=== PATIENT | female | born 1960 | race African-American/Black ===

== ENCOUNTER 2016-11-19 10:55 | Emergency (ER) | payer OTHER ==
[~2016-11-19] VITALS: Ht 167.6 cm; Wt 74.8 kg
[~2016-11-19 10:55] MED LIST: BACL10TA PO; CARB200T4 PO; EZET10TA3 PO; FENT1PAT15 TD; FERR-26 PO; HYDR-971 PO; HYDR12.58 PO; LIDO700A4 TP; OMEP20TA PO; POTA10TA5 PO; SENN1TAB9 PO; SIMV10TA3 PO
--- NOTE | 2016-11-19 11:59 | PHYS DOC ---
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 Patient is nonverbal due to CVA. She communicates by nodding her head and saying "yes" and "no." Communication is slightly difficult but manageable. She denies any chest pain or shortness of breath. Review of Systems Review of Systems Constitutional: Denies fever or chills [] Eyes: Denies change in visual acuity, redness, or eye pain [] HENT: Denies nasal congestion or sore throat [] Respiratory: Denies cough or shortness of breath [] Cardiovascular: See history of present illness GI: Midepigastric abdominal pain : Denies dysuria or hematuria [] Musculoskeletal: Denies back pain or joint pain [] Integument: Denies rash or skin lesions [] Neurologic: Denies headache, focal weakness or sensory changes [] Endocrine: Denies polyuria or polydipsia [] Current Medications Current Medications Current Medications Medications (Trade) Dose Ordered Sig/Becky Start Time Stop Time Status Last Admin Dose Admin Famotidine 20 mg 20 mg 1X ONCE 11/19/16 12:00 11/19/16 12:01 DC 11/19/16 13:40 20 MG Sodium Chloride (Iv Sodium Chloride 0.9% 1000ml Bag) 1,000 ml @ 1,000 mls/hr 1X ONCE 11/19/16 12:00 11/19/16 12:59 DC 11/19/16 13:39 1,000 MLS/HR Allergies Allergies Allergies Coded Allergies Type Severity Reaction Last Updated Verified No Known Drug Allergies 10/08/14 No Physical Exam Physical Exam Constitutional: Well developed, well nourished, no acute distress, non-toxic appearance. [] HENT: Normocephalic, atraumatic, bilateral external ears normal, oropharynx moist, no oral exudates, nose normal. [] Eyes: PERRLA, EOMI, conjunctiva normal, no discharge. [] Neck: Normal range of motion, no tenderness, supple, no stridor. [] Cardiovascular:Heart rate regular rhythm, no murmur [] Lungs & Thorax: Bilateral breath sounds clear to auscultation [] Abdomen: Flat abdomen. Bowel sounds normal, soft, no tenderness, no masses, no pulsatile masses. [] Skin: Warm, dry, no erythema, no rash. [] Back: No tenderness, no CVA tenderness. [] Extremities: No tenderness, no cyanosis, no clubbing, ROM intact, no edema. [] Neurologic: Alert and oriented X 3, normal motor function, normal sensory function, no focal deficits noted. [] Psychologic: Affect normal, judgement normal, mood normal. [] Current Patient Data Vital Signs Vital Signs Date Time Temp Pulse Resp B/P Pulse Ox O2 Delivery O2 Flow Rate FiO2 11/19/16 11:17 97.5 85 16 138/92 97 Room Air 97.5 Lab Values Laboratory Tests Test 11/19/16 11:10 11/19/16 12:50 Urine Collection Type Void Urine Color Yellow Urine Clarity Clear Urine pH 8.0 Urine Specific [place] 1.020 Urine Protein Negativemg/dL (NEG-TRACE) Urine Glucose (UA) Negativemg/dL (NEG) Urine Ketones (Stick) Negativemg/dL (NEG) Urine Blood Negative (NEG) Urine Nitrite Negative (NEG) Urine Bilirubin Negative (NEG) Urine Urobilinogen Dipstick 1.0mg/dL (0.2 mg/dL) Urine Leukocyte Esterase Negative (NEG) Urine RBC 0/HPF (0-2) Urine WBC 0/HPF (0-4) Urine Squamous Epithelial Cells Few/LPF Urine Bacteria 0/HPF (0-FEW) White Blood Count 2.6x10^3/uL (4.0-11.0) L Red Blood Count 4.41x10^6/uL (3.50-5.40) Hemoglobin 13.0g/dL (12.0-15.5) Hematocrit 40.7% (36.0-47.0) Mean Corpuscular Volume 92fL (79-100) Mean Corpuscular Hemoglobin 30pg (25-35) Mean Corpuscular Hemoglobin Concent 32g/dL (31-37) Red Cell Distribution Width 13.3% (11.5-14.5) Platelet Count 130x10^3/uL (140-400) L Neutrophils (%) (Auto) 57% (31-73) Lymphocytes (%) (Auto) 31% (24-48) Monocytes (%) (Auto) 10% (0-9) H Eosinophils (%) (Auto) 2% (0-3) Basophils (%) (Auto) 1% (0-3) Neutrophils # (Auto) 1.5x10^3uL (1.8-7.7) L Lymphocytes # (Auto) 0.8x10^3/uL (1.0-4.8) L Monocytes # (Auto) 0.3x10^3/uL (0.0-1.1) Eosinophils # (Auto) 0.1x10^3/uL (0.0-0.7) Basophils # (Auto) 0.0x10^3/uL (0.0-0.2) Sodium Level 142mmol/L (136-145) Potassium Level 3.5mmol/L (3.5-5.1) Chloride Level 103mmol/L (98-107) Carbon Dioxide Level 31mmol/L (21-32) Anion Gap 8 (6-14) Blood Urea Nitrogen 22mg/dL (7-20) H Creatinine 0.7mg/dL (0.6-1.0) Estimated GFR (Cockcroft-Gault) 104.4 BUN/Creatinine Ratio 31 (6-20) H Glucose Level 83mg/dL (70-99) Calcium Level 9.8mg/dL (8.5-10.1) Total Bilirubin 0.3mg/dL (0.2-1.0) Aspartate Amino Transferase (AST) 25U/L (15-37) Alanine Aminotransferase (ALT) 24U/L (14-59) Alkaline Phosphatase 99U/L (46-116) Total Protein 7.8g/dL (6.4-8.2) Albumin 3.6g/dL (3.4-5.0) Albumin/Globulin Ratio 0.9 (1.0-1.7) L Lipase 139U/L (73-393) Laboratory Tests 11/19/16 12:50 Laboratory Tests 11/19/16 12:50 EKG EKG [] Radiology/Procedures Radiology/Procedures [] Course & Med Decision Making Course & Med Decision Making Pertinent Labs and Imaging studies reviewed. (See chart for details) Patient is in the ED with midepigastric abdominal pain for unknown period of time. Patient has CVA and not able to communicate verbally. Communication is done mostly by her nodding her head or shaking it or saying yes or no EKG interpreted by Dr. Meyers sinus rate them heart rate 59 interval 70 no STEMI. Patient's labs are negative for any acute findings. Ultrasound is negative for acute findings.Symptoms consistent with GERD. Patient was discharged with omeprazole. Follow-up with her own PCP in 7 days. Dragon Disclaimer Dragon Disclaimer This electronic medical record was generated, in whole or in part, using a voice recognition dictation system. Departure Departure Impression: Primary Impression: Epigastric abdominal pain Disposition: 01 HOME, SELF-CARE Condition: STABLE Referrals: Marquita AGUILERA MD (PCP) follow up with your doctor next week Patient Instructions: Gastroesophageal Reflux Disease, Adult Additional Instructions: Your symptoms are suspicious for acid reflex. Take the prescribed medicines as ordered. Follow-up with your doctor in the next 7 days. Come back to the ED if symptoms worsen. Your ultrasound of the abdomen was negative for any acute findings but was noted for a cyst in one of the kidneys. Follow-up with your doctor for this. Scripts Omeprazole 20 Mg Tablet.dr1 Tab PO DAILY #20 TAB Ref 1 Prov:MARCK MA APRN 11/19/16 MARCK MA APRN Nov 19, 2016 11:59
[2016-11-19] MEDS ORDERED: FAMOTIDINE 20 MG/2 ML VIAL IVP ONE (12:00)
[2016-11-19] MEDS ORDERED: IV NORMAL SALINE 1000ML BAG 1,000 ML IV ONE (12:00)
[2016-11-19 12:32] LABS: BILIRUBIN,URINE NEGATIVE (NEG); GLUCOSE,URINE NEGATIVE (NEG); NITRITE,URINE NEGATIVE (NEG); PROTEIN,URINE NEGATIVE (NEG-TRACE)
[2016-11-19 12:33] LABS: BACTERIA,URINE 0 /HPF (0-FEW); RBC,URINE 0 /HPF (0-2); SQUAMOUS EPITHELIAL CELL,UR FEW /LPF; WBC,URINE 0 /HPF (0-4)
[2016-11-19 13:24] LABS: BASO % 1 % (0-3); EOS % 2 % (0-3); HEMATOCRIT 40.7 % (36.0-47.0); LYMPH # 0.8 x10^3/uL (1.0-4.8); LYMPH % 31 % (24-48); MEAN CORPUSCULAR HEMOGLOBIN 30 pg (25-35); MEAN CORPUSCULAR HGB CONC 32 g/dL (31-37); MEAN CORPUSCULAR VOLUME 92 fL (79-100); MONO % 10 % (0-9); NEUT % 57 % (31-73); PLATELET COUNT 130 x10^3/uL (140-400); RED BLOOD COUNT 4.41 x10^6/uL (3.50-5.40); RED CELL DISTRIBUTION WIDTH 13.3 % (11.5-14.5); WHITE BLOOD COUNT 2.6 x10^3/uL (4.0-11.0)
--- NOTE | 2016-11-19 13:24 | RAD ---
Examination: Ultrasound abdomen complete History: History of epigastric pain Comparison: 11/09/2005 Findings: Examination is limited due to bowel gas. No evidence of gallstones identified. The pancreas, aorta, IVC, spleen are poorly visualized due to bowel gas. The left kidney could not be identified due to bowel gas. The echogenicity the liver grossly appears unremarkable. The right kidney measures 9.5 x 4 0.4 to 4.3 cm. There is a 8 mm cystic structure identified in the right kidney probably cyst. Impression: 1. No obvious evidence of gallstones 2. Examination limited due to bowel gas. 2. Subcentimeter cystic structure identified in the right kidney probably a cyst.
[2016-11-19 13:28] LABS: CALCIUM 9.8 mg/dL (8.5-10.1); CREATININE 0.7 mg/dL (0.6-1.0); GFR 104.4; POTASSIUM 3.5 mmol/L (3.5-5.1)
[2016-11-19 13:34] LABS: ALBUMIN 3.6 g/dL (3.4-5.0); ALBUMIN/GLOBULIN RATIO 0.9 (1.0-1.7); TOTAL BILIRUBIN 0.3 mg/dL (0.2-1.0); TOTAL PROTEIN 7.8 g/dL (6.4-8.2)
[2016-11-19] MEDS ORDERED: OMEP20TA PO (14:23)
[2016-11-19 15:06] VITALS: BP 143/86
--- NOTE | 2016-11-19 15:10 | EKG ---
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
== END 2016-11-19 15:52 | disposition home or self-care (01) ==
LOC: ER 10:55
DX: R10.13 Epigastric pain (principal); K21.9 Gastro-esophageal reflux disease without esophagitis; G81.91 Hemiplegia, unspecified affecting right dominant side; Z86.73 Personal history of transient ischemic attack (TIA), and cerebral infarction without residual deficits
CPT/HCPCS: 36415; 76700; 80053; 81001; 83690; 85027; 93005; 96361; 96374; 99285; J7030; S0028

== ENCOUNTER 2017-04-19 22:25 | Emergency (ER) | payer OTHER ==
[~2017-04-19] VITALS: Ht 162.6 cm; Wt 74.8 kg
[~2017-04-19 22:25] MED LIST changes: +EZET10TA18 PO; -EZET10TA3 PO; -OMEP20TA PO; +OMEP20TA8 PO
[2017-04-19] MEDS ORDERED: OMEP20TA8 PO (22:53)
[2017-04-19 23:18] LABS: BILIRUBIN,URINE NEGATIVE (NEG); GLUCOSE,URINE NEGATIVE (NEG); NITRITE,URINE NEGATIVE (NEG); PROTEIN,URINE NEGATIVE (NEG-TRACE); UROBILINOGEN,URINE 0.2 mg/dL (0.2 mg/dL)
--- NOTE | 2017-04-19 23:23 | RAD ---
CT Abdomen and Pelvis without contrast History: Left upper quadrant pain today Technique: Noncontrast CT imaging was performed of the abdomen and pelvis. Multiplanar images are reviewed. Exposure: One or more of the following individualized dose reduction techniques were utilized for this examination: 1. Automated exposure control 2. Adjustment of the mA and/or kV according to patient size 3. Use of iterative reconstruction technique. Comparison: August 09, 2016 Findings: There is motion degradation.Accurate evaluation of abdominal visceral organs is limited without intravenous contrast, also limited evaluation due to motion. There is no new obvious abnormality of the spleen, liver, or pancreas. Gallbladder is present without obvious intraluminal abnormality by CT. There is no adrenal nodularity. No urolithiasis or hydronephrosis is identified. No significantly enlarged nodes are identified. Accurate evaluation of bowel is limited without oral contrast. There is variable fairly prominent retained stool in the colon. Appendix cannot be clearly identified if still present. There is artifact in the pelvis created by right hip arthroplasty. There is no significant free air, free fluid, or small bowel dilatation. There is mild reverse S-shaped curvature of the thoracolumbar spine. Impression: 1. There is variable prominent retained stool in the colon. Electronically signed by: Alex Alejandra MD (04/19/2017 11:19 PM) [facility]
[2017-04-19 23:31] LABS: BACTERIA,URINE MOD /HPF (0-FEW); RBC,URINE OCC /HPF (0-2); SQUAMOUS EPITHELIAL CELL,UR MOD /LPF; WBC,URINE >40 /HPF (0-4)
[2017-04-19 23:42] LABS: BASO % 1 % (0-3); EOS % 2 % (0-3); HEMATOCRIT 38.3 % (36.0-47.0); LYMPH # 1.2 x10^3/uL (1.0-4.8); LYMPH % 42 % (24-48); MEAN CORPUSCULAR HEMOGLOBIN 29 pg (25-35); MEAN CORPUSCULAR HGB CONC 34 g/dL (31-37); MEAN CORPUSCULAR VOLUME 86 fL (79-100); MONO % 11 % (0-9); NEUT % 45 % (31-73); PLATELET COUNT 138 x10^3/uL (140-400); RED BLOOD COUNT 4.44 x10^6/uL (3.50-5.40); RED CELL DISTRIBUTION WIDTH 14.2 % (11.5-14.5); WHITE BLOOD COUNT 2.8 x10^3/uL (4.0-11.0)
[2017-04-19 23:48] LABS: CALCIUM 8.8 mg/dL (8.5-10.1); CREATININE 0.9 mg/dL (0.6-1.0); GFR 77.8; POTASSIUM 3.4 mmol/L (3.5-5.1)
[2017-04-19 23:54] LABS: ALBUMIN 3.3 g/dL (3.4-5.0); ALBUMIN/GLOBULIN RATIO 0.8 (1.0-1.7); TOTAL BILIRUBIN 0.1 mg/dL (0.2-1.0); TOTAL PROTEIN 7.4 g/dL (6.4-8.2)
[2017-04-20] MEDS ORDERED: SULF1TAB24 PO (00:37)
--- NOTE | 2017-04-20 00:37 | PHYS DOC ---
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 It is mild nonradiating and without alleviating or exacerbating factors. She denies any vomiting blood in stool or diarrhea. Review of systems is negative for shortness of breath chest pain fevers chills. All other review of systems is negative unless otherwise noted in history of present illness. ED course: 57-year-old female with a history of CVA with residual deficits presenting to the emergency department today with left upper quadrant abdominal pain. Vital signs showed mild chronic hypertension. Otherwise unremarkable. Abdominal exam:Soft nontender abdomen without rebound tenderness or guarding present. Negative McBurneys point. Negative Pulido sign. No ecchymosis present. Otherwise the remainder the examination shows previous left-sided neurologic deficits. Blood work obtained. CT abdomen obtained. Patient has mild leukopenia. Urinalysis showed possible infection. Culture sent and antibiotics ordered. Chemistry panel otherwise unremarkable. The abdomen pelvis CT shows no acute pathology. The patient was then discharged home in stable condition to follow up with their primary care physician over the next 2-3 days. They were to return if their symptoms worsened or if they were concerned for any reason. [id number] discharge instructions and return precautions were given. Patient' s questions were answered to their satisfaction. Patient is comfortable plan. Review of Systems Review of Systems SEE ABOVE. Allergies Allergies Allergies Coded Allergies Type Severity Reaction Last Updated Verified No Known Drug Allergies 10/08/14 No Physical Exam Physical Exam SEE ABOVE Constitutional: Well developed, well nourished, no acute distress, non-toxic appearance. [] HENT: Normocephalic, atraumatic, bilateral external ears normal, oropharynx moist, no oral exudates, nose normal. [] Eyes: PERRLA, EOMI, conjunctiva normal, no discharge. [] Neck: Normal range of motion, no tenderness, supple, no stridor. [] Cardiovascular:Heart rate regular rhythm, no murmur [] Lungs & Thorax: Bilateral breath sounds clear to auscultation [] Abdomen: Soft nontender abdomen without rebound tenderness or guarding present. Negative McBurneys point. Negative Pulido sign. No ecchymosis present. Skin: Warm, dry, no erythema, no rash. [] Back: No tenderness, no CVA tenderness. [] Extremities: No tenderness, no cyanosis, no clubbing, ROM intact, no edema. [] Neurologic: Alert and oriented . pt has chronic right-sided upper and left lower extremity deficits without any acute changes or new deficits. She has chronic aphasia without acute changes. Psychologic: Affect normal, judgement normal, mood normal. [] Current Patient Data Vital Signs Vital Signs Date Time Temp Pulse Resp B/P (MAP) Pulse Ox O2 Delivery O2 Flow Rate FiO2 04/19/17 22:25 97.7 65 20 150/75 (100) 100 Room Air 97.7 Lab Values Laboratory Tests Test 04/19/17 22:55 04/19/17 23:30 Urine Collection Type U cath Urine Color Yellow Urine Clarity Clear Urine pH 6.0 Urine Specific [place] 1.015 Urine Protein Negative mg/dL (NEG-TRACE) Urine Glucose (UA) Negative mg/dL (NEG) Urine Ketones (Stick) Negative mg/dL (NEG) Urine Blood Negative (NEG) Urine Nitrite Negative (NEG) Urine Bilirubin Negative (NEG) Urine Urobilinogen Dipstick 0.2 mg/dL (0.2 mg/dL) Urine Leukocyte Esterase Moderate (NEG) Urine RBC Occ /HPF (0-2) Urine WBC >40 /HPF (0-4) Urine Squamous Epithelial Cells Mod /LPF Urine Bacteria Mod /HPF (0-FEW) White Blood Count 2.8 x10^3/uL (4.0-11.0) L Red Blood Count 4.44 x10^6/uL (3.50-5.40) Hemoglobin 13.0 g/dL (12.0-15.5) Hematocrit 38.3 % (36.0-47.0) Mean Corpuscular Volume 86 fL (79-100) Mean Corpuscular Hemoglobin 29 pg (25-35) Mean Corpuscular Hemoglobin Concent 34 g/dL (31-37) Red Cell Distribution Width 14.2 % (11.5-14.5) Platelet Count 138 x10^3/uL (140-400) L Neutrophils (%) (Auto) 45 % (31-73) Lymphocytes (%) (Auto) 42 % (24-48) Monocytes (%) (Auto) 11 % (0-9) H Eosinophils (%) (Auto) 2 % (0-3) Basophils (%) (Auto) 1 % (0-3) Neutrophils # (Auto) 1.3 x10^3uL (1.8-7.7) L Lymphocytes # (Auto) 1.2 x10^3/uL (1.0-4.8) Monocytes # (Auto) 0.3 x10^3/uL (0.0-1.1) Eosinophils # (Auto) 0.0 x10^3/uL (0.0-0.7) Basophils # (Auto) 0.0 x10^3/uL (0.0-0.2) Sodium Level 145 mmol/L (136-145) Potassium Level 3.4 mmol/L (3.5-5.1) L Chloride Level 105 mmol/L (98-107) Carbon Dioxide Level 33 mmol/L (21-32) H Anion Gap 7 (6-14) Blood Urea Nitrogen 21 mg/dL (7-20) H Creatinine 0.9 mg/dL (0.6-1.0) Estimated GFR (Cockcroft-Gault) 77.8 BUN/Creatinine Ratio 23 (6-20) H Glucose Level 96 mg/dL (70-99) Calcium Level 8.8 mg/dL (8.5-10.1) Total Bilirubin 0.1 mg/dL (0.2-1.0) L Aspartate Amino Transferase (AST) 20 U/L (15-37) Alanine Aminotransferase (ALT) 24 U/L (14-59) Alkaline Phosphatase 116 U/L (46-116) Troponin I Quantitative < 0.017 ng/mL (0.000-0.055) Total Protein 7.4 g/dL (6.4-8.2) Albumin 3.3 g/dL (3.4-5.0) L Albumin/Globulin Ratio 0.8 (1.0-1.7) L Lipase 178 U/L (73-393) Laboratory Tests 04/19/17 23:30 Laboratory Tests 04/19/17 23:30 EKG EKG [] Radiology/Procedures Radiology/Procedures [] Course & Med Decision Making Course & Med Decision Making Pertinent Labs and Imaging studies reviewed. (See chart for details) [] Dragon Disclaimer Dragon Disclaimer This electronic medical record was generated, in whole or in part, using a voice recognition dictation system. Departure Departure Impression: Primary Impression: Epigastric abdominal pain Additional Impression: UTI (urinary tract infection) Disposition: HOME, SELF-CARE Condition: STABLE Referrals: Marquita AGUILERA MD (PCP) Patient Instructions: Abdominal Pain (Nonspecific), Urinary Tract Infection Additional Instructions: Thank you for allowing us to participate in your care today. Followup with your primary care physician in 3 days if your symptoms do not improve. Call your Primary Doctor tomorrow and inform them of your visit today. If you do not have a primary care provider you can ask for a list of our primary care providers. Return to the emergency department you have any new or concerning findings. This should be evaluated by the primary care physician and any necessary consulting services for continued management within a few days after discharge. Return to emergency room if you have any new or concerning symptoms including but not limited to fever, chills, nausea, vomiting, intractable pain, any new rashes, chest pain, shortness of air, uncontrolled bleeding, difficulty breathing, and/or vision loss. Scripts Sulfamethoxazole/Trimethoprim (BACTRIM DS TABLET) 1 Each Tablet 1 TAB PO BID, #14 TAB Prov: RICHARD SON MD 04/20/17 Problem Qualifiers RICHARD SON MD Apr 20, 2017 00:37
[2017-04-20 01:10] VITALS: BP 150/78
== END 2017-04-20 01:15 | disposition home or self-care (01) ==
LOC: ER 22:25
DX: N39.0 Urinary tract infection, site not specified (principal); R10.13 Epigastric pain; I10 Essential (primary) hypertension; K21.9 Gastro-esophageal reflux disease without esophagitis; Z86.73 Personal history of transient ischemic attack (TIA), and cerebral infarction without residual deficits
CPT/HCPCS: 36415; 74176; 80053; 81001; 83690; 84484; 85025; 99285-25

== ENCOUNTER 2017-10-02 08:30 | Emergency (ER) | payer OTHER | END 2017-10-02 10:38 | disposition home or self-care (01) | LOC: ER 10:38 | DX: J06.9 Acute upper respiratory infection, unspecified (principal); K21.9 Gastro-esophageal reflux disease without esophagitis | CPT/HCPCS: 71046; 99284 ==

== ENCOUNTER 2018-09-10 15:23 | Emergency (ER) | payer OTHER ==
[~2018-09-10] VITALS: Ht 162.6 cm; Wt 64.4 kg
[~2018-09-10 15:23] MED LIST changes: +BACL20TA PO; +BENZ100C PO; -FERR-26 PO; +FERR325T14 PO; +HYDR-2765 PO; +HYDR-3164 PO; -HYDR-971 PO; +LEVO250T25 PO; +LOSA-73 PO; +NAPR-683 PO; +OMEP20CA9 PO; +POLY17PO28 PO; +POTA10TA12 PO; -POTA10TA5 PO; +PROAIR RESPICL90 MCG IH; +SULF1TAB24 PO
[2018-09-10] MEDS ORDERED: CYCLOBENZAPRINE 10 MG TABLET. PO ONE (15:45)
[2018-09-10] MEDS ORDERED: HYDROcodone/APAP 5/325MG 1 TAB TABLET PO ONE (15:45)
--- NOTE | 2018-09-10 15:46 | PHYS DOC ---
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 Patient denies any known injury. She states she is usually ambulatory with a walker and has not fallen recently. Denies any chest pain, shortness of breath. Denies any recent hospitalizations. Denies any personal history of DVTs. She is not sure which blood thinners she is on. I highly suspect Plavix and or aspirin. Review of Systems Review of Systems Constitutional: Denies fever or chills [] Eyes: Denies change in visual acuity, redness, or eye pain [] HENT: Denies nasal congestion or sore throat [] Respiratory: Denies cough or shortness of breath [] Cardiovascular: No additional information not addressed in HPI [] GI: Denies abdominal pain, nausea, vomiting, bloody stools or diarrhea [] : Denies dysuria or hematuria [] Musculoskeletal: Reports right ventral thigh pain. Denies back pain or joint pain [] Integument: Denies rash or skin lesions [] Neurologic: Denies headache, focal weakness or sensory changes [] All other systems were reviewed and found to be within normal limits, except as documented in this note. Current Medications Current Medications Current Medications Medications (Trade) Dose Ordered Sig/Becky Start Time Stop Time Status Last Admin Dose Admin Acetaminophen/ Hydrocodone Bitart (Lortab 5/325) 1 tab 1X ONCE 09/10/18 15:45 09/10/18 15:46 DC 09/10/18 16:40 1 TAB Cyclobenzaprine HCl (Flexeril) 10 mg 1X ONCE 09/10/18 15:45 09/10/18 15:46 DC 09/10/18 16:40 10 MG Potassium Chloride (Klor-Con) 40 meq 1X ONCE 09/10/18 17:15 09/10/18 17:16 DC 09/10/18 17:48 40 MEQ Allergies Allergies Allergies Coded Allergies Type Severity Reaction Last Updated Verified ceftriaxone Allergy Intermediate SWELLING,HIVES 10/16/17 Yes Physical Exam Physical Exam Constitutional: Well developed, well nourished, no acute distress, non-toxic appearance. [] HENT: Normocephalic, atraumatic, bilateral external ears normal, oropharynx moist, no oral exudates, nose normal. [] Eyes: PERRLA, EOMI, conjunctiva normal, no discharge. [] Neck: Normal range of motion, no tenderness, supple, no stridor. [] Cardiovascular:Heart rate regular rhythm, no murmur [] Lungs & Thorax: Bilateral breath sounds clear to auscultation [] Abdomen: Bowel sounds normal, soft, no tenderness, no masses, no pulsatile masses. [] Skin: Warm, dry, no erythema, no rash. [] Back: No tenderness, no CVA tenderness. [] Extremities: Patient's right side appears deformed from a previous stroke. Right upper extremity is contracted, right hand is in a splint. Right lower extremity is in the leg brace. Tenderness on palpation on patient's right mid femur. Limited range of motion to the right lower extremity mostly due to pain and deformity from the previous CVA. Negative Homans sign to the right lower extremity. +2 right pedal pulse. Cap refill less than 2 seconds the right lower extremity. Neurologic:Patient is aphasic. Alert and oriented X 3, normal motor function, normal sensory function, no focal deficits noted. Cranial nerves II through XII intact Psychologic: Affect normal, judgement normal, mood normal. [] Current Patient Data Vital Signs Vital Signs Date Time Temp Pulse Resp B/P (MAP) Pulse Ox O2 Delivery O2 Flow Rate FiO2 09/10/18 17:30 50 18 164/74 (104) 98 Room Air 09/10/18 15:23 98.1 98.1 Lab Values Laboratory Tests Test 09/10/18 16:40 09/10/18 17:02 White Blood Count 3.1 x10^3/uL (4.0-11.0) L Red Blood Count 4.84 x10^6/uL (3.50-5.40) Hemoglobin 14.6 g/dL (12.0-15.5) Hematocrit 43.3 % (36.0-47.0) Mean Corpuscular Volume 90 fL (79-100) Mean Corpuscular Hemoglobin 30 pg (25-35) Mean Corpuscular Hemoglobin Concent 34 g/dL (31-37) Red Cell Distribution Width 13.5 % (11.5-14.5) Platelet Count 162 x10^3/uL (140-400) Neutrophils (%) (Auto) 59 % (31-73) Lymphocytes (%) (Auto) 33 % (24-48) Monocytes (%) (Auto) 6 % (0-9) Eosinophils (%) (Auto) 1 % (0-3) Basophils (%) (Auto) 1 % (0-3) Neutrophils # (Auto) 1.8 x10^3uL (1.8-7.7) Lymphocytes # (Auto) 1.0 x10^3/uL (1.0-4.8) Monocytes # (Auto) 0.2 x10^3/uL (0.0-1.1) Eosinophils # (Auto) 0.0 x10^3/uL (0.0-0.7) Basophils # (Auto) 0.0 x10^3/uL (0.0-0.2) Prothrombin Time 12.5 SEC (11.7-14.0) Prothrombin Time INR 1.0 (0.8-1.1) PTT 29 SEC (24-38) Sodium Level 141 mmol/L (136-145) Potassium Level 3.1 mmol/L (3.5-5.1) L Chloride Level 100 mmol/L (98-107) Carbon Dioxide Level 33 mmol/L (21-32) H Anion Gap 8 (6-14) Blood Urea Nitrogen 17 mg/dL (7-20) Creatinine 0.8 mg/dL (0.6-1.0) Estimated GFR (Cockcroft-Gault) 88.8 Glucose Level 86 mg/dL (70-99) Calcium Level 10.3 mg/dL (8.5-10.1) H Urine Collection Type Unknown Urine Color Yellow Urine Clarity Clear Urine pH 5.5 Urine Specific [place] 1.025 Urine Protein 30 mg/dL (NEG-TRACE) Urine Glucose (UA) Negative mg/dL (NEG) Urine Ketones (Stick) Negative mg/dL (NEG) Urine Blood Trace (NEG) Urine Nitrite Negative (NEG) Urine Bilirubin Negative (NEG) Urine Urobilinogen Dipstick 0.2 mg/dL (0.2 mg/dL) Urine Leukocyte Esterase Trace (NEG) Urine RBC Occ /HPF (0-2) Urine WBC Occ /HPF (0-4) Urine Squamous Epithelial Cells Few /LPF Urine Bacteria 0 /HPF (0-FEW) Urine Mucus Slight /LPF Laboratory Tests 09/10/18 16:40 Laboratory Tests 09/10/18 16:40 EKG EKG [] Radiology/Procedures Radiology/Procedures []PROCEDURE: VENOUS LOWER EXTREMITY RIGHT EXAM: Right lower extremity venous Doppler sonogram. HISTORY: Pain and swelling. TECHNIQUE: Garcia scale and color Doppler sonographic evaluation of the right lower extremity veins with spectral waveform analysis was performed. FINDINGS: The exam is limited due to patient paralysis and bandage material overlying the mid and distal right calf. The right posterior mid to distal right posterior tibial and peroneal veins and anterior tibial vein are not seen. There is normal color flow, normal compressibility and there are normal spectral waveforms in the remainder of the right lower extremity veins. IMPRESSION: No Doppler evidence of lower extremity deep venous thrombosis, with nonassessment of the majority of the calf veins due to patient immobility and bandage material. Electronically signed by: Mary Wisdom MD (09/10/2018 5:10 PM) [facility] DICTATED and SIGNED BY: MAYR WISDOM MD DATE: 09/10/18 1709 PROCEDURE: RIGHT FEMUR XRAY PELVIS, RIGHT FEMUR XRAY History: right hip pain. Comparison: There is a right hip replacement. There is severe thinning of the cortical bone just below the trochanters. This starts at the level of the lesser trochanter and extends distally about 5 cm. No evidence of an acute appearing macro fracture. No dislocation. Generalized bone demineralization. The left hip as seen on the AP pelvis image appears intact. There is extensive bowel gas and stool obscuring the pelvis above the hips and sacrum. IMPRESSION: 1. Cortical thinning of the subtrochanteric right femur of uncertain acuteness or chronicity, could be related to osteolysis or infection. There is very little visualized bone around the prosthesis stem about 5 cm below the trochanter. 2. No evidence of an acute fracture. Electronically signed by: Varghese Aguilera MD (09/10/2018 4:33 PM) [facility] DICTATED and SIGNED BY: VARGHESE AGUILERA MD DATE: 09/10/18 0984 Course & Med Decision Making Course & Med Decision Making Pertinent Labs and Imaging studies reviewed. (See chart for details) This is a 58-year-old female patient with history of CVA, right-sided paralysis , aphasic who presents today complaining of right femur pain that began 3 hours as needed. No known injury. CBC with a WBC of 3.1, this is around patient's baseline history of cancer. BMP with potassium of 3.1, patient was given oral potassium replacement. Venous Doppler was obtained of the right lower extremity, this is documented is a difficult exam because of patient's deformities. Doppler is negative for DVT though there were unable to scan the entire right lower extremity well. Right femur x-ray, right hip and pelvis x-rays interpreted by radiologist were negative for any acute fracture, noted for cortical thinning of the subtrochanteric right femur of uncertain acuteness or chronicity, could be related to osteolysis or infection. There is very little visualized bone around the prosthesis stem about 5 cm below the trochanter. Results discussed with Dr. Betts, we suspect patient has osteolysis rather than infection. She has no redness to the thigh/femur, no warmth and is currently afebrile. D/C with instructions to f/u with PCP and Ortho in the course of this week. Discharged with prescription for Voltaren cream. Staff Physician Addendum: I was working in the ER during the course of this patient's visit. I was available for consultation as needed, but I was not directly involved in the care of this patient. Dragon Disclaimer Dragon Disclaimer This electronic medical record was generated, in whole or in part, using a voice recognition dictation system. Departure Departure Impression: Primary Impression: Right thigh pain Additional Impression: Hypokalemia Disposition: HOME, SELF-CARE Condition: STABLE Referrals: Marquita AGUILERA MD (PCP) Follow-up next week MARLEY ONEIL II, MD Follow up with the orthopedic doctor in one week Patient Instructions: Hypokalemia-Brief, Musculoskeletal Pain Additional Instructions: You were evaluated in the emergency room for right thigh pain. We put you on medications, use them as prescribed. Increase your dietary potassium intake through foods like bananas. Follow-up with the orthopedic doctor and primary care doctor in the course of next week. Scripts Diclofenac Sodium (VOLTAREN) 100 Gm Gel..gram. 1 GM TP QID, #100 GM 2 Refills Prov: MARCK MA APRN 09/10/18 Problem Qualifiers MARCK MA APRN Sep 10, 2018 15:46 WILFRED RACHEL MD Sep 11, 2018 06:48
--- NOTE | 2018-09-10 16:37 | RAD ---
PELVIS, RIGHT FEMUR XRAY History: right hip pain. Comparison: There is a right hip replacement. There is severe thinning of the cortical bone just below the trochanters. This starts at the level of the lesser trochanter and extends distally about 5 cm. No evidence of an acute appearing macro fracture. No dislocation. Generalized bone demineralization. The left hip as seen on the AP pelvis image appears intact. There is extensive bowel gas and stool obscuring the pelvis above the hips and sacrum. IMPRESSION: 1. Cortical thinning of the subtrochanteric right femur of uncertain acuteness or chronicity, could be related to osteolysis or infection. There is very little visualized bone around the prosthesis stem about 5 cm below the trochanter. 2. No evidence of an acute fracture. Electronically signed by: Varghese Aguilera MD (09/10/2018 4:33 PM) [facility]
[2018-09-10 17:00] LABS: BASO % 1 % (0-3); CALCIUM 10.3 mg/dL (8.5-10.1); CREATININE 0.8 mg/dL (0.6-1.0); EOS % 1 % (0-3); GFR 88.8; HEMATOCRIT 43.3 % (36.0-47.0); HEMOGLOBIN 14.6 g/dL (12.0-15.5); LYMPH % 33 % (24-48); MEAN CORPUSCULAR HEMOGLOBIN 30 pg (25-35); MEAN CORPUSCULAR HGB CONC 34 g/dL (31-37); MEAN CORPUSCULAR VOLUME 90 fL (79-100); MONO # 0.2 x10^3/uL (0.0-1.1); MONO % 6 % (0-9); NEUT # 1.8 x10^3uL (1.8-7.7); NEUT % 59 % (31-73); PLATELET COUNT 162 x10^3/uL (140-400); POTASSIUM 3.1 mmol/L (3.5-5.1); RED BLOOD COUNT 4.84 x10^6/uL (3.50-5.40); RED CELL DISTRIBUTION WIDTH 13.5 % (11.5-14.5); WHITE BLOOD COUNT 3.1 x10^3/uL (4.0-11.0)
[2018-09-10 17:07] LABS: PROTHROMBIN TIME PATIENT 12.5 SEC (11.7-14.0)
--- NOTE | 2018-09-10 17:14 | RAD ---
EXAM: Right lower extremity venous Doppler sonogram. HISTORY: Pain and swelling. TECHNIQUE: Garcia scale and color Doppler sonographic evaluation of the right lower extremity veins with spectral waveform analysis was performed. FINDINGS: The exam is limited due to patient paralysis and bandage material overlying the mid and distal right calf. The right posterior mid to distal right posterior tibial and peroneal veins and anterior tibial vein are not seen. There is normal color flow, normal compressibility and there are normal spectral waveforms in the remainder of the right lower extremity veins. IMPRESSION: No Doppler evidence of lower extremity deep venous thrombosis, with nonassessment of the majority of the calf veins due to patient immobility and bandage material. Electronically signed by: Mary Hernandez MD (09/10/2018 5:10 PM) [id number]
[2018-09-10] MEDS ORDERED: POTASSIUM CHLORIDE 20 MEQ TABLET.ER. PO ONE (17:15)
[2018-09-10 17:16] LABS: BILIRUBIN,URINE NEGATIVE (NEG); CLARITY,URINE CLEAR; COLOR,URINE YELLOW; NITRITE,URINE NEGATIVE (NEG); PH,URINE 5.5; PROTEIN,URINE 30 mg/dL (NEG-TRACE); UROBILINOGEN,URINE 0.2 mg/dL (0.2 mg/dL)
[2018-09-10 17:24] LABS: BACTERIA,URINE 0 /HPF (0-FEW); RBC,URINE OCC /HPF (0-2); SQUAMOUS EPITHELIAL CELL,UR FEW /LPF; WBC,URINE OCC /HPF (0-4)
[2018-09-10 17:30] VITALS: BP 164/74
[2018-09-10] MEDS ORDERED: DICL100G18 TP (17:53)
== END 2018-09-10 20:10 | disposition home or self-care (01) ==
LOC: ER 15:23
DX: M79.651 Pain in right thigh (principal); E87.6 Hypokalemia; K21.9 Gastro-esophageal reflux disease without esophagitis; Z86.73 Personal history of transient ischemic attack (TIA), and cerebral infarction without residual deficits; Z88.8 Allergy status to other drugs, medicaments and biological substances
CPT/HCPCS: 36415; 72170; 73552; 80048; 81001; 85025; 85610; 85730; 87086; 93971; 99284

== ENCOUNTER 2018-12-05 09:56 | Emergency (ER) | payer OTHER ==
[~2018-12-05] VITALS: Ht 162.6 cm; Wt 64.4 kg
[~2018-12-05 09:56] MED LIST changes: +DICL100G18 TP; +OMEP20CA10 PO; -OMEP20CA9 PO; +SENN-162 PO; -SENN1TAB9 PO
[2018-12-05 10:58] LABS: BILIRUBIN,URINE NEGATIVE (NEG); CLARITY,URINE CLEAR; COLOR,URINE YELLOW; NITRITE,URINE NEGATIVE (NEG); PH,URINE 6.5; PROTEIN,URINE NEGATIVE (NEG-TRACE); UROBILINOGEN,URINE 0.2 mg/dL (0.2 mg/dL)
--- NOTE | 2018-12-05 11:05 | RAD ---
EXAM: CT HEAD WITHOUT IV CONTRAST CLINICAL HISTORY: PAIN, POOR HISTORIAN
PREVIOUS COMPARISON: None. TECHNIQUE: Routine CT of the head without contrast. Soft tissues and bone windows were reviewed. PQRS compliance statement - One or more of the following individualized dose reduction techniques were utilized for this study: 1. Automated exposure control 2. Adjustment of the mA and/or kV according to patient size 3. Use of iterative reconstruction technique FINDINGS: Changes of left frontoparietal-temporal infarct are again seen, grossly unchanged. Associated ex vacuo dilatation of the left lateral ventricle. Diffuse subcortical and periventricular regions of hypoattenuation, likely changes of chronic small vessel disease. Wedge-shaped right cerebellar infarct is also seen. No evidence for parenchymal hemorrhage. No definite mass or extra-axial fluid collection. There is no mass effect or shift of the intracranial structures. The ventricles and cerebral sulci are prominent for the patients stated age consistent with generalized cerebral volume loss. The cerebellum and brainstem are otherwise unremarkable. The calvarium demonstrates no evidence of fracture or focal lesion. There is normal aeration of the visualized paranasal sinuses and mastoid air cells. The visualized portions of the orbits are normal. IMPRESSION: No evidence for acute intracranial process. Old left MCA distribution infarct. Changes of chronic small vessel disease. EXAM: CT CERVICAL SPINE WITHOUT IV CONTRAST CLINICAL HISTORY: PAIN, POOR HISTORIAN
PREVIOUS COMPARISON: None available. TECHNIQUE: Helical CT of the cervical spine was performed. Axial, coronal and sagittal reformatted images were also performed. PQRS compliance statement - One or more of the following individualized dose reduction techniques were utilized for this study: 1. Automated exposure control 2. Adjustment of the mA and/or kV according to patient size 3. Use of iterative reconstruction technique FINDINGS: There is preservation of height of the vertebral bodies with normal bone density. There is normal alignment of the cervical spine. The height of the intervertebral discs is maintained. C2-C3: There is no evidence of disc herniation, spinal stenosis or foraminal compromise. C3-C4: There is no evidence of disc herniation, spinal stenosis or foraminal compromise. C4-C5: There is no evidence of disc herniation, spinal stenosis or foraminal compromise. C5-C6: There is no evidence of disc herniation, spinal stenosis or foraminal compromise. C6-C7: There is no evidence of disc herniation, spinal stenosis or foraminal compromise. C7-T1: There is no evidence of disc herniation, spinal stenosis or foraminal compromise. IMPRESSION: Normal CT scan of the cervical spine. Electronically signed by: Mikey Vallejo MD (12/05/2018 11:02 AM) [id number]
[2018-12-05 11:09] LABS: BACTERIA,URINE 0 /HPF (0-FEW); RBC,URINE 0 /HPF (0-2); WBC,URINE OCC /HPF (0-4)
--- NOTE | 2018-12-05 12:04 | RAD ---
EXAM: Right hip and pelvis, 3 views; right tibia and fibula, 2 views; right knee, 3 views. HISTORY: Fall. Pain. COMPARISON: None. FINDINGS: Pelvis and right hip: A frontal view of the pelvis and frontal and frog-leg views of the right hip are obtained. There is a right hip arthroplasty in expected position. There is a healed fracture deformity of the proximal femoral metaphysis. There is a small chronic nonunited or partially nonunited fracture fragment involving the lesser trochanter. Right knee and tibia and fibula: 3 views the right knee and 2 views right tibia and fibula are obtained. There is no acute fracture. There is suspected patella conner. No joint effusion is seen. There is no lytic or sclerotic osseous lesion. There is suspected bone demineralization. IMPRESSION: 1. Right hip arthroplasty in expected position. The femoral stem component traverses a healed proximal femoral fracture. 2. Suspected patella conner. Electronically signed by: Mary Hernandez MD (12/05/2018 12:01 PM) [facility]
[2018-12-05] MEDS ORDERED: POTA10TA12 PO (13:03)
--- NOTE | 2018-12-05 13:04 | PHYS DOC ---
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 Patient denies any loss of consciousness. Denies hitting her head on the ground though this part is hard to evaluate considering the speech impairment. Review of Systems Review of Systems Constitutional: Denies fever or chills [] Eyes: Denies change in visual acuity, redness, or eye pain [] HENT: Denies nasal congestion or sore throat [] Respiratory: Denies cough or shortness of breath [] Cardiovascular: No additional information not addressed in HPI [] GI: Denies abdominal pain, nausea, vomiting, bloody stools or diarrhea [] : Denies dysuria or hematuria [] Musculoskeletal: Reports right leg pain Integument: Denies rash or skin lesions [] Neurologic: Denies headache, focal weakness or sensory changes [] All other systems were reviewed and found to be within normal limits, except as documented in this note. Allergies Allergies Allergies Coded Allergies Type Severity Reaction Last Updated Verified ceftriaxone Allergy Intermediate SWELLING,HIVES 10/16/17 Yes Physical Exam Physical Exam Constitutional: Well developed, well nourished, no acute distress, non-toxic appearance. [] HENT: Normocephalic, atraumatic, bilateral external ears normal, oropharynx moist, no oral exudates, nose normal. [] Eyes: PERRLA, EOMI, conjunctiva normal, no discharge. [] Neck: Normal range of motion, no tenderness, supple, no stridor. [] Cardiovascular:Heart rate regular rhythm, no murmur [] Lungs & Thorax: Bilateral breath sounds clear to auscultation [] Abdomen: Bowel sounds normal, soft, no tenderness, no masses, no pulsatile masses. [] Skin: Warm, dry, no erythema, no rash. [] Back: No tenderness, no CVA tenderness. [] Extremities: Right upper extremity is contracted. Right lower extremity is internally rotated at the foot, all this from the previous CVA. Diffuse tenderness noted throughout the right lateral thigh. Range of motion intact considering previous CVA. +2 right pedal pulse. Neurologic: Alert and oriented X 3, normal motor function, normal sensory function, no focal deficits noted. [] Psychologic: Affect normal, judgement normal, mood normal. [] Current Patient Data Vital Signs Vital Signs Date Time Temp Pulse Resp B/P (MAP) Pulse Ox O2 Delivery O2 Flow Rate FiO2 12/05/18 10:10 98.1 52 16 138/66 (90) 100 Room Air 98.1 Lab Values Laboratory Tests Test 12/05/18 10:47 Urine Collection Type U cath Urine Color Yellow Urine Clarity Clear Urine pH 6.5 Urine Specific [place] 1.010 Urine Protein Negative mg/dL (NEG-TRACE) Urine Glucose (UA) Negative mg/dL (NEG) Urine Ketones (Stick) Negative mg/dL (NEG) Urine Blood Negative (NEG) Urine Nitrite Negative (NEG) Urine Bilirubin Negative (NEG) Urine Urobilinogen Dipstick 0.2 mg/dL (0.2 mg/dL) Urine Leukocyte Esterase Negative (NEG) Urine RBC 0 /HPF (0-2) Urine WBC Occ /HPF (0-4) Urine Bacteria 0 /HPF (0-FEW) EKG EKG [] Radiology/Procedures Radiology/Procedures [] Course & Med Decision Making Course & Med Decision Making Pertinent Labs and Imaging studies reviewed. (See chart for details) This is a 58-year-old female patient presenting to the ED today with right leg pain status post falling this morning. Patient has history of CVA, upper extremity is contracted, right lower extremity has chronic internal rotation. CT of the head and cervical spine are negative for any acute findings, x-rays of the right thigh including pelvis is negative, right knee x-rays, tib/fib x- rays are negative. Patient is in no distress. Urine analysis is negative. Will be discharged back home. Dragon Disclaimer Dragon Disclaimer This electronic medical record was generated, in whole or in part, using a voice recognition dictation system. Departure Departure Impression: Primary Impression: Fall Additional Impression: Contusion of hip, right Disposition: 01 HOME, SELF-CARE Condition: STABLE Referrals: Marquita AGUILERA MD (PCP) follow up in 1-2 weeks Patient Instructions: Contusion, Scmo-[id number], Fall Prevention and Home Safety Additional Instructions: You were evaluated after falling. Your Ct of the head and cervical spine are negative. Your xrays of the right hip, knee and leg are negative for any fractures. Please continue to follow up with your doctor. Scripts Potassium Chloride (POTASSIUM CHLORIDE) 10 Meq Tab.sr.24h 10 MEQ PO TID, #30 TAB.SR Prov: MARCK MA APRN 12/05/18 Problem Qualifiers Primary Impression: Fall Encounter type: initial encounter Qualified Codes: W19.XXXA - Unspecified fall, initial encounter Additional Impression: Contusion of hip, right Encounter type: initial encounter Qualified Codes: S70.01XA - Contusion of right hip, initial encounter MARCK MA APRN Dec 05, 2018 13:04
[2018-12-05 13:50] VITALS: BP 159/63
== END 2018-12-05 13:58 | disposition home or self-care (01) ==
LOC: ER 09:56
DX: S70.01XA Contusion of right hip, initial encounter (principal); R51 Headache; Z86.73 Personal history of transient ischemic attack (TIA), and cerebral infarction without residual deficits; K21.9 Gastro-esophageal reflux disease without esophagitis; Z88.1 Allergy status to other antibiotic agents; W18.39XA Other fall on same level, initial encounter; Y93.89 Activity, other specified; Y92.89 Other specified places as the place of occurrence of the external cause; Y99.8 Other external cause status
CPT/HCPCS: 70450; 72125; 73502; 73562; 73590; 81001; 99284

== ENCOUNTER 2019-01-22 09:51 | Emergency (ER) | payer OTHER ==
[~2019-01-22] VITALS: Ht 165.1 cm; Wt 64.4 kg
[2019-01-22] MEDS ORDERED: diazePAM 5 MG TABLET PO ONE (11:15)
[2019-01-22 11:44] LABS: BASO % 1 % (0-3); EOS % 2 % (0-3); HEMATOCRIT 41.9 % (36.0-47.0); HEMOGLOBIN 13.8 g/dL (12.0-15.5); LYMPH % 32 % (24-48); MEAN CORPUSCULAR HEMOGLOBIN 30 pg (25-35); MEAN CORPUSCULAR HGB CONC 33 g/dL (31-37); MEAN CORPUSCULAR VOLUME 92 fL (79-100); MONO # 0.2 x10^3/uL (0.0-1.1); MONO % 8 % (0-9); NEUT # 1.7 x10^3uL (1.8-7.7); NEUT % 58 % (31-73); PLATELET COUNT 195 x10^3/uL (140-400); RED BLOOD COUNT 4.56 x10^6/uL (3.50-5.40); RED CELL DISTRIBUTION WIDTH 14.4 % (11.5-14.5)
[2019-01-22 12:01] LABS: CALCIUM 10.6 mg/dL (8.5-10.1); CREATININE 0.8 mg/dL (0.6-1.0); GFR 88.8; POTASSIUM 3.5 mmol/L (3.5-5.1)
[2019-01-22 12:06] LABS: ALBUMIN 4.2 g/dL (3.4-5.0); ALBUMIN/GLOBULIN RATIO 0.9 (1.0-1.7); MAGNESIUM 2.1 mg/dL (1.8-2.4); TOTAL BILIRUBIN 0.2 mg/dL (0.2-1.0); TOTAL PROTEIN 9.1 g/dL (6.4-8.2)
[2019-01-22] MEDS ORDERED: DIAZ5TAB PO (12:16)
--- NOTE | 2019-01-22 12:16 | PHYS DOC ---
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 The patient has a history of stroke. She has spasticity to that leg. She also has aphasia and is a very poor historian. She is able to nod yes or no. (DIVYA ARANGO APRN) Review of Systems Review of Systems Constitutional: Denies fever or chills [] Respiratory: Denies cough or shortness of breath [] Cardiovascular: No additional information not addressed in HPI [] GI: Denies abdominal pain, nausea, vomiting, bloody stools or diarrhea [] : Denies dysuria or hematuria [] Musculoskeletal: See history of present illness Integument: Denies rash or skin lesions [] Neurologic: Denies headache, focal weakness or sensory changes [] Endocrine: Denies polyuria or polydipsia [] All other systems were reviewed and found to be within normal limits, except as documented in this note. (DIVYA ARANGO APRN) Current Medications Current Medications Current Medications Medications (Trade) Dose Ordered Sig/Becky Start Time Stop Time Status Last Admin Dose Admin Diazepam (Valium) 5 mg 1X ONCE 01/22/19 11:15 01/22/19 11:16 DC 01/22/19 11:25 5 MG (WILFRED RACHEL MD) Allergies Allergies Allergies Coded Allergies Type Severity Reaction Last Updated Verified ceftriaxone Allergy Intermediate SWELLING,HIVES 10/16/17 Yes (WILFRED RACHEL MD) Physical Exam Physical Exam Constitutional: Well developed, well nourished, no acute distress, non-toxic appearance. [] Cardiovascular:Heart rate regular rhythm, no murmur [] Lungs & Thorax: Bilateral breath sounds clear to auscultation [] Abdomen: Bowel sounds normal, soft, no tenderness, no masses, no pulsatile masses. [] Skin: Warm, dry, no erythema, no rash. [] Back: No tenderness, no CVA tenderness. [] Extremities: tenderness with spasticity to the right thigh and knee the right great toe is drawn up, no cyanosis, no clubbing, ROM decreased due to stroke, no edema. [] Neurologic: Alert and oriented X 3, normal motor function, normal sensory function, no focal deficits noted. [] Psychologic: Affect normal, judgement normal, mood normal. [] (DIVYA ARANGO APRN) Current Patient Data Vital Signs Vital Signs Date Time Temp Pulse Resp B/P (MAP) Pulse Ox O2 Delivery O2 Flow Rate FiO2 01/22/19 12:55 73 20 156/66 (96) 95 Room Air 01/22/19 10:25 97.3 97.3 (WILFRED RACHEL MD) Lab Values Laboratory Tests Test 01/22/19 11:35 White Blood Count 3.0 x10^3/uL (4.0-11.0) L Red Blood Count 4.56 x10^6/uL (3.50-5.40) Hemoglobin 13.8 g/dL (12.0-15.5) Hematocrit 41.9 % (36.0-47.0) Mean Corpuscular Volume 92 fL (79-100) Mean Corpuscular Hemoglobin 30 pg (25-35) Mean Corpuscular Hemoglobin Concent 33 g/dL (31-37) Red Cell Distribution Width 14.4 % (11.5-14.5) Platelet Count 195 x10^3/uL (140-400) Neutrophils (%) (Auto) 58 % (31-73) Lymphocytes (%) (Auto) 32 % (24-48) Monocytes (%) (Auto) 8 % (0-9) Eosinophils (%) (Auto) 2 % (0-3) Basophils (%) (Auto) 1 % (0-3) Neutrophils # (Auto) 1.7 x10^3uL (1.8-7.7) L Lymphocytes # (Auto) 1.0 x10^3/uL (1.0-4.8) Monocytes # (Auto) 0.2 x10^3/uL (0.0-1.1) Eosinophils # (Auto) 0.0 x10^3/uL (0.0-0.7) Basophils # (Auto) 0.0 x10^3/uL (0.0-0.2) Sodium Level 143 mmol/L (136-145) Potassium Level 3.5 mmol/L (3.5-5.1) Chloride Level 103 mmol/L (98-107) Carbon Dioxide Level 30 mmol/L (21-32) Anion Gap 10 (6-14) Blood Urea Nitrogen 23 mg/dL (7-20) H Creatinine 0.8 mg/dL (0.6-1.0) Estimated GFR (Cockcroft-Gault) 88.8 BUN/Creatinine Ratio 29 (6-20) H Glucose Level 83 mg/dL (70-99) Calcium Level 10.6 mg/dL (8.5-10.1) H Magnesium Level 2.1 mg/dL (1.8-2.4) Total Bilirubin 0.2 mg/dL (0.2-1.0) Aspartate Amino Transferase (AST) 28 U/L (15-37) Alanine Aminotransferase (ALT) 31 U/L (14-59) Alkaline Phosphatase 133 U/L (46-116) H Total Protein 9.1 g/dL (6.4-8.2) H Albumin 4.2 g/dL (3.4-5.0) Albumin/Globulin Ratio 0.9 (1.0-1.7) L Laboratory Tests 01/22/19 11:35 Laboratory Tests 01/22/19 11:35 (WILFRED RACHEL MD) EKG EKG [] (DIVYA ARANGO APRN) Radiology/Procedures Radiology/Procedures [] (DIVYA ARANGO APRN) Course & Med Decision Making Course & Med Decision Making Pertinent Labs and Imaging studies reviewed. (See chart for details) The patient was given Valium for her spasming. (DIVYA ARANGO APRN) Course & Med Decision Making Staff Physician Addendum: I was working in the ER during the course of this patient's visit. I was available for consultation as needed, but I was not directly involved in the care of this patient. (WILFRED RACHEL MD) Dragon Disclaimer Dragon Disclaimer This electronic medical record was generated, in whole or in part, using a voice recognition dictation system. (DIVYA ARANGO APRN) Departure Departure Impression: Primary Impression: Leg pain Additional Impression: Muscle spasm Disposition: HOME, SELF-CARE Condition: STABLE Referrals: Marquita AGUILERA MD (PCP) Patient Instructions: Musculoskeletal Pain, Spasticity Additional Instructions: Take the medication as directed to relieve the spasming of your muscles. Follow- up with your regular doctor for further treatment of this condition. Scripts Diazepam (VALIUM) 5 Mg Tablet 5 MG PO DAILY for muscle spasm, #5 TAB Prov: DIVYA ARANGO APRN 01/22/19 Problem Qualifiers DIVYA ARANGO APRN January 22, 2019 12:16 WILFRED RACHEL MD January 23, 2019 18:40
[2019-01-22 12:55] VITALS: BP 156/66
== END 2019-01-22 12:59 | disposition home or self-care (01) ==
LOC: ER 09:51
DX: M62.838 Other muscle spasm (principal); M79.604 Pain in right leg; K21.9 Gastro-esophageal reflux disease without esophagitis; Z86.73 Personal history of transient ischemic attack (TIA), and cerebral infarction without residual deficits; Z88.1 Allergy status to other antibiotic agents
CPT/HCPCS: 36415; 80053; 83735; 85025; 99284

== ENCOUNTER 2019-02-16 04:55 | Emergency (ER) | payer MEDICAID, OTHER ==
[~2019-02-16] VITALS: Ht 157.5 cm; Wt 64.4 kg
[~2019-02-16 04:55] MED LIST changes: +DIAZ5TAB PO
[2019-02-16] MEDS ORDERED: ORPH100T PO (05:01)
--- NOTE | 2019-02-16 05:01 | PHYS DOC ---
Past Medical History Past Medical History: Cancer, CVA, GERD, Seizure, Other Additional Past Medical Histor: CVA IN 2005 WITH RIGHT SIDE HEMIPARESIS AND MOSTLY NON-VERBAL Past Surgical History: Other Additional Past Surgical Histo: ABDOMINAL VERTICAL SURGICAL SCAR, rt masectomy Smoking: Quit Greater Than 1 Year Alcohol Use: None Drug Use: None Adult General Chief Complaint Chief Complaint: MUSCLE SPASM/CRAMP HPI HPI 58-year-old female presents via EMS with report of acute on chronic right upper thigh "muscle spasm ". Patient reports started today. Patient reports she has these often. Reports she will go to the emergency department if symptoms become "too bad ". Patient has prior history of CVA with right-sided deficit. Reports this is typically where her spasticity is noted. Reports she usually needs a muscle relaxer and then is discharged home. Denies known trauma. Denies fever or chills. Denies rash.. Review of Systems Review of Systems Constitutional: Denies fever or chills Eyes: Denies redness or eye pain HENT: Denies nasal congestion or sore throat Respiratory: Denies cough or shortness of breath Cardiovascular: Denies chest pain or palpitations GI: Denies abdominal pain, nausea, or vomiting : Denies dysuria or hematuria Musculoskeletal: Reports right thigh muscle spasms Integument: Denies rash or skin lesions Neurologic: Denies headache, focal weakness or sensory changes Complete systems were reviewed and found to be within normal limits, except as documented in this note. Current Medications Current Medications Current Medications Medications (Trade) Dose Ordered Sig/Becky Start Time Stop Time Status Last Admin Dose Admin Orphenadrine Citrate (Norflex) 60 mg 1X ONCE 02/16/19 05:15 02/16/19 05:19 DC 02/16/19 05:29 60 MG Allergies Allergies Allergies Coded Allergies Type Severity Reaction Last Updated Verified ceftriaxone Allergy Intermediate SWELLING,HIVES 10/16/17 Yes Physical Exam Physical Exam Constitutional: Well developed, well nourished, no acute distress, non-toxic appearance HENT: Normocephalic, atraumatic, oropharynx moist Eyes: PERRL, conjunctiva normal, no discharge Neck: Normal range of motion, no tenderness, supple Cardiovascular: Heart rate normal, regular rhythm Lungs & Thorax: Bilateral breath sounds clear to auscultation, no wheezing Abdomen: Soft, no tenderness Skin: Warm, dry, no erythema, no rash Extremities: Right upper extremity and lower extremity and fractures noted, some spasticity noted to right upper thigh, no deformity Neurologic: Alert and oriented at baseline, chronic right sided hemiplegia noted Psychologic: Affect normal, mood normal Current Patient Data Vital Signs Vital Signs Date Time Temp Pulse Resp B/P (MAP) Pulse Ox O2 Delivery O2 Flow Rate FiO2 02/16/19 05:05 50 141/68 (92) 99 Room Air 02/16/19 04:55 98.3 16 98.3 EKG EKG [] Radiology/Procedures Radiology/Procedures [] Course & Med Decision Making Course & Med Decision Making Patient presents with history of present illness consistent for acute on chronic muscle spasticity to right upper thigh. History of hemiplegia secondary to stroke. Denies known trauma. Reports this is very consistent with her prior episodes. Symptomatic treatment provided with IM Norflex. Patient stable for discharge with outpatient follow-up with PCP. Discussed findings and plan with patient, who acknowledges understanding and agreement. Dragon Disclaimer Dragon Disclaimer This electronic medical record was generated, in whole or in part, using a voice recognition dictation system. Departure Departure Impression: Primary Impression: Muscle spasm of right leg Disposition: HOME, SELF-CARE Condition: STABLE Referrals: Marquita AGUILERA MD (PCP) Patient Instructions: Spasticity Scripts Orphenadrine Citrate (ORPHENADRINE CITRATE) 100 Mg Tablet.er 100 MG PO BID PRN for MUSCLE SPASMS, #14 Prov: GLENN OAKLEY DO 02/16/19 GLENN OAKLEY DO Feb 16, 2019 05:01
[2019-02-16 05:05] VITALS: BP 141/68
[2019-02-16] MEDS ORDERED: ORPHENADRINE CITRATE 60 MG/2 ML VIAL. IM ONE (05:15)
== END 2019-02-16 05:58 | disposition home or self-care (01) ==
LOC: ER 04:55
DX: M62.838 Other muscle spasm (principal); K21.9 Gastro-esophageal reflux disease without esophagitis; Z86.73 Personal history of transient ischemic attack (TIA), and cerebral infarction without residual deficits; Z87.891 Personal history of nicotine dependence; Z88.1 Allergy status to other antibiotic agents
CPT/HCPCS: 96372; 99284; J2360

== ENCOUNTER 2019-04-02 12:31 | Emergency (ER) | payer MEDICAID ==
[~2019-04-02] VITALS: Ht 157.5 cm; Wt 54.4 kg
[~2019-04-02 12:31] MED LIST changes: +ORPH100T PO
[2019-04-02] MEDS ORDERED: diazePAM 5 MG TABLET PO ONE (13:00)
--- NOTE | 2019-04-02 13:26 | RAD ---
EXAM: Right knee, 3 views. HISTORY: Fall. Spasms. COMPARISON: 12/05/2018. FINDINGS: 3 views of the right knee are obtained. There is stable suspected patella conner. There is no fracture or dislocation. There is no joint effusion. IMPRESSION: 1. No acute osseous finding. 2. Stable suspected patella conner. Electronically signed by: Mary Hernandez MD (04/02/2019 1:23 PM) [facility]
--- NOTE | 2019-04-02 14:09 | PHYS DOC ---
Past Medical History Past Medical History: Cancer, CVA, GERD, Seizure, Other Additional Past Medical Histor: CVA IN 2005 WITH RIGHT SIDE HEMIPARESIS AND MOSTLY NON-VERBAL Past Surgical History: Other Additional Past Surgical Histo: ABDOMINAL VERTICAL SURGICAL SCAR, rt masectomy Alcohol Use: None Drug Use: None Adult General Chief Complaint Chief Complaint: LOWER EXT PAIN [facility] HPI Patient is a 59 year old female with a history of CVA, right-sided weakness and aphasia presents to the ED complaining of right knee pain. EMS reports the patient is at her baseline. Patient is able to communicate with yes or no answers. Patient reports that she is out of her Valium and is having spasms in her legs. States that she injured her right knee as well. Rates her pain as 4 out of 10. Patient has been seen here in the past for similar symptoms of muscle spasms. Denies dizziness, weakness, chest pain, shortness of breath, fever, h eadache, neck pain, chills or nausea/vomiting. Review of Systems Review of Systems Constitutional: Denies fever or chills [] Eyes: Denies change in visual acuity, redness, or eye pain [] HENT: Denies nasal congestion or sore throat [] Respiratory: Denies cough or shortness of breath [] Cardiovascular: No additional information not addressed in HPI [] GI: Denies abdominal pain, nausea, vomiting, bloody stools or diarrhea [] : Denies dysuria or hematuria [] Musculoskeletal: Complains of knee pain. Denies back pain. Integument: Denies rash or skin lesions [] Neurologic: Denies headache, focal weakness or sensory changes [] All other systems were reviewed and found to be within normal limits, except as documented in this note. Current Medications Current Medications Current Medications Medications (Trade) Dose Ordered Sig/Becky Start Time Stop Time Status Last Admin Dose Admin Diazepam (Valium) 5 mg 1X ONCE 04/02/19 13:00 04/02/19 13:01 DC 04/02/19 13:38 5 MG Allergies Allergies Allergies Coded Allergies Type Severity Reaction Last Updated Verified ceftriaxone Allergy Intermediate SWELLING,HIVES 10/16/17 Yes Physical Exam Physical Exam Constitutional: Well developed, well nourished, no acute distress, non-toxic appearance. [] HENT: Normocephalic, atraumatic Neck: Normal range of motion, no tenderness, supple, no stridor. [] Cardiovascular:Heart rate regular rhythm, no murmur [] Lungs & Thorax: Bilateral breath sounds clear to auscultation [] Abdomen: Bowel sounds normal, soft, no tenderness, no masses, no pulsatile masses. [] Skin: Warm, dry, no erythema, no rash. [] Back: No bony tenderness, full range of motion. NV intact. No overlying skin changes. no CVA tenderness. [] Extremities: Mild right medial knee tenderness. brace in placed to right arm and right lower leg. no cyanosis, no clubbing, ROM intact, no edema. [] Neurologic: Alert and oriented X 3, normal motor function, normal sensory fun ction (Patient is at baseline) [] Psychologic: Affect normal, judgement normal, mood normal. [] Current Patient Data Vital Signs Vital Signs Date Time Temp Pulse Resp B/P (MAP) Pulse Ox O2 Delivery O2 Flow Rate FiO2 04/02/19 12:31 98.2 65 16 156/70 (98) 95 Room Air 98.2 EKG EKG [] Radiology/Procedures Radiology/Procedures []PROCEDURE: KNEE RIGHT 3V EXAM: Right knee, 3 views. HISTORY: Fall. Spasms. COMPARISON: 12/05/2018. FINDINGS: 3 views of the right knee are obtained. There is stable suspected patella conner. There is no fracture or dislocation. There is no joint effusion. IMPRESSION: 1. No acute osseous finding. 2. Stable suspected patella conner. Course & Med Decision Making Course & Med Decision Making Pertinent Labs and Imaging studies reviewed. (See chart for details) Discussed imaging findings with patient. Patient at baseline. Patient well- appearing. Patients symptoms improved with valium given in the ED. We'll prescribe a short course of Valium outpatient until patient can get into see her PCP for a refill. Discussed the importance of follow-up and reasons to return to the ED. Patient understands and agrees with plan. Viancaon Disclaimer Dontae Disclaimer This electronic medical record was generated, in whole or in part, using a voice recognition dictation system. Departure Departure Impression: Primary Impression: Knee pain Additional Impression: Muscle spasm Disposition: 01 HOME, SELF-CARE Condition: IMPROVED Referrals: Marquita AGUILERA MD (PCP) MARLEY ONEIL II, MD Patient Instructions: Knee Pain, Muscle Cramps Scripts Diazepam (VALIUM) 5 Mg Tablet 5 MG PO BID, #12 TAB Prov: BERYL SANTIZO 04/02/19 Problem Qualifiers BERYL SANTIZO Apr 02, 2019 14:09
[2019-04-02] MEDS ORDERED: DIAZ5TAB PO (14:22)
[2019-04-02 15:00] VITALS: BP 132/78
--- NOTE | 2019-04-02 15:00 | NUR ---
Pt placed on bed kasper per pt request. Call light within reach.
== END 2019-04-02 15:05 | disposition home or self-care (01) ==
LOC: ER 12:31
DX: M25.561 Pain in right knee (principal); M62.838 Other muscle spasm; R47.01 Aphasia; K21.9 Gastro-esophageal reflux disease without esophagitis; Z86.73 Personal history of transient ischemic attack (TIA), and cerebral infarction without residual deficits; Z88.1 Allergy status to other antibiotic agents
CPT/HCPCS: 73562; 99284

== ENCOUNTER 2019-04-16 10:45 | Emergency (ER) | payer MEDICAID ==
[~2019-04-16] VITALS: Ht 165.1 cm; Wt 54.4 kg
--- NOTE | 2019-04-16 11:23 | PHYS DOC ---
Past Medical History Past Medical History: Cancer, CVA, GERD, Seizure, Other Additional Past Medical Histor: CVA IN 2005 WITH RIGHT SIDE HEMIPARESIS AND MOSTLY NON-VERBAL Past Surgical History: Other Additional Past Surgical Histo: ABDOMINAL VERTICAL SURGICAL SCAR, rt masectomy Alcohol Use: None Drug Use: Benzodiazepine Adult General Chief Complaint Chief Complaint: OTHER COMPLAINTS HPI HPI Patient is a 59-year-old female, who arrives in the emergency department via EMS. According to EMS, the patient has a history of a prior stroke, over 10 years ago, and right-sided hemiparesis. She lives with her son, who has reportedly been trying to get her into a intermediate for quite a while, but has been unable to do so, so EMS was called for a "wellness check", to have the p atient hospitalized to facilitate a more definitive care. The patient denies any complaints, but is unable to verbalize any meaningful history due to underlying aphasia. Review of Systems Review of Systems Unable to obtain, secondary to patient condition Current Medications Current Medications Current Medications Medications (Trade) Dose Ordered Sig/Becky Start Time Stop Time Status Last Admin Dose Admin Potassium Chloride (Klor-Con) 40 meq 1X ONCE 04/16/19 13:30 04/16/19 13:31 DC 04/16/19 13:20 40 MEQ Allergies Allergies Allergies Coded Allergies Type Severity Reaction Last Updated Verified ceftriaxone Allergy Intermediate SWELLING,HIVES 10/16/17 Yes Physical Exam Physical Exam PHYSICAL EXAM: CONSTITUTIONAL: Well developed, well nourished HEAD: normocephalic, atraumatic EENT: PERRL, EOMI. Conjunctivae normal color, sclerae non-icteric; moist mucous membranes. NECK: Supple, non-tender; no meningismus. LUNGS: Lungs CTA, breathing even and unlabored. Normal air movement. HEART: Regular rate and rhythm, no murmur CHEST: No deformity; non-tender ABDOMEN: The abdomen is soft, and non-tender, no masses or bruits. EXTREM: Normal ROM; no deformity, no calf tenderness. Normal pulses palpable in all extremities. There is no pedal edema. SKIN: There is a faint scattered rash on the right upper extremity, possibly related to insect bites, no other abnormality no other rash; no diaphoresis NEURO: Alert; the patient is aphasic, able to make some sounds and answer yes or no occasionally, but not reliably, there is a mild right-sided facial droop, with right-sided hemiparesis. BACK: No CVA TTP. Current Patient Data Vital Signs Vital Signs Date Time Temp Pulse Resp B/P (MAP) Pulse Ox O2 Delivery O2 Flow Rate FiO2 04/16/19 10:45 98.0 59 18 151/67 (95) 98 Room Air 98.0 Lab Values Laboratory Tests Test 04/16/19 12:05 04/16/19 12:16 White Blood Count 2.0 x10^3/uL (4.0-11.0) L Red Blood Count 4.63 x10^6/uL (3.50-5.40) Hemoglobin 14.1 g/dL (12.0-15.5) Hematocrit 41.7 % (36.0-47.0) Mean Corpuscular Volume 90 fL (79-100) Mean Corpuscular Hemoglobin 31 pg (25-35) Mean Corpuscular Hemoglobin Concent 34 g/dL (31-37) Red Cell Distribution Width 12.6 % (11.5-14.5) Platelet Count 160 x10^3/uL (140-400) Neutrophils (%) (Auto) 44 % (31-73) Lymphocytes (%) (Auto) 48 % (24-48) Monocytes (%) (Auto) 6 % (0-9) Eosinophils (%) (Auto) 1 % (0-3) Basophils (%) (Auto) 1 % (0-3) Neutrophils # (Auto) 0.9 x10^3/uL (1.8-7.7) L Lymphocytes # (Auto) 1.0 x10^3/uL (1.0-4.8) Monocytes # (Auto) 0.1 x10^3/uL (0.0-1.1) Eosinophils # (Auto) 0.0 x10^3/uL (0.0-0.7) Basophils # (Auto) 0.0 x10^3/uL (0.0-0.2) Segmented Neutrophils % 44 % (35-66) Lymphocytes % 46 % (24-48) Monocytes % 8 % (0-10) Eosinophils % 2 % (0-5) Platelet Estimate Adequate (ADEQUATE) Sodium Level 140 mmol/L (136-145) Potassium Level 2.8 mmol/L (3.5-5.1) *L Chloride Level 100 mmol/L (98-107) Carbon Dioxide Level 31 mmol/L (21-32) Anion Gap 9 (6-14) Blood Urea Nitrogen 16 mg/dL (7-20) Creatinine 0.7 mg/dL (0.6-1.0) Estimated GFR (Cockcroft-Gault) 103.3 BUN/Creatinine Ratio 23 (6-20) H Glucose Level 70 mg/dL (70-99) Calcium Level 9.9 mg/dL (8.5-10.1) Magnesium Level 1.8 mg/dL (1.8-2.4) Total Bilirubin 0.2 mg/dL (0.2-1.0) Aspartate Amino Transferase (AST) 24 U/L (15-37) Alanine Aminotransferase (ALT) 24 U/L (14-59) Alkaline Phosphatase 131 U/L (46-116) H Troponin I Quantitative < 0.017 ng/mL (0.000-0.055) Total Protein 8.4 g/dL (6.4-8.2) H Albumin 3.9 g/dL (3.4-5.0) Albumin/Globulin Ratio 0.9 (1.0-1.7) L Carbamazepine (Tegretol) Level 7.3 mcg/mL (4.0-12.0) Carbamazepine Last Dose Date 04/16/19 Carbamazepine Last Dose Time 1112 Urine Color Yellow Urine Clarity Clear Urine pH 7.0 Urine Specific [place] 1.010 Urine Protein Negative mg/dL (NEG-TRACE) Urine Glucose (UA) Negative mg/dL (NEG) Urine Ketones (Stick) Negative mg/dL (NEG) Urine Blood Negative (NEG) Urine Nitrite Negative (NEG) Urine Bilirubin Negative (NEG) Urine Urobilinogen Dipstick 0.2 mg/dL (0.2 mg/dL) Urine Leukocyte Esterase Negative (NEG) Urine RBC 0 /HPF (0-2) Urine WBC 0 /HPF (0-4) Urine Bacteria 0 /HPF (0-FEW) Laboratory Tests 04/16/19 12:05 Laboratory Tests 04/16/19 12:05 EKG EKG []Normal sinus rhythm a rate of 54 beats for minute, normal axis, normal intervals, nonspecific ST/T changes are present. Radiology/Procedures Radiology/Procedures [] Course & Med Decision Making Course & Med Decision Making Pertinent Labs and Imaging studies reviewed. (See chart for details) []1:50 PM: The patient's condition remains stable. The patient's son and caregiver was contacted by the patient's nurse, he states that the patient herself called 911, and apparently does this frequently. She seems to do this when she cannot get what she wants. The patient did not have any medical complaints or change in mental status according to her son, and he states that he is in fact able to care for home, and will be at home if she is brought back to her home via EMS. I have also contacted the patient's PCP to discuss the case with him as well. The patient's hypokalemia might be due to her HCTZ use and I will discuss this with her PCP as well. Dragon Disclaimer Dragon Disclaimer This electronic medical record was generated, in whole or in part, using a voice recognition dictation system. Departure Departure Impression: Primary Impression: Hypokalemia Additional Impression: Aphasia Disposition: 01 HOME, SELF-CARE Condition: STABLE Referrals: Marquita AGUILERA MD (PCP) Scripts Potassium Chloride (K-Tab ER) 20 Meq Tablet.er 20 MEQ PO DAILY for 14 Days, #14 TAB.SR Prov: KIRSTEN MCCLELLAN MD 04/16/19 Problem Qualifiers IKRSTEN MCCLELLAN MD Apr 16, 2019 11:23
[2019-04-16 12:16] LABS: BASO % 1 % (0-3); EOS % 1 % (0-3); HEMATOCRIT 41.7 % (36.0-47.0); HEMOGLOBIN 14.1 g/dL (12.0-15.5); LYMPH % 48 % (24-48); MEAN CORPUSCULAR HEMOGLOBIN 31 pg (25-35); MEAN CORPUSCULAR HGB CONC 34 g/dL (31-37); MEAN CORPUSCULAR VOLUME 90 fL (79-100); MONO # 0.1 x10^3/uL (0.0-1.1); MONO % 6 % (0-9); NEUT # 0.9 x10^3/uL (1.8-7.7); NEUT % 44 % (31-73); PLATELET COUNT 160 x10^3/uL (140-400); RED BLOOD COUNT 4.63 x10^6/uL (3.50-5.40); RED CELL DISTRIBUTION WIDTH 12.6 % (11.5-14.5)
[2019-04-16 12:29] LABS: BILIRUBIN,URINE NEGATIVE (NEG); CLARITY,URINE CLEAR; COLOR,URINE YELLOW; NITRITE,URINE NEGATIVE (NEG); PROTEIN,URINE NEGATIVE (NEG-TRACE); UROBILINOGEN,URINE 0.2 mg/dL (0.2 mg/dL)
[2019-04-16 12:31] LABS: CARBAM 7.3 mcg/mL (4.0-12.0)
[2019-04-16 12:32] LABS: ALBUMIN 3.9 g/dL (3.4-5.0); ALBUMIN/GLOBULIN RATIO 0.9 (1.0-1.7); CALCIUM 9.9 mg/dL (8.5-10.1); CREATININE 0.7 mg/dL (0.6-1.0); GFR 103.3; TOTAL BILIRUBIN 0.2 mg/dL (0.2-1.0); TOTAL PROTEIN 8.4 g/dL (6.4-8.2)
[2019-04-16 12:35] LABS: POTASSIUM 2.8 mmol/L (3.5-5.1)
[2019-04-16 12:41] LABS: BACTERIA,URINE 0 /HPF (0-FEW); RBC,URINE 0 /HPF (0-2); WBC,URINE 0 /HPF (0-4)
[2019-04-16 13:01] LABS: % EOS 2 % (0-5); % LYMPHS 46 % (24-48); % MONOS 8 % (0-10); % SEGS 44 % (35-66); PLT ESTIMATE ADEQUATE (ADEQUATE)
[2019-04-16] MEDS ORDERED: POTASSIUM CHLORIDE 20 MEQ TABLET.ER. PO ONE (13:30)
[2019-04-16] MEDS ORDERED: POTA20TA84 PO (13:51)
[2019-04-16 15:46] VITALS: BP 159/94
--- NOTE | 2019-04-16 15:53 | EKG ---
[facility] [address] [place] [address] Test Date: 2019-04-16 Test Time: 11:16:15 Pat Name: LEXII HAYDEN Department: Room: Gender: F Toys Inspector: : 1960 Requested By: KIRSTEN MCCLELLAN Order Number: [id number] Reading MD: Measurements Intervals [place] Rate: 54 P: 44 VT: 212 QRS: 25 QRSD: 76 T: 73 QT: 428 QTc: 412 Interpretive Statements SINUS RHYTHM LEFT ATRIAL ABNORMALITY ST & T ABNORMALITY, CONSIDER HIGH LATERAL ISCHEMIA OR LEFT VENTRICULAR STRAIN ABNORMAL ECG RI6.01 No previous ECG available for comparison
[2019-04-16] MEDS ORDERED: LIDOCAINE 1% Multi-Dose 20 ML VIAL. ONE (17:54)
== END 2019-04-16 14:35 | disposition home or self-care (01) ==
LOC: ER 10:45
DX: E87.6 Hypokalemia (principal); R47.01 Aphasia; K21.9 Gastro-esophageal reflux disease without esophagitis; Z86.73 Personal history of transient ischemic attack (TIA), and cerebral infarction without residual deficits; Z88.1 Allergy status to other antibiotic agents
CPT/HCPCS: 36415; 80053; 80156; 81001; 83735; 84484; 85007; 85025; 93005; 99285-25

== ENCOUNTER 2019-04-25 12:44 | Emergency (ER) | payer MEDICAID ==
[~2019-04-25] VITALS: Ht 167.6 cm; Wt 54.4 kg
[~2019-04-25 12:44] MED LIST changes: +POTA20TA84 PO
[2019-04-25 12:45] VITALS: BP 142/73
[2019-04-25] MEDS ORDERED: HYDR-3164 PO (13:47)
--- NOTE | 2019-04-25 13:47 | PHYS DOC ---
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 Patient answers yes or no to questions or points at things when asked. When asked what patient is here for she points to her left jaw. When I asked if she is having dental pain she states yes it opens her mouth and points to the lower left back tooth. Patient rates her pain a 10 out of 10. Patient states she has no pain medicine at home and has not taken anything. Review of Systems Review of Systems Constitutional: Denies fever or chills [] HENT: Denies nasal congestion or sore throat. Dental pain[] All other systems were reviewed and found to be within normal limits, except as documented in this note. Allergies Allergies Allergies Coded Allergies Type Severity Reaction Last Updated Verified ceftriaxone Allergy Intermediate SWELLING,HIVES 10/16/17 Yes Physical Exam Physical Exam Constitutional: Well developed, well nourished, no acute distress, non-toxic appearance. [] HENT: Normocephalic, atraumatic, bilateral external ears normal, oropharynx moist, no oral exudates, nose normal. Dental caries to almost every tooth in her mouth. ] Cardiovascular:Heart rate regular rhythm, no murmur [] Lungs & Thorax: Bilateral breath sounds clear to auscultation [] Abdomen: Bowel sounds normal, soft, no tenderness, no masses, no pulsatile masses. [] Skin: Warm, dry, no erythema, no rash. [] Neurologic: Alert and oriented X 3, normal motor function, normal sensory function, no focal deficits noted. [] Psychologic: Affect normal, judgement normal, mood normal. [] Current Patient Data Vital Signs Vital Signs Date Time Temp Pulse Resp B/P (MAP) Pulse Ox O2 Delivery O2 Flow Rate FiO2 04/25/19 12:45 98.2 65 16 142/73 (96) 100 Room Air 98.2 EKG EKG [] Radiology/Procedures Radiology/Procedures [] Course & Med Decision Making Course & Med Decision Making Patient is a 59 year old Female who presents with history of a stroke and has expressive exposure. Patient answers yes or no to questions or points at things when asked. When asked what patient is here for she points to her left jaw. When I asked if she is having dental pain she states yes it opens her mouth and points to the lower left back tooth. Patient rates her pain a 10 out of 10. Patient states she has no pain medicine at home and has not taken anything. Patient has many dental caries. The gum line is not red or swollen. There is no facial swelling. Patient does not have a fever. She states no to nausea, vomiting, chest pain, shortness of air, fevers, abdominal pain. PERRLA. Patient states no to having a dentist. Patient is ambulatory. She is given dental resources and pain medications. Dragon Disclaimer Dragon Disclaimer This electronic medical record was generated, in whole or in part, using a voice recognition dictation system. Departure Departure Impression: Primary Impression: Pain, dental Disposition: 01 HOME, SELF-CARE Condition: STABLE Referrals: Marquita AGUILERA MD (PCP) Patient Instructions: Dental Pain Additional Instructions: Follow-up with a dentist as soon as possible. Take medications as prescribed. Scripts Hydrocodone/Apap 5-325 (NORCO 5-325 TABLET) 1 Each Tablet 1 TAB PO PRN Q6HRS PRN for PAIN, #10 TAB 0 Refills Prov: MARLO HARDY APRN 04/25/19 MARLO HARDY APRN Apr 25, 2019 13:47
== END 2019-04-25 14:19 | disposition home or self-care (01) ==
LOC: ER 12:44
DX: K02.9 Dental caries, unspecified (principal); K21.9 Gastro-esophageal reflux disease without esophagitis; Z86.73 Personal history of transient ischemic attack (TIA), and cerebral infarction without residual deficits; Z88.1 Allergy status to other antibiotic agents
CPT/HCPCS: 99284

== ENCOUNTER 2019-06-21 10:59 | Emergency (ER) | payer MEDICAID ==
[~2019-06-21] VITALS: Ht 162.6 cm; Wt 54.4 kg
[~2019-06-21 10:59] MED LIST changes: -EZET10TA18 PO; +EZET10TA20 PO
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
[2019-06-21 14:05] VITALS: BP 141/71
== END 2019-06-21 14:34 | disposition home or self-care (01) ==
LOC: ER 10:59
DX: R47.01 Aphasia (principal); R53.1 Weakness; Z74.2 Need for assistance at home and no other household member able to render care; K21.9 Gastro-esophageal reflux disease without esophagitis; Z86.73 Personal history of transient ischemic attack (TIA), and cerebral infarction without residual deficits; Z88.1 Allergy status to other antibiotic agents
CPT/HCPCS: 99283

== ENCOUNTER 2019-07-25 14:02 | Emergency (ER) | payer MEDICAID ==
[~2019-07-25] VITALS: Ht 162.6 cm; Wt 54.4 kg
[~2019-07-25 14:02] MED LIST changes: +SIMV10TA15 PO; -SIMV10TA3 PO
[2019-07-25 14:09] VITALS: BP 142/68
--- NOTE | 2019-07-25 14:17 | PHYS DOC ---
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 It's unknown how long patient has had this pain but the son called EMS for patient reporting the pain has been days since this morning. Patient response to the question she fell down, denies hitting her head on the ground. Denies any neck pain or back pain. Review of Systems Review of Systems Constitutional: Denies fever or chills [] Eyes: Denies change in visual acuity, redness, or eye pain [] HENT: Denies nasal congestion or sore throat [] Respiratory: Denies cough or shortness of breath [] Cardiovascular: No additional information not addressed in HPI [] GI: Denies abdominal pain, nausea, vomiting, bloody stools or diarrhea [] : Denies dysuria or hematuria Musculoskeletal-reports right knee pain, right wrist pain, right elbow pain Integument: Denies rash or skin lesions [] Neurologic: Denies headache, focal weakness or sensory changes [] All other systems were reviewed and found to be within normal limits, except as documented in this note. Allergies Allergies Allergies Coded Allergies Type Severity Reaction Last Updated Verified ceftriaxone Allergy Intermediate SWELLING,HIVES 10/16/17 Yes Physical Exam Physical Exam Constitutional: Well developed, well nourished, no acute distress, non-toxic appearance. [] HENT: Normocephalic, atraumatic, bilateral external ears normal, oropharynx moist, no oral exudates, nose normal. [] Eyes: PERRLA, EOMI, conjunctiva normal, no discharge. [] Neck: Normal range of motion, no tenderness, supple, no stridor. [] Cardiovascular:Heart rate regular rhythm, no murmur [] Lungs & Thorax: Bilateral breath sounds clear to auscultation [] Abdomen: Bowel sounds normal, soft, no tenderness, no masses, no pulsatile masses. [] Skin: Warm, dry, no erythema, no rash. [] Back: No tenderness, no CVA tenderness. [] Extremities: Right upper extremity is contracted, patient is in a brace for RUE and RLE, no new obvious deformities noted. Range of motion is limited due to previous history of CVA and contractures. Neurologic: Alert and oriented X 2 exam hard due to aphasia, normal motor function, normal sensory function, no focal deficits noted. [] Psychologic: Affect normal, judgement normal, mood normal. [] Current Patient Data Vital Signs Vital Signs Date Time Temp Pulse Resp B/P (MAP) Pulse Ox O2 Delivery O2 Flow Rate FiO2 07/25/19 14:09 98.4 85 16 142/68 (92) 96 Room Air 98.4 EKG EKG [] Radiology/Procedures Radiology/Procedures []PROCEDURE: ELBOW RIGHT 3V EXAM: 1. ELBOW RIGHT 3V, 2. WRIST 2V RIGHT. HISTORY: Right elbow and wrist pain. Fall. COMPARISON: None. FINDINGS: There are projectional limitations at the elbow. Osteopenia is moderate to severe. No fractures are identified. There is no clear joint effusion. 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 There are rotational and positional limitations at the wrist. Osteopenia appears severe. No displaced fractures are identified. Alignment appears maintained. First carpometacarpal osteoarthritis appears moderate. IMPRESSION: 1. Projectional limitations. No displaced fracture. Electronically signed by: Eliazar Andrew MD (07/25/2019 2:48 PM) [facility] DICTATED and SIGNED BY: STEPHANY ANDREW MD DATE: 07/25/19 2427 PROCEDURE: KNEE RIGHT 3V EXAM: Right knee 3 views. HISTORY: Right knee pain. COMPARISON: 04/02/2019. FINDINGS: Osteopenia is moderate to severe. No fractures are identified. Joint spaces and alignment are maintained. There is no joint effusion. IMPRESSION: 1. Relatively severe osteopenia. No fracture or joint effusion. Electronically signed by: Eliazar Andrew MD (07/25/2019 2:47 PM) [facility] DICTATED and SIGNED BY: STEPHANY ANDREW MD DATE: 07/25/19 9728 PROCEDURE: WRIST 2V RIGHT EXAM: 1. ELBOW RIGHT 3V, 2. WRIST 2V RIGHT. HISTORY: Right elbow and wrist pain. Fall. COMPARISON: None. FINDINGS: There are projectional limitations at the elbow. Osteopenia is moderate to severe. No fractures are identified. There is no clear joint effusion. 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 There are rotational and positional limitations at the wrist. Osteopenia appears severe. No displaced fractures are identified. Alignment appears maintained. First carpometacarpal osteoarthritis appears moderate. IMPRESSION: 1. Projectional limitations. No displaced fracture. Electronically signed by: Eliazar Andrew MD (07/25/2019 2:48 PM) [facility] DICTATED and SIGNED BY: STEPHANY ANDREW MD DATE: 07/25/19 1448 Course & Med Decision Making Course & Med Decision Making Pertinent Labs and Imaging studies reviewed. (See chart for details) This is a 59-year-old female patient well known to this ED presenting today with right wrist pain, right elbow pain and right knee pain, symptoms began today. Patient believes she fell. No loss of consciousness. Denies hitting her head. Right wrist, right elbow, right knee x-rays interpreted by radiologist are negative. Patient was discharged to home. Follow-up with her own PCP. Dragon Disclaimer Dragon Disclaimer This electronic medical record was generated, in whole or in part, using a voice recognition dictation system. Departure Departure Impression: Primary Impression: Right knee pain Additional Impressions: Fall from standing Right elbow pain Right wrist pain Disposition: 01 HOME, SELF-CARE Condition: STABLE Referrals: Marquita AGUILERA MD (PCP) Follow-up next week Patient Instructions: Fall Prevention and Home Safety, Knee Pain, [id number], Wrist Pain, [id number] Additional Instructions: You were seen for right elbow pain, right wrist pain and right knee pain, your x-rays are negative for any acute findings. Follow-up with your doctor in 1-2. Weeks. Problem Qualifiers Primary Impression: Right knee pain Chronicity: acute Qualified Codes: M25.561 - Pain in right knee Additional Impressions: Fall from standing Encounter type: initial encounter Qualified Codes: W19.XXXA - Unspecified fall, initial encounter MARCK MA NOTEMAN Jul 25, 2019 14:17
--- NOTE | 2019-07-25 14:50 | RAD ---
EXAM: Right knee 3 views. HISTORY: Right knee pain. COMPARISON: 04/02/2019. FINDINGS: Osteopenia is moderate to severe. No fractures are identified. Joint spaces and alignment are maintained. There is no joint effusion. IMPRESSION: 1. Relatively severe osteopenia. No fracture or joint effusion. Electronically signed by: Eliazar Andrew MD (07/25/2019 2:47 PM) [facility]
--- NOTE | 2019-07-25 14:51 | RAD ---
EXAM: 1. ELBOW RIGHT 3V, 2. WRIST 2V RIGHT. HISTORY: Right elbow and wrist pain. Fall. COMPARISON: None. FINDINGS: There are projectional limitations at the elbow. Osteopenia is moderate to severe. No fractures are identified. There is no clear joint effusion. 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 There are rotational and positional limitations at the wrist. Osteopenia appears severe. No displaced fractures are identified. Alignment appears maintained. First carpometacarpal osteoarthritis appears moderate. IMPRESSION: 1. Projectional limitations. No displaced fracture. Electronically signed by: Eliazar Andrew MD (07/25/2019 2:48 PM) [facility]
== END 2019-07-25 15:21 | disposition home or self-care (01) ==
LOC: ER 14:02
DX: M25.521 Pain in right elbow (principal); M25.531 Pain in right wrist; M25.561 Pain in right knee; G89.11 Acute pain due to trauma; K21.9 Gastro-esophageal reflux disease without esophagitis; Z86.73 Personal history of transient ischemic attack (TIA), and cerebral infarction without residual deficits; Z88.1 Allergy status to other antibiotic agents; W18.39XA Other fall on same level, initial encounter; Y93.89 Activity, other specified; Y92.89 Other specified places as the place of occurrence of the external cause; Y99.8 Other external cause status
CPT/HCPCS: 73080; 73100; 73562; 99284

== ENCOUNTER 2019-12-27 13:11 | Emergency (ER) | payer MEDICAID ==
[~2019-12-27] VITALS: Ht 162.6 cm; Wt 60.0 kg
[~2019-12-27 13:11] MED LIST changes: -OMEP20CA10 PO; +OMEP20CA16 PO
--- NOTE | 2019-12-27 13:45 | EKG ---
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
--- NOTE | 2019-12-27 13:49 | RAD ---
Single AP view of the chest. Comparison: None. Indication: Rib pain Findings: Lungs appear hyperexpanded. The heart is enlarged but stable. There is no pneumothorax or effusion. No air space or interstitial disease. Impression: 1. No acute cardiopulmonary process. 2. No angulated or displaced rib fractures identified, however, there is high clinical suspicion recommend correlation with dedicated rib series. Electronically signed by: Benson Flannery MD (12/27/2019 1:47 PM) [id number]
--- NOTE | 2019-12-27 14:17 | PHYS DOC ---
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 Patient has a history of a stroke with being unable to speak and right-sided hemiparesis and right arm contracture. When patient asked if she has pain she s ays yes and points to her lower abdomen. She also points to her head. She denies chest pain, shortness of breath, vomiting, nausea, vision changes, dizzy. Son left the hospital and did not come back. Son states that the patient actually can ambulate pretty well and will leave the home. Patient is refusing an IV and to be straight cathed for urine. All patient can say to me is yes or no and point to things she is trying to tell me. She does follow my commands. Review of Systems: Review of Systems: GI: abdominal pain, denies nausea, vomiting, bloody stools or diarrhea. [] Neurologic: headache, denies focal weakness or sensory changes. [] Heart Score: Risk Factors: Risk Factors: DM, Current or recent (<one month) smoker, HTN, HLP, family history of CAD, obesity. Risk Scores: Score 0 - 3: 2.5% MACE over next 6 weeks - Discharge Home Score 4 - 6: 20.3% MACE over next 6 weeks - Admit for Clinical Observation Score 7 - 10: 72.7% MACE over next 6 weeks - Early Invasive Strategies Allergies: Allergies: Allergies Coded Allergies Type Severity Reaction Last Updated Verified ceftriaxone Allergy Intermediate SWELLING,HIVES 10/16/17 Yes Physical Exam: PE: Constitutional: Well developed, well nourished, no acute distress, non-toxic appearance. [] HENT: Normocephalic, atraumatic, bilateral external ears normal, oropharynx moist, no oral exudates, nose normal. [] Eyes: PERRLA, EOMI, conjunctiva normal, no discharge. [] Neck: Normal range of motion, no tenderness, supple, no stridor. [] Cardiovascular:Heart rate regular rhythm, no murmur [] Lungs & Thorax: Bilateral breath sounds clear to auscultation [] Abdomen: Bowel sounds normal, soft, Low mid tenderness, no masses, no pulsatile masses. [] Skin: Warm, dry, no erythema, no rash. [] Back: No tenderness, no CVA tenderness. [] Extremities: No tenderness, no cyanosis, no clubbing, ROM intact, no edema. [] Neurologic: Alert and oriented X 3, normal motor function, normal sensory fu nction, no focal deficits noted. [] Psychologic: Affect normal, judgement normal, mood normal. [] Current Patient Data: Vital Signs: Vital Signs Date Time Temp Pulse Resp B/P (MAP) Pulse Ox O2 Delivery O2 Flow Rate FiO2 12/27/19 13:25 98.6 67 16 154/60 (91) 100 Room Air 98.6 EKG: EK and read by Dr Puga. No STEMI and sinus Rhythm.[] Radiology/Procedures: Radiology/Procedures: [] Impression: [facility] [address] [place], [place] [id number] IMAGING REPORT Signed PATIENT: LEXII HAYDEN ACCOUNT: [id number] : 1960 LOCATION: ER AGE: 59 SEX: F EXAM STATUS: REG ER ORD. PHYSICIAN: MARLO HARDY APRN REASON: PAIN PROCEDURE: CT ABDOMEN PELVIS WO CONTRAST EXAM: CT Head without IV contrast INDICATION: Pain TECHNIQUE: Multi-detector row CT images were obtained of the head without the use of IV contrast. All CT scans performed at this facility utilize dose optimization techniques as appropriate to the exam, including the following: Automated exposure control and adjustment of the mA and/or KV according to patient size (this includes techniques or standardized protocols for targeted exams where dose is indication/reason for exam). COMPARISON: Noncontrast head CT 12/05/2018 FINDINGS: BRAIN PARENCHYMA: Superimposed on generalized parenchymal volume loss is encephalomalacia in the left frontotemporal region consistent with a chronic left MCA territory infarct. There is extensive white matter low density compatible with chronic ischemic microvascular change. No acute intracranial hemorrhage. No mass lesion or mass effect. VENTRICLES & EXTRA-AXIAL SPACES: Ventricles are enlarged in proportion to the degree of parenchymal volume loss present, including expected dilation of the left lateral ventricle. Basilar cisterns are patent. No pathologic extra-axial fluid collection or mass. ORBITS: Orbital contents are unremarkable. SINUSES: Visualized paranasal sinuses and mastoid air cells are clear. OSSEOUS & SOFT TISSUES: Calvarium and skull base are intact. IMPRESSION: No acute intracranial pathology. EXAM: CT Abdomen and Pelvis without IV contrast INDICATION: Pain TECHNIQUE: Multi-detector row CT images were acquired from the lung bases through the abdomen and pelvis without the use of IV contrast. Sagittal and coronal images were acquired from the transaxial data. All CT scans performed at this facility utilize dose optimization techniques as appropriate to the exam, including the following: Automated exposure control and adjustment of the mA and/or KV according to patient size (this includes techniques or standardized protocols for targeted exams where dose is indication/reason for exam). ORAL CONTRAST: None COMPARISON: None FINDINGS: The absence of IV contrast limits evaluation of soft tissue pathology. LOWER CHEST: Unremarkable LIVER: Unremarkable BILIARY SYSTEM: Gallbladder is unremarkable. Bile ducts are not dilated. PANCREAS: Unremarkable SPLEEN: Unremarkable ADRENALS: Unremarkable KIDNEYS & URETERS: Unremarkable BLADDER: Unremarkable REPRODUCTIVE ORGANS: Unremarkable GASTROINTESTINAL: No evidence of bowel obstruction, perforation or acute inflammation. There is formed stool visualized in the large bowel, compatible constipation in the appropriate clinical context. The appendix is not well seen but there are no findings suggesting acute appendicitis. MESENTERY/PERITONEUM/RETROPERITONEUM: Unremarkable VASCULAR: Unremarkable LYMPH NODES: No adenopathy OSSEOUS & SOFT TISSUES: There is some asymmetric atrophy of the right psoas muscle, noted in the setting of a right total hip arthroplasty. No acute or aggressive appearing osseous lesions. IMPRESSION: Stool-filled large bowel. Correlate for constipation. Otherwise no acute findings on noncontrast abdomen pelvis CT. Electronically signed by: Yari Stoddard MD (12/27/2019 2:47 PM) [id number] DICTATED and SIGNED BY: YARI STODDARD MD DATE: 12/27/19 1447 [facility] [address] [place] [address] IMAGING REPORT Signed PATIENT: LEXII HAYDEN ACCOUNT: [id number] : 1960 LOCATION: ER AGE: 59 SEX: F EXAM STATUS: REG ER ORD. PHYSICIAN: MARLO HARDY APRN REASON: rib pain PROCEDURE: PORTABLE CHEST 1V Single AP view of the chest. Comparison: None. Indication: Rib pain Findings: Lungs appear hyperexpanded. The heart is enlarged but stable. There is no pneumothorax or effusion. No air space or interstitial disease. Impression: 1. No acute cardiopulmonary process. 2. No angulated or displaced rib fractures identified, however, there is high clinical suspicion recommend correlation with dedicated rib series. Electronically signed by: Benson Flannery MD (12/27/2019 1:47 PM) [id number] DICTATED and SIGNED BY: BENSON FLANNERY MD DATE: 12/27/191346 Course & Med Decision Making: Course & Med Decision Making Pertinent Labs and Imaging studies reviewed. (See chart for details) Patient was poked many times with needles and nurse states that patient will pull away and nurse was almost stuck with a needle. Patient is now refusing IV and to be stuck again. When I asked the patient to please let us get an IV she shook her heaand stated d no and waved her hand at me and pointed to the door and acted as though she was trying to leave. Nurse states that she did get the blood needed. Patient refuses a urinary cath to get urine. Patient has a history of high cholesterol, stroke, hypertension, GERD, falls, hypokalemia, seizures, right mastectomy. No extremity swelling. Patient son states that she is acting normal for her and she is at normal baseline. Vital signs within normal limits. Abdomen is soft with patient states that when I push on her lower mid abdomen she stated yes to pain. Laboratory called and stated that the blood that the nurse was able to get from the patient is clotted off. Patient is refusing to have any blood drawn. Chest x-ray shows no acute findings. CT head shows no acute findings. CT abdomen and pelvis show constipation. Since patient is refusing laboratory and to give urine she is educated that we could be missing something and full work up can not be done and she states she still refuses any blood work or a urine specimen. [] Dragon Disclaimer: Dragon Disclaimer: This electronic medical record was generated, in whole or in part, using a voice recognition dictation system. Departure Departure Impression: Primary Impression: Constipation Qualified Codes: K59.00 - Constipation, unspecified Disposition: HOME, SELF-CARE Condition: STABLE Referrals: Marquita AGUILERA MD (PCP) Patient Instructions: Constipation, Adult Additional Instructions: Follow up with primary care provider. Drink plenty of fluids. Take medication as prescribed. Scripts Magnesium Citrate (MAGNESIUM CITRATE) 296 Ml Solution 296 ML PO ONCE, #296 ML Prov: MARLO HARDY APRN 12/27/19 MARLO HARDY APRN Dec 27, 2019 14:17
--- NOTE | 2019-12-27 14:49 | RAD ---
EXAM: CT Head without IV contrast INDICATION: Pain TECHNIQUE: Multi-detector row CT images were obtained of the head without the use of IV contrast. All CT scans performed at this facility utilize dose optimization techniques as appropriate to the exam, including the following: Automated exposure control and adjustment of the mA and/or KV according to patient size (this includes techniques or standardized protocols for targeted exams where dose is indication/reason for exam). COMPARISON: Noncontrast head CT 12/05/2018 FINDINGS: BRAIN PARENCHYMA: Superimposed on generalized parenchymal volume loss is encephalomalacia in the left frontotemporal region consistent with a chronic left MCA territory infarct. There is extensive white matter low density compatible with chronic ischemic microvascular change. No acute intracranial hemorrhage. No mass lesion or mass effect. VENTRICLES & EXTRA-AXIAL SPACES: Ventricles are enlarged in proportion to the degree of parenchymal volume loss present, including expected dilation of the left lateral ventricle. Basilar cisterns are patent. No pathologic extra-axial fluid collection or mass. ORBITS: Orbital contents are unremarkable. SINUSES: Visualized paranasal sinuses and mastoid air cells are clear. OSSEOUS & SOFT TISSUES: Calvarium and skull base are intact. IMPRESSION: No acute intracranial pathology. EXAM: CT Abdomen and Pelvis without IV contrast INDICATION: Pain TECHNIQUE: Multi-detector row CT images were acquired from the lung bases through the abdomen and pelvis without the use of IV contrast. Sagittal and coronal images were acquired from the transaxial data. All CT scans performed at this facility utilize dose optimization techniques as appropriate to the exam, including the following: Automated exposure control and adjustment of the mA and/or KV according to patient size (this includes techniques or standardized protocols for targeted exams where dose is indication/reason for exam). ORAL CONTRAST: None COMPARISON: None FINDINGS: The absence of IV contrast limits evaluation of soft tissue pathology. LOWER CHEST: Unremarkable LIVER: Unremarkable BILIARY SYSTEM: Gallbladder is unremarkable. Bile ducts are not dilated. PANCREAS: Unremarkable SPLEEN: Unremarkable ADRENALS: Unremarkable KIDNEYS & URETERS: Unremarkable BLADDER: Unremarkable REPRODUCTIVE ORGANS: Unremarkable GASTROINTESTINAL: No evidence of bowel obstruction, perforation or acute inflammation. There is formed stool visualized in the large bowel, compatible constipation in the appropriate clinical context. The appendix is not well seen but there are no findings suggesting acute appendicitis. MESENTERY/PERITONEUM/RETROPERITONEUM: Unremarkable VASCULAR: Unremarkable LYMPH NODES: No adenopathy OSSEOUS & SOFT TISSUES: There is some asymmetric atrophy of the right psoas muscle, noted in the setting of a right total hip arthroplasty. No acute or aggressive appearing osseous lesions. IMPRESSION: Stool-filled large bowel. Correlate for constipation. Otherwise no acute findings on noncontrast abdomen pelvis CT. Electronically signed by: Katalina Stoddard MD (12/27/2019 2:47 PM) [id number]
[2019-12-27] MEDS ORDERED: MAGN296S68 PO (15:15)
== END 2019-12-27 16:26 | disposition home or self-care (01) ==
LOC: ER 13:11
DX: K59.00 Constipation, unspecified (principal); R51 Headache; K21.9 Gastro-esophageal reflux disease without esophagitis; Z87.891 Personal history of nicotine dependence; Z86.73 Personal history of transient ischemic attack (TIA), and cerebral infarction without residual deficits
CPT/HCPCS: 36415; 70450; 71045; 74176; 93005; 99285-25

== ENCOUNTER 2020-01-10 09:41 | Emergency (ER) | payer MEDICAID ==
[~2020-01-10] VITALS: Ht 165.1 cm; Wt 59.0 kg
[~2020-01-10 09:41] MED LIST changes: -DICL100G18 TP; +DICL100G54 TP; +MAGN296S68 PO
[2020-01-10 11:09] LABS: BASO % 1 % (0-3); EOS # 0.1 x10^3/uL (0.0-0.7); EOS % 4 % (0-3); LYMPH # 0.9 x10^3/uL (1.0-4.8); LYMPH % 39 % (24-48); MEAN CORPUSCULAR HEMOGLOBIN 29 pg (25-35); MEAN CORPUSCULAR HGB CONC 32 g/dL (31-37); MEAN CORPUSCULAR VOLUME 90 fL (79-100); MONO # 0.2 x10^3/uL (0.0-1.1); MONO % 10 % (0-9); NEUT # 1.1 x10^3/uL (1.8-7.7); NEUT % 47 % (31-73); PLATELET COUNT 153 x10^3/uL (140-400); RED CELL DISTRIBUTION WIDTH 13.4 % (11.5-14.5); WHITE BLOOD COUNT 2.4 x10^3/uL (4.0-11.0)
--- NOTE | 2020-01-10 11:11 | RAD ---
EXAM: CHEST 1 VIEW History: Chest pain COMPARISON: 12/27/2019 TECHNIQUE: Single portable radiograph of the chest FINDINGS: The cardiac silhouette is unremarkable. The lungs are clear bilaterally. The costophrenic sulci are clear and well demarcated. IMPRESSION: No radiographic evidence of an acute cardiopulmonary process. Electronically signed by: Fidel Booth MD (01/10/2020 11:08 AM) [id number]
--- NOTE | 2020-01-10 11:11 | RAD ---
PROCEDURE: FOOT RIGHT 3V STUDY DATE: 01/10/2020 CLINICAL INDICATION / HISTORY: Pain. TECHNIQUE: AP, lateral and oblique views of the right foot. COMPARISON: None FINDINGS: No fracture or dislocation is identified. The bone density is diffusely demineralized.. The joint space widths are maintained, and there are no erosions to suggest an inflammatory arthropathy. There is diffuse soft tissue swelling in the dorsum of the forefoot extending about the ankle.. IMPRESSION: Osteopenia and edema in the soft tissues of the right foot. No acute osseous abnormality noted. Electronically signed by: Katalina Stoddard MD (01/10/2020 11:09 AM) [id number]
--- NOTE | 2020-01-10 11:19 | EKG ---
[facility] [address] [place] [address] Test Date: 2020-01-10 Test Time: 09:52:18 Pat Name: LEXII HAYDEN Department: Room: Gender: F [employer]: : 1960 Requested By: BRETT WILKERSON Order Number: [id number] Reading MD: Carlito Bello MD Measurements Intervals [place] Rate: 66 P: 133 WV: 200 QRS: 54 QRSD: 74 T: 3 QT: 372 QTc: 392 Interpretive Statements SR NON-SPECIFIC ST/T CHANGES Electronically Signed On 01-10-2020 12:08:39 CDT by Carlito Bello MD
[2020-01-10 11:20] LABS: CALCIUM 9.7 mg/dL (8.5-10.1); CREATININE 0.8 mg/dL (0.6-1.0); GFR 88.5; POTASSIUM 4.2 mmol/L (3.5-5.1)
[2020-01-10 11:25] LABS: ALBUMIN 3.7 g/dL (3.4-5.0); ALBUMIN/GLOBULIN RATIO 0.9 (1.0-1.7); TOTAL BILIRUBIN 0.1 mg/dL (0.2-1.0); TOTAL PROTEIN 7.8 g/dL (6.4-8.2)
--- NOTE | 2020-01-10 12:48 | PHYS DOC ---
Past Medical History Past Medical History: Cancer, CVA, GERD, Seizure, Other Additional Past Medical Histor: CVA IN 2004 WITH RIGHT SIDE HEMIPARESIS AND MOSTLY NON-VERBAL Past Surgical History: Other Additional Past Surgical Histo: ABDOMINAL VERTICAL SURGICAL SCAR, rt masectomy Smoking Status: Never Smoker Alcohol Use: None Drug Use: None, Benzodiazepine Adult General Chief Complaint Chief Complaint: COUGH HPI HPI Patient is a 59 year old -Stateless female well-known to this facility with history of CVA in 2004 with residual right-sided leisa-weakness and expressive aphasia who presents with chronic right foot/leg swelling and reported chest pain prior to ED arrival. History is obtained from the patient's son who called. No reported fever cough, sore throat, chills, nausea vomiting or sweats. Vital signs are stable. History is limited due to patient's speech deficits. [] Review of Systems Review of Systems ROS as per HPI. Limited due to speech impairment. Allergies Allergies Allergies Coded Allergies Type Severity Reaction Last Updated Verified ceftriaxone Allergy Intermediate SWELLING,HIVES 10/16/17 Yes Physical Exam Physical Exam Constitutional: Well developed, well nourished, no acute distress. [] HENT: Normocephalic, atraumatic, bilateral external ears normal, oropharynx moist, nose normal. [] Eyes: PERRLA, EOMI, conjunctiva normal. [] Neck: Normal range of motion, no tenderness. [] Cardiovascular:Heart rate regular rhythm, no murmur. [] Lungs & Thorax: Bilateral breath sounds clear. [] Abdomen: Bowel sounds normal, soft, no tenderness. [] Skin: Warm, dry, no rash. [] Back: No tenderness. [] Extremities: Right lower extremity, no deformity, erythema, bruising. Right foot/leg swelling. [] Neurologic: Alert, garbled speech, R upper and lower extremity weakness. [] Current Patient Data Vital Signs Vital Signs Date Time Temp Pulse Resp B/P (MAP) Pulse Ox O2 Delivery O2 Flow Rate FiO2 01/10/20 14:00 78 19 129/52 (77) 97 Room Air 01/10/20 09:41 97.7 97.7 Lab Values Laboratory Tests Test 01/10/20 10:50 01/10/20 12:15 White Blood Count 2.4 x10^3/uL (4.0-11.0) L Red Blood Count 4.10 x10^6/uL (3.50-5.40) Hemoglobin 12.0 g/dL (12.0-15.5) Hematocrit 37.0 % (36.0-47.0) Mean Corpuscular Volume 90 fL (79-100) Mean Corpuscular Hemoglobin 29 pg (25-35) Mean Corpuscular Hemoglobin Concent 32 g/dL (31-37) Red Cell Distribution Width 13.4 % (11.5-14.5) Platelet Count 153 x10^3/uL (140-400) Neutrophils (%) (Auto) 47 % (31-73) Lymphocytes (%) (Auto) 39 % (24-48) Monocytes (%) (Auto) 10 % (0-9) H Eosinophils (%) (Auto) 4 % (0-3) H Basophils (%) (Auto) 1 % (0-3) Neutrophils # (Auto) 1.1 x10^3/uL (1.8-7.7) L Lymphocytes # (Auto) 0.9 x10^3/uL (1.0-4.8) L Monocytes # (Auto) 0.2 x10^3/uL (0.0-1.1) Eosinophils # (Auto) 0.1 x10^3/uL (0.0-0.7) Basophils # (Auto) 0.0 x10^3/uL (0.0-0.2) D-Dimer (Dolores) 0.45 ug/mlFEU (0.00-0.50) Sodium Level 138 mmol/L (136-145) Potassium Level 4.2 mmol/L (3.5-5.1) Chloride Level 101 mmol/L (98-107) Carbon Dioxide Level 26 mmol/L (21-32) Anion Gap 11 (6-14) Blood Urea Nitrogen 36 mg/dL (7-20) H Creatinine 0.8 mg/dL (0.6-1.0) Estimated GFR (Cockcroft-Gault) 88.5 BUN/Creatinine Ratio 45 (6-20) H Glucose Level 80 mg/dL (70-99) Calcium Level 9.7 mg/dL (8.5-10.1) Total Bilirubin 0.1 mg/dL (0.2-1.0) L Aspartate Amino Transferase (AST) 28 U/L (15-37) Alanine Aminotransferase (ALT) 33 U/L (14-59) Alkaline Phosphatase 110 U/L (46-116) Troponin I Quantitative < 0.017 ng/mL (0.000-0.055) < 0.017 ng/mL (0.000-0.055) Total Protein 7.8 g/dL (6.4-8.2) Albumin 3.7 g/dL (3.4-5.0) Albumin/Globulin Ratio 0.9 (1.0-1.7) L Lipase 190 U/L (73-393) Laboratory Tests 01/10/20 10:50 Laboratory Tests 01/10/20 10:50 EKG EKG [EKG: Reviewed] Interpretation Time: Chest x-ray: Reviewed Radiology/Procedures Radiology/Procedures [XR R foot: CXR: ] Course & Med Decision Making Course & Med Decision Making Pertinent Labs and Imaging studies reviewed. (See chart for details) [Patient without acute findings on exam. Suspect patient's pain is longstanding. Recommend PCP follow-up for further management.] Dragon Disclaimer Dragon Disclaimer This electronic medical record was generated, in whole or in part, using a voice recognition dictation system. Departure Departure Impression: Primary Impression: Right leg swelling Additional Impression: Chest pain Disposition: 01 HOME, SELF-CARE Condition: STABLE Patient Instructions: Chest Pain (Nonspecific)-Brief, Leg Cramps Additional Instructions: Please continue current home therapy and increase fluid intake. Take Tylenol as needed for pain and follow up with your PCP for further managment. Problem Qualifiers BRETT WILKERSON DO January 10, 2020 12:48
[2020-01-10 14:00] VITALS: BP 129/52
== END 2020-01-10 15:03 | disposition home or self-care (01) ==
LOC: ER 09:41
DX: R22.41 Localized swelling, mass and lump, right lower limb (principal); R07.89 Other chest pain; K21.9 Gastro-esophageal reflux disease without esophagitis; Z86.73 Personal history of transient ischemic attack (TIA), and cerebral infarction without residual deficits; Z88.1 Allergy status to other antibiotic agents
CPT/HCPCS: 36415; 71045; 73630; 80053; 83690; 84484; 85025; 85379; 93005; 99285-25

== ENCOUNTER 2020-03-11 15:17 | Emergency (ER) | payer MEDICAID ==
[~2020-03-11] VITALS: Ht 152.4 cm; Wt 67.0 kg
--- NOTE | 2020-03-11 15:38 | PHYS DOC ---
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 She is mostly nonverbal but able to communicate by saying yes or no, she states no pain. She is unsure how long it has been swollen. Patient lives with her son, states able to ambulate through her home as usual. She denies any chest pain or shortness of air. Reports no recent travel, prolonged immobilization or surgical procedures. Reports no history of PEs or DVTs. Review of Systems: Review of Systems: Constitutional: Denies fever or chills. [] Eyes: Denies change in visual acuity. [] HENT: Denies nasal congestion or sore throat. [] Respiratory: Denies cough or shortness of breath. [] Cardiovascular: Denies chest pain, . [] GI: Denies abdominal pain, nausea, vomiting, bloody stools or diarrhea. [] : Denies dysuria. [] Musculoskeletal: Denies back pain or joint pain, reports right lower leg swelling. [] Integument: Denies rash. [] Neurologic: Denies headache, focal weakness or sensory changes. [] Endocrine: Denies polyuria or polydipsia. [] Lymphatic: Denies swollen glands. [] Psychiatric: Denies depression or anxiety. [] Heart Score: Risk Factors: Risk Factors: DM, Current or recent (<one month) smoker, HTN, HLP, family history of CAD, obesity. Risk Scores: Score 0 - 3: 2.5% MACE over next 6 weeks - Discharge Home Score 4 - 6: 20.3% MACE over next 6 weeks - Admit for Clinical Observation Score 7 - 10: 72.7% MACE over next 6 weeks - Early Invasive Strategies Allergies: Allergies: Allergies Coded Allergies Type Severity Reaction Last Updated Verified ceftriaxone Allergy Intermediate SWELLING,HIVES 10/16/17 Yes Physical Exam: PE: Constitutional: Well developed, well nourished, no acute distress, non-toxic appearance. [] HENT: Normocephalic, atraumatic, bilateral external ears normal, oropharynx moist, no oral exudates, nose normal. [] Eyes: PERRLA, EOMI, conjunctiva normal, no discharge. [] Cardiovascular:Heart rate regular rhythm, no murmur [] Lungs & Thorax: Bilateral breath sounds clear to auscultation [] Skin: Warm, dry, no erythema, no rash. [] Back: No tenderness, no CVA tenderness. [] Extremities: Right calf edematous with anterior erythema, no tenderness to palpation, right > left. [] Neurologic: Alert, communicates by saying yes and no, normal state of communication per records [] Current Patient Data: Labs: Laboratory Tests Test 03/11/20 15:57 White Blood Count 3.0 x10^3/uL Red Blood Count 3.72 x10^6/uL Hemoglobin 11.2 g/dL Hematocrit 33.9 % Mean Corpuscular Volume 91 fL Mean Corpuscular Hemoglobin 30 pg Mean Corpuscular Hemoglobin Concent 33 g/dL Red Cell Distribution Width 13.9 % Platelet Count 172 x10^3/uL Neutrophils (%) (Auto) 62 % Lymphocytes (%) (Auto) 29 % Monocytes (%) (Auto) 7 % Eosinophils (%) (Auto) 2 % Basophils (%) (Auto) 1 % Neutrophils # (Auto) 1.9 x10^3/uL Lymphocytes # (Auto) 0.9 x10^3/uL Monocytes # (Auto) 0.2 x10^3/uL Eosinophils # (Auto) 0.1 x10^3/uL Basophils # (Auto) 0.0 x10^3/uL Sodium Level 144 mmol/L Potassium Level 3.5 mmol/L Chloride Level 107 mmol/L Carbon Dioxide Level 28 mmol/L Anion Gap 9 Blood Urea Nitrogen 43 mg/dL Creatinine 1.1 mg/dL Estimated GFR (Cockcroft-Gault) 61.1 BUN/Creatinine Ratio 39 Glucose Level 101 mg/dL Calcium Level 9.1 mg/dL Total Bilirubin 0.2 mg/dL Aspartate Amino Transf (AST/SGOT) 25 U/L Alanine Aminotransferase (ALT/SGPT) 25 U/L Alkaline Phosphatase 113 U/L Total Protein 8.1 g/dL Albumin 3.5 g/dL Albumin/Globulin Ratio 0.8 Vital Signs: Vital Signs Date Time Temp Pulse Resp B/P (MAP) Pulse Ox O2 Delivery O2 Flow Rate FiO2 03/11/20 15:19 98.1 65 20 134/60 (84) 100 Room Air 98.1 EKG: EKG: [] Radiology/Procedures: Radiology/Procedures: [] Impression: ROCEDURE: VENOUS LOWER EXTREMITY RIGHT Right lower extremity venous doppler ultrasound History: Right leg swelling Comparison: None Findings: Multiple grayscale, color, and duplex spectral analysis sonographic images were acquired of the right lower extremity veins to evaluate for the presence of DVT. There is normal phasicity. Normal compression, color-flow, and augmentation is demonstrated from the right common femoral to the popliteal veins. There is normal color flow of the proximal greater saphenous and profunda femoris veins. There is normal color flow of segments of the calf veins. Impression: 1. There is no evidence of deep venous thrombosis from the right common femoral to the popliteal veins. Electronically signed by: Alex Alejandra MD (03/11/2020 4:21 PM) [facility] Course & Med Decision Making: Course & Med Decision Making Pertinent Labs and Imaging studies reviewed. (See chart for details) [Labs within normal limits, DVT study negative to the right lower extremity, patient is started on antibiotics for possible cellulitis to the right lower extremity, she was offered admission but declines, shakes her head yes that she wants to go home and shakes her head no that she does not want to remain in the hospital to be admitted. Recommend close follow-up with primary care doctor within the next 24 to 48 hours. Return to emergency room for new or worsening symptoms. Vital signs are stable, she is afebrile, nontoxic in appearance. Dragon Disclaimer: Dragon Disclaimer: This electronic medical record was generated, in whole or in part, using a voice recognition dictation system. Departure Departure Impression: Primary Impression: Right leg swelling Additional Impression: Cellulitis Disposition: 01 HOME, SELF-CARE Condition: STABLE Referrals: Marquita AGUILERA MD (PCP) Patient Instructions: Cellulitis, [id number] Scripts Doxycycline Hyclate (DOXYCYCLINE HYCLATE) 100 Mg Capsule 1 CAP PO BID, #20 CAP Prov: TRESA LUGO TELEGRAPHIC TYPEWRITER INSTALLER 03/11/20 Justicifation of Admission Dx: Justifications for Admission: Justification of Admission Dx: Comment: (pt declined admission) Cellulitis: Cellulitis TRESA LUGO TELEGRAPHIC TYPEWRITER INSTALLER Mar 11, 2020 15:38
[2020-03-11 16:11] LABS: BASO % 1 % (0-3); EOS # 0.1 x10^3/uL (0.0-0.7); EOS % 2 % (0-3); HEMATOCRIT 33.9 % (36.0-47.0); HEMOGLOBIN 11.2 g/dL (12.0-15.5); LYMPH # 0.9 x10^3/uL (1.0-4.8); LYMPH % 29 % (24-48); MEAN CORPUSCULAR HEMOGLOBIN 30 pg (25-35); MEAN CORPUSCULAR HGB CONC 33 g/dL (31-37); MEAN CORPUSCULAR VOLUME 91 fL (79-100); MONO # 0.2 x10^3/uL (0.0-1.1); MONO % 7 % (0-9); NEUT # 1.9 x10^3/uL (1.8-7.7); NEUT % 62 % (31-73); PLATELET COUNT 172 x10^3/uL (140-400); RED BLOOD COUNT 3.72 x10^6/uL (3.50-5.40); RED CELL DISTRIBUTION WIDTH 13.9 % (11.5-14.5)
[2020-03-11 16:13] LABS: CALCIUM 9.1 mg/dL (8.5-10.1); CREATININE 1.1 mg/dL (0.6-1.0); GFR 61.1; POTASSIUM 3.5 mmol/L (3.5-5.1)
[2020-03-11 16:19] LABS: ALBUMIN 3.5 g/dL (3.4-5.0); ALBUMIN/GLOBULIN RATIO 0.8 (1.0-1.7); TOTAL BILIRUBIN 0.2 mg/dL (0.2-1.0); TOTAL PROTEIN 8.1 g/dL (6.4-8.2)
--- NOTE | 2020-03-11 16:24 | RAD ---
Right lower extremity venous doppler ultrasound History: Right leg swelling Comparison: None Findings: Multiple grayscale, color, and duplex spectral analysis sonographic images were acquired of the right lower extremity veins to evaluate for the presence of DVT. There is normal phasicity. Normal compression, color-flow, and augmentation is demonstrated from the right common femoral to the popliteal veins. There is normal color flow of the proximal greater saphenous and profunda femoris veins. There is normal color flow of segments of the calf veins. Impression: 1. There is no evidence of deep venous thrombosis from the right common femoral to the popliteal veins. Electronically signed by: Alex Alejandra MD (03/11/2020 4:21 PM) [facility]
[2020-03-11 17:18] VITALS: BP 133/95
[2020-03-11] MEDS ORDERED: DOXY100C2 PO (17:24)
[2020-03-11] MEDS ORDERED: DOXYCYCLINE HYCLATE 100 MG TABLET PO ONE (17:30)
== END 2020-03-11 18:45 | disposition home or self-care (01) ==
LOC: ER 15:17
DX: L03.115 Cellulitis of right lower limb (principal); R60.0 Localized edema; L53.9 Erythematous condition, unspecified; K21.9 Gastro-esophageal reflux disease without esophagitis; Z85.9 Personal history of malignant neoplasm, unspecified; Z86.73 Personal history of transient ischemic attack (TIA), and cerebral infarction without residual deficits; Z98.890 Other specified postprocedural states; Z90.89 Acquired absence of other organs; Z88.8 Allergy status to other drugs, medicaments and biological substances
CPT/HCPCS: 36415; 80053; 83880; 85025; 93971; 99284

== ENCOUNTER 2020-05-11 16:52 | Inpatient (IN) | payer MEDICAID ==
[~2020-05-11] VITALS: Ht 167.6 cm; Wt 67.9 kg
[~2020-05-11 16:52] MED LIST changes: +DOXY100C2 PO
[2020-05-11] MEDS ORDERED: MORPHINE SULFATE 2 MG/ML VIAL. IV/SQ PRN (17:30)
[2020-05-11] MEDS ORDERED: NITROGLYCERIN SUBLINGUAL 0.4 MG BOTTLE OF 25. SL PRN ×2 (17:30→21:00)
[2020-05-11 17:36] LABS: BASO % 1 % (0-3); EOS # 0.1 x10^3/uL (0.0-0.7); EOS % 2 % (0-3); HEMATOCRIT 38.5 % (36.0-47.0); HEMOGLOBIN 12.6 g/dL (12.0-15.5); LYMPH # 0.7 x10^3/uL (1.0-4.8); LYMPH % 20 % (24-48); MEAN CORPUSCULAR HEMOGLOBIN 30 pg (25-35); MEAN CORPUSCULAR HGB CONC 33 g/dL (31-37); MEAN CORPUSCULAR VOLUME 91 fL (79-100); MONO # 0.2 x10^3/uL (0.0-1.1); MONO % 6 % (0-9); NEUT # 2.6 x10^3/uL (1.8-7.7); NEUT % 72 % (31-73); PLATELET COUNT 177 x10^3/uL (140-400); RED BLOOD COUNT 4.23 x10^6/uL (3.50-5.40); RED CELL DISTRIBUTION WIDTH 13.6 % (11.5-14.5); WHITE BLOOD COUNT 3.6 x10^3/uL (4.0-11.0)
[2020-05-11 17:43] LABS: PROTHROMBIN TIME PATIENT 12.3 SEC (11.7-14.0)
[2020-05-11 17:50] LABS: CALCIUM 9.5 mg/dL (8.5-10.1); GFR 68.2; POTASSIUM 3.4 mmol/L (3.5-5.1)
--- NOTE | 2020-05-11 17:52 | RAD ---
PORTABLE CHEST 1V 05/11/2020 5:24 PM INDICATION: Chest pain COMPARISON: 01/10/2020 TECHNIQUE: Portable frontal view of the chest is provided. FINDINGS: The cardiomediastinal silhouette is within normal limits. Nodular opacity identified in the right upper lobe in the right suprahilar space. There are no significant pleural effusions. There is no pulmonary vascular congestion. No pneumothorax. No suspicious osseous abnormality. IMPRESSION: Nodular opacity in the right upper lobe suprahilar space may represent pulmonary infiltrate, although neoplastic process may have similar appearance. Further characterization with CT chest is recommended. Electronically signed by: Areli Dobbins MD (05/11/2020 5:50 PM) [facility]
[2020-05-11 17:56] LABS: ALBUMIN 3.6 g/dL (3.4-5.0); ALBUMIN/GLOBULIN RATIO 0.7 (1.0-1.7); MAGNESIUM 2.1 mg/dL (1.8-2.4); TOTAL BILIRUBIN 0.2 mg/dL (0.2-1.0); TOTAL PROTEIN 8.8 g/dL (6.4-8.2)
[2020-05-11] MEDS ORDERED: ASPIRIN 325 MG TABLET PO ONE (18:00)
--- NOTE | 2020-05-11 19:51 | RAD ---
CT of the chest without contrast: Clinical History: Reason: chest pain / Spl. Instructions: / History: . Axial helical images of the chest were obtained without contrast. FINDINGS: There is patchy linear opacity in the right upper lobe anteriorly. There are groundglass opacities in the lower lungs. The ascending aorta is borderline enlarged measuring 3.6 cm in diameter. There are T2 and T4 vertebral body compression fractures with impaction of the endplates and loss of stature mild T2 and moderate at C4. There is no mediastinal or hilar lymphadenopathy. Impression: 1. Right upper lobe infiltrate could be discoid atelectasis or scar. 2. Groundglass opacities are nonspecific and likely discoid atelectasis. 3. T2 and T4 vertebral body compression fractures presumably old. End impression PQRS Compliance Statement: One or more of the following individualized dose reduction techniques were utilized for this examination: 1. Automated exposure control 2. Adjustment of the mA and/or kV according to patient size 3. Use of iterative reconstruction technique Electronically signed by: Danny Morales III, MD (05/11/2020 7:48 PM) [facility]
--- NOTE | 2020-05-11 20:51 | PHYS DOC ---
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 Patient is not verbal, only points to the chest when asked if she has pain. Exam difficult. Review of Systems: Review of Systems: Constitutional: Unable to assess due to aphasia Eyes: Unable to assess due to aphasia HENT: Unable to assess due to aphasia Respiratory: Unable to assess due to aphasia Cardiovascular: Points at the chest when asked if she has pain GI: Unable to assess due to aphasia : Unable to assess due to aphasia Musculoskeletal: Unable to assess due to aphasia Integument: Unable to assess due to aphasia Neurologic: Unable to assess due to aphasia Heart Score: Risk Factors: Risk Factors: DM, Current or recent (<one month) smoker, HTN, HLP, family history of CAD, obesity. Risk Scores: Score 0 - 3: 2.5% MACE over next 6 weeks - Discharge Home Score 4 - 6: 20.3% MACE over next 6 weeks - Admit for Clinical Observation Score 7 - 10: 72.7% MACE over next 6 weeks - Early Invasive Strategies Current Medications: Current Medications Medications (Trade) Dose Ordered Sig/[facility] Start Time Stop Time Status Last Admin Dose Admin Aspirin (Yoni Aspirin) 325 mg 1X ONCE 05/11/20 18:00 05/11/20 18:01 DC 05/11/20 18:42 325 MG Morphine Sulfate (Morphine Sulfate) 2 mg PRN Q15MIN PRN 05/11/20 17:30 05/12/20 17:29 05/11/20 18:43 2 MG Nitroglycerin (Nitrostat) 0.4 mg PRN Q5MIN PRN 05/11/20 17:30 05/12/20 17:29 Allergies: Allergies: Allergies Coded Allergies Type Severity Reaction Last Updated Verified ceftriaxone Allergy Intermediate SWELLING,HIVES 10/16/17 Yes Physical Exam: PE: Constitutional: Well developed, well nourished, no acute distress, non-toxic a ppearance. [] HENT: Normocephalic, atraumatic, bilateral external ears normal, oropharynx moist, no oral exudates, nose normal. [] Eyes: PERRLA, EOMI, conjunctiva normal, no discharge. [] Neck: Normal range of motion, no tenderness, supple, no stridor. [] Cardiovascular:Heart rate regular rhythm, no murmur [] Lungs & Thorax: Bilateral breath sounds clear to auscultation [] Abdomen: Bowel sounds normal, soft, no tenderness, no masses, no pulsatile masses. [] Skin: Warm, dry, no erythema, no rash. [] Back: No tenderness, no CVA tenderness. [] Extremities: Contracted right upper extremity. Bilateral lower extremities deformed consistent with CVA, no tenderness, no cyanosis, no clubbing, ROM intact, no edema. [] Neurologic: Alert and oriented X 1, normal motor function, normal sensory function, no focal deficits noted. [] Psychologic: Affect normal, judgement normal, mood normal. [] Current Patient Data: Labs: Laboratory Tests Test 05/11/20 17:10 White Blood Count 3.6 x10^3/uL (4.0-11.0) L Red Blood Count 4.23 x10^6/uL (3.50-5.40) Hemoglobin 12.6 g/dL (12.0-15.5) Hematocrit 38.5 % (36.0-47.0) Mean Corpuscular Volume 91 fL (79-100) Mean Corpuscular Hemoglobin 30 pg (25-35) Mean Corpuscular Hemoglobin Concent 33 g/dL (31-37) Red Cell Distribution Width 13.6 % (11.5-14.5) Platelet Count 177 x10^3/uL (140-400) Neutrophils (%) (Auto) 72 % (31-73) Lymphocytes (%) (Auto) 20 % (24-48) L Monocytes (%) (Auto) 6 % (0-9) Eosinophils (%) (Auto) 2 % (0-3) Basophils (%) (Auto) 1 % (0-3) Neutrophils # (Auto) 2.6 x10^3/uL (1.8-7.7) Lymphocytes # (Auto) 0.7 x10^3/uL (1.0-4.8) L Monocytes # (Auto) 0.2 x10^3/uL (0.0-1.1) Eosinophils # (Auto) 0.1 x10^3/uL (0.0-0.7) Basophils # (Auto) 0.0 x10^3/uL (0.0-0.2) Prothrombin Time 12.3 SEC (11.7-14.0) Prothrombin Time INR 1.0 (0.8-1.1) Sodium Level 141 mmol/L (136-145) Potassium Level 3.4 mmol/L (3.5-5.1) L Chloride Level 105 mmol/L (98-107) Carbon Dioxide Level 26 mmol/L (21-32) Anion Gap 10 (6-14) Blood Urea Nitrogen 30 mg/dL (7-20) H Creatinine 1.0 mg/dL (0.6-1.0) Estimated GFR (Cockcroft-Gault) 68.2 BUN/Creatinine Ratio 30 (6-20) H Glucose Level 129 mg/dL (70-99) H Calcium Level 9.5 mg/dL (8.5-10.1) Magnesium Level 2.1 mg/dL (1.8-2.4) Total Bilirubin 0.2 mg/dL (0.2-1.0) Aspartate Amino Transferase (AST) 32 U/L (15-37) Alanine Aminotransferase (ALT) 38 U/L (14-59) Alkaline Phosphatase 134 U/L (46-116) H Troponin I Quantitative < 0.017 ng/mL (0.000-0.055) ZQ-Wdy-M-Type Natriuretic Peptide 37 pg/mL (0-124) Total Protein 8.8 g/dL (6.4-8.2) H Albumin 3.6 g/dL (3.4-5.0) Albumin/Globulin Ratio 0.7 (1.0-1.7) L Thyroid Stimulating Hormone (TSH) 1.188 uIU/mL (0.358-3.74) Laboratory Tests 05/11/20 17:10 Laboratory Tests 05/11/20 17:10 Vital Signs: Vital Signs Date Time Temp Pulse Resp B/P (MAP) Pulse Ox O2 Delivery O2 Flow Rate FiO2 05/11/20 18:43 18 98 Room Air 05/11/20 17:00 98.1 86 117/76 (90 98.1 EKG: EK Interpreted by Dr. Oliva sinus rhythm heart rate 85 no STEMI [] Radiology/Procedures: Radiology/Procedures: []PROCEDURE: PORTABLE CHEST 1V PORTABLE CHEST 1V 05/11/2020 5:24 PM INDICATION: Chest pain COMPARISON: 01/10/2020 TECHNIQUE: Portable frontal view of the chest is provided. FINDINGS: The cardiomediastinal silhouette is within normal limits. Nodular opacity identified in the right upper lobe in the right suprahilar space. There are no significant pleural effusions. There is no pulmonary vascular congestion. No pneumothorax. No suspicious osseous abnormality. IMPRESSION: Nodular opacity in the right upper lobe suprahilar space may represent pulmonary infiltrate, although neoplastic process may have similar appearance. Further characterization with CT chest is recommended. Electronically signed by: Hodan Richter MD (05/11/2020 5:50 PM) [facility] DICTATED and SIGNED BY: HODAN RICHTER MD DATE: 05/11/201749 PROCEDURE: CT CHEST WO CONTRAST CT of the chest without contrast: Clinical History: Reason: chest pain / Spl. Instructions: / History: . Axial helical images of the chest were obtained without contrast. FINDINGS: There is patchy linear opacity in the right upper lobe anteriorly. There are groundglass opacities in the lower lungs. The ascending aorta is borderline enlarged measuring 3.6 cm in diameter. There are T2 and T4 vertebral body compression fractures with impaction of the endplates and loss of stature mild T2 and moderate at C4. There is no mediastinal or hilar lymphadenopathy. Impression: 1. Right upper lobe infiltrate could be discoid atelectasis or scar. 2. Groundglass opacities are nonspecific and likely discoid atelectasis. 3. T2 and T4 vertebral body compression fractures presumably old. End impression PQRS Compliance Statement: One or more of the following individualized dose reduction techniques were utilized for this examination: 1. Automated exposure control 2. Adjustment of the mA and/or kV according to patient size 3. Use of iterative reconstruction technique Electronically signed by: Federico Brock III, MD (05/11/2020 7:48 PM) [facility] DICTATED and SIGNED BY: FEDERICO BROCK III, MD DATE: 09/06/20 1948 Course & Med Decision Making: Course & Med Decision Making Pertinent Labs and Imaging studies reviewed. (See chart for details) This is a 60-year-old female patient with history of CVA and expressive aphasia presenting to the ED pointing to her chest as her source of pain. EKG is negative, troponin is normal, CBC with a WBC of 3.6 which is around her baseline. CMP with no acute findings. CT of the chest was noted for right upper lobe infiltrate could be discoid atelectasis or scar. Groundglass opacities are nonspecific and likely discoid atelectasis. T2 and T4 vertebral body compression fractures presumably old. COVID19 swab was obtained. Patient was started on Zithromax, Solu-Medrol and Levaquin Family called the ED and spoke to the nurse, the stated this patient keeps eloping from the house. They state they are constantly chasing after patient. This patient will benefit from placement. office services clerk consult placed. Dontae Disclaimer: Dontae Disclaimer: This electronic medical record was generated, in whole or in part, using a voice recognition dictation system. Departure Departure Impression: Primary Impression: Chest pain Qualified Codes: R07.9 - Chest pain, unspecified Additional Impression: Person under investigation for COVID-19 Disposition: ADMITTED INPATIENT Condition: STABLE Referrals: Marquita AGUILERA MD (PCP) Justicifation of Admission Dx: Justifications for Admission: Justification of Admission Dx: Yes (chest pain, placement) Cellulitis: Cellulitis MARCK MA APRN May 11, 2020 20:51
[2020-05-11] MEDS ORDERED: ONDANSETRON PF 4 MG/2 ML VIAL. IV PRN (21:00)
[2020-05-11] MEDS ORDERED: AZITHRMYCN 500MG IVPB FOR OMNI 250 ML IV ONE (21:00)
[2020-05-11] MEDS ORDERED: methylPREDNISolone SOD SUCC PF 125 MG/2 ML VIAL. IV ONE (21:00)
[2020-05-12] VITALS (7 sets, daily range): BP systolic 113–147; BP diastolic 60–90
[2020-05-12 06:31] LABS: CALCIUM 10.4 mg/dL (8.5-10.1); CREATININE 0.9 mg/dL (0.6-1.0); POTASSIUM 4.1 mmol/L (3.5-5.1)
[2020-05-12 07:06] LABS: BASO % 0 % (0-3); EOS % 0 % (0-3); HEMATOCRIT 43.3 % (36.0-47.0); HEMOGLOBIN 14.1 g/dL (12.0-15.5); LYMPH # 0.5 x10^3/uL (1.0-4.8); LYMPH % 18 % (24-48); MEAN CORPUSCULAR HEMOGLOBIN 30 pg (25-35); MEAN CORPUSCULAR HGB CONC 33 g/dL (31-37); MEAN CORPUSCULAR VOLUME 92 fL (79-100); MONO % 1 % (0-9); NEUT # 2.4 x10^3/uL (1.8-7.7); NEUT % 81 % (31-73); PLATELET COUNT 154 x10^3/uL (140-400); RED BLOOD COUNT 4.73 x10^6/uL (3.50-5.40)
--- NOTE | 2020-05-12 07:17 | EKG ---
[facility] [address] [place] [address] Test Date: 2020-05-11 Test Time: 17:09:35 Pat Name: LEXII HAYDEN Department: Room: Gender: F [employer]: : [id number] Requested By: MARCK MA Order Number: [id number] Reading MD: Measurements Intervals [place] Rate: 85 P: 100 MA: 182 QRS: 115 QRSD: 70 T: 156 QT: 442 QTc: 526 Interpretive Statements SINUS RHYTHM ABNORMAL RIGHT AXIS DEVIATION QRS(T) CONTOUR ABNORMALITY CONSISTENT WITH HIGH LATERAL INFARCT AGE UNDETERMINED T ABNORMALITY IN INFERIOR LEADS ABNORMAL ECG RI6.02 No previous ECG available for comparison
[2020-05-12] MEDS ORDERED: MIRT30TA3 PO (09:00)
--- NOTE | 2020-05-12 09:13 | PDOC1 ---
History and Physical Date of Admission Date of Admission DATE: 05/12/20 TIME: 09:10 Identification/Chief Complaint Chief Complaint SEEN IN ER , 60 year old female with history of CVA-aphasia, right breast cancer with mastectomy, who presented to the ED 05/11 to be evaluated for chest pain. not verbal, only points to the chest when asked if she has pain. 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 Past Surgical History: Other Additional Past Surgical Histo: ABDOMINAL VERTICAL SURGICAL SCAR, rt masectomy Smoking Status: Never Smoker Alcohol Use: None Drug Use: None, Benzodiazepine fhx HTN Musculoskeletal: Osteoarthritis Family History Family History: Hypertension Social History Smoke: No ALCOHOL: none Drugs: None Current Problem List Problem List Problems Medical Problems: (1) Chest pain Status: Acute (2) Person under investigation for COVID-19 Status: Acute Current Medications Current Medications Current Medications Aspirin (Yoni Aspirin) 325 mg 1X ONCE PO Last administered on 05/11/20at 18:42; Start 05/11/20 at 18:00; Stop 05/11/20 at 18:01; Status DC Nitroglycerin (Nitrostat) 0.4 mg PRN Q5MIN PRN SL CP RATING > 1/10; Start 05/11/20 at 17:30; Stop 05/12/20 at 17:29 Morphine Sulfate (Morphine Sulfate) 2 mg PRN Q15MIN PRN IV/SQ PAIN GREATER THAN 3/10 Last administered on 05/11/20at 18:43; Start 05/11/20 at 17:30; Stop 05/12/20 at 17:29 Ondansetron HCl (Zofran) 4 mg PRN Q8HRS PRN IV NAUSEA/VOMITING; Start 05/11/20 at 21:00; Stop 05/12/20 at 20:59 Nitroglycerin (Nitrostat) 0.4 mg PRN Q5MIN PRN SL CHEST PAIN; Start 05/11/20 at 21:00; Stop 05/12/20 at 20:59 Azithromycin 250 ml @ 250 mls/hr 1X ONCE IV ; Start 05/11/20 at 21:00; Stop 05/11/20 at 21:59; Status DC Levofloxacin/ Dextrose 100 ml @ 100 mls/hr 1X ONCE IV Last administered on 05/11/20at 22:35; Start 05/11/20 at 21:00; Stop 05/11/20 at 21:59; Status DC Methylprednisolone Sodium Succinate (SOLU-Medrol 125MG VIAL) 125 mg 1X ONCE IV Last administered on 05/11/20at 22:35; Start 05/11/20 at 21:00; Stop 05/11/20 at 21:04; Status DC Active Scripts Active Doxycycline Hyclate 100 Mg Capsule 1 Cap PO BID Magnesium Citrate 296 Ml Solution 296 Ml PO ONCE [place]agoner 5-325 Tablet (Acetaminophen/Hydrocodone Bitart) 1 Each Tablet 1 Tab PO PRN Q6HRS PRN K-Tab ER (Potassium Chloride) 20 Meq Tablet.er 20 Meq PO DAILY 14 Days Valium (Diazepam) 5 Mg Tablet 5 Mg PO BID Orphenadrine Citrate 100 Mg Tablet.er 100 Mg PO BID PRN Valium (Diazepam) 5 Mg Tablet 5 Mg PO DAILY Potassium Chloride (Potassium Chloride) 10 Meq Tab.sr.24h 10 Meq PO TID Voltaren (Diclofenac Sodium) 100 Gm Gel..gram. 1 Gm TP QID Naprosyn (Naproxen) 500 Mg Tablet 500 Mg PO PRN BID PRN 30 Days Cozaar (Losartan Potassium) 50 Mg Tablet 50 Mg PO DAILY 30 Days Polyethylene Glycol 3350 17 Gm Powd.pack 17 Gm PO DAILY 30 Days Tessalon Perle (Benzonatate) 100 Mg Capsule 1 Cap PO TID Proair Respiclick (Albuterol Sulfate) 90 Mcg Aer.pow.ba 1 Puff IH PRN Q6HRS PRN Reported Mirtazapine 30 Mg Tablet 1 Tab PO QHS Hydrocodone-Apap 7.5-325 (Hydrocodone Bit/Acetaminophen) 1 Each Tablet 1 Tab PO PRN Q6HRS PRN Baclofen 20 Mg Tablet 20 Mg PO TID Omeprazole 20 Mg Capsule.dr 20 Mg PO DAILY Lidoderm (Lidocaine) 700 Mg Adh..patch 1 Patch TP PRN Ferrous Sulfate 325 Mg Tablet 325 Mg PO DAILY Klor-Con 10 (Potassium Chloride) 10 Meq Tablet.er 1 Tab PO TIDWMEALS Zetia (Ezetimibe) 10 Mg Tablet 1 Tab PO DAILY Senexon-S Tablet (Sennosides/Docusate Sodium) 1 Each Tablet 2 Each PO QHS Simvastatin 10 Mg Tablet 1 Tab PO QHS Carbamazepine 200 Mg Tablet 200 Mg PO BID Hydrochlorothiazide Tablet (Hydrochlorothiazide) 12.5 Mg Tablet 25 Mg PO DAILY FENTANYL 25mcg/hr (Fentanyl) 1 Each Patch.td72 1 Patch TD Q72H Allergies Allergies: Coded Allergies: ceftriaxone (Verified Allergy, Intermediate, SWELLING,HIVES, 10/16/17) ROS Review of System Constitutional: Unable to assess due to aphasia Eyes: Unable to assess due to aphasia HENT: Unable to assess due to aphasia Respiratory: Unable to assess due to aphasia Cardiovascular: Points at the chest when asked if she has pain GI: Unable to assess due to aphasia : Unable to assess due to aphasia Musculoskeletal: Unable to assess due to aphasia Integument: Unable to assess due to aphasia Neurologic: Unable to assess due to aphasia Gastrointestinal: No Nausea, No Vomiting, No Abdominal Pain, No Diarrhea, No Constipation, No Melena, No Hematochezia, No Other Physical Exam Physical Exam Constitutional: Well developed, well nourished, no acute distress, non-toxic appearance. [] HENT: Normocephalic, atraumatic, bilateral external ears normal, oropharynx moist, no oral exudates, nose normal. [] Eyes: PERRLA, EOMI, conjunctiva normal, no discharge. [] Neck: Normal range of motion, no tenderness, supple, no stridor. [] Cardiovascular:Heart rate regular rhythm, no murmur [] Lungs & Thorax: Bilateral breath sounds clear to auscultation [] Abdomen: Bowel sounds normal, soft, no tenderness, no masses, no pulsatile masses. [] Skin: Warm, dry, no erythema, no rash. [] Back: No tenderness, no CVA tenderness. [] Extremities: Contracted right upper extremity. Bilateral lower extremities deformed consistent with CVA, no tenderness, no cyanosis, no clubbing, ROM intact, no edema. [] General: Cooperative Breasts: Not examined Abdomen: Soft, No tenderness Rectal Exam: not examined Neuro: Cranial nerves 3-12 NL Vitals Vitals Vital Signs Date Time Temp Pulse Resp B/P (MAP) Pulse Ox O2 Delivery O2 Flow Rate FiO2 05/12/20 03:00 97.6 58 16 113/60 (77) 97 Room Air 97.6 Labs Labs Laboratory Tests Test 05/11/20 17:10 9/6/20 20:20 05/11/20 23:10 05/12/20 05:35 White Blood Count 3.6 x10^3/uL (4.0-11.0) 3.0 x10^3/uL (4.0-11.0) Red Blood Count 4.23 x10^6/uL (3.50-5.40) 4.73 x10^6/uL (3.50-5.40) Hemoglobin 12.6 g/dL (12.0-15.5) 14.1 g/dL (12.0-15.5) Hematocrit 38.5 % (36.0-47.0) 43.3 % (36.0-47.0) Mean Corpuscular Volume 91 fL (79-100) 92 fL (79-100) Mean Corpuscular Hemoglobin 30 pg (25-35) 30 pg (25-35) Mean Corpuscular Hemoglobin Concent 33 g/dL (31-37) 33 g/dL (31-37) Red Cell Distribution Width 13.6 % (11.5-14.5) 14.0 % (11.5-14.5) Platelet Count 177 x10^3/uL (140-400) 154 x10^3/uL (140-400) Neutrophils (%) (Auto) 72 % (31-73) 81 % (31-73) Lymphocytes (%) (Auto) 20 % (24-48) 18 % (24-48) Monocytes (%) (Auto) 6 % (0-9) 1 % (0-9) Eosinophils (%) (Auto) 2 % (0-3) 0 % (0-3) Basophils (%) (Auto) 1 % (0-3) 0 % (0-3) Neutrophils # (Auto) 2.6 x10^3/uL (1.8-7.7) 2.4 x10^3/uL (1.8-7.7) Lymphocytes # (Auto) 0.7 x10^3/uL (1.0-4.8) 0.5 x10^3/uL (1.0-4.8) Monocytes # (Auto) 0.2 x10^3/uL (0.0-1.1) 0.0 x10^3/uL (0.0-1.1) Eosinophils # (Auto) 0.1 x10^3/uL (0.0-0.7) 0.0 x10^3/uL (0.0-0.7) Basophils # (Auto) 0.0 x10^3/uL (0.0-0.2) 0.0 x10^3/uL (0.0-0.2) Prothrombin Time 12.3 SEC (11.7-14.0) Prothromb Time International Ratio 1.0 (0.8-1.1) Sodium Level 141 mmol/L (136-145) 141 mmol/L (136-145) Potassium Level 3.4 mmol/L (3.5-5.1) 4.1 mmol/L (3.5-5.1) Chloride Level 105 mmol/L (98-107) 101 mmol/L (98-107) Carbon Dioxide Level 26 mmol/L (21-32) 27 mmol/L (21-32) Anion Gap 10 (6-14) 13 (6-14) Blood Urea Nitrogen 30 mg/dL (7-20) 28 mg/dL (7-20) Creatinine 1.0 mg/dL (0.6-1.0) 0.9 mg/dL (0.6-1.0) Estimated GFR (Cockcroft-Gault) 68.2 77.0 BUN/Creatinine Ratio 30 (6-20) Glucose Level 129 mg/dL (70-99) 121 mg/dL (70-99) Calcium Level 9.5 mg/dL (8.5-10.1) 10.4 mg/dL (8.5-10.1) Magnesium Level 2.1 mg/dL (1.8-2.4) Total Bilirubin 0.2 mg/dL (0.2-1.0) Aspartate Amino Transf (AST/SGOT) 32 U/L (15-37) Alanine Aminotransferase (ALT/SGPT) 38 U/L (14-59) Alkaline Phosphatase 134 U/L (46-116) Troponin I Quantitative < 0.017 ng/mL (0.000-0.055) < 0.017 ng/mL (0.000-0.055) 0.017 ng/mL (0.000-0.055) ZK-Iql-A-Type Natriuretic Peptide 37 pg/mL (0-124) Total Protein 8.8 g/dL (6.4-8.2) Albumin 3.6 g/dL (3.4-5.0) Albumin/Globulin Ratio 0.7 (1.0-1.7) Thyroid Stimulating Hormone (TSH) 1.188 uIU/mL (0.358-3.74) Laboratory Tests Test 05/11/20 17:10 05/11/20 20:20 05/11/20 23:10 05/12/20 05:35 White Blood Count 3.6 x10^3/uL (4.0-11.0) 3.0 x10^3/uL (4.0-11.0) Red Blood Count 4.23 x10^6/uL (3.50-5.40) 4.73 x10^6/uL (3.50-5.40) Hemoglobin 12.6 g/dL (12.0-15.5) 14.1 g/dL (12.0-15.5) Hematocrit 38.5 % (36.0-47.0) 43.3 % (36.0-47.0) Mean Corpuscular Volume 91 fL (79-100) 92 fL (79-100) Mean Corpuscular Hemoglobin 30 pg (25-35) 30 pg (25-35) Mean Corpuscular Hemoglobin Concent 33 g/dL (31-37) 33 g/dL (31-37) Red Cell Distribution Width 13.6 % (11.5-14.5) 14.0 % (11.5-14.5) Platelet Count 177 x10^3/uL (140-400) 154 x10^3/uL (140-400) Neutrophils (%) (Auto) 72 % (31-73) 81 % (31-73) Lymphocytes (%) (Auto) 20 % (24-48) 18 % (24-48) Monocytes (%) (Auto) 6 % (0-9) 1 % (0-9) Eosinophils (%) (Auto) 2 % (0-3) 0 % (0-3) Basophils (%) (Auto) 1 % (0-3) 0 % (0-3) Neutrophils # (Auto) 2.6 x10^3/uL (1.8-7.7) 2.4 x10^3/uL (1.8-7.7) Lymphocytes # (Auto) 0.7 x10^3/uL (1.0-4.8) 0.5 x10^3/uL (1.0-4.8) Monocytes # (Auto) 0.2 x10^3/uL (0.0-1.1) 0.0 x10^3/uL (0.0-1.1) Eosinophils # (Auto) 0.1 x10^3/uL (0.0-0.7) 0.0 x10^3/uL (0.0-0.7) Basophils # (Auto) 0.0 x10^3/uL (0.0-0.2) 0.0 x10^3/uL (0.0-0.2) Prothrombin Time 12.3 SEC (11.7-14.0) Prothromb Time International Ratio 1.0 (0.8-1.1) Sodium Level 141 mmol/L (136-145) 141 mmol/L (136-145) Potassium Level 3.4 mmol/L (3.5-5.1) 4.1 mmol/L (3.5-5.1) Chloride Level 105 mmol/L (98-107) 101 mmol/L (98-107) Carbon Dioxide Level 26 mmol/L (21-32) 27 mmol/L (21-32) Anion Gap 10 (6-14) 13 (6-14) Blood Urea Nitrogen 30 mg/dL (7-20) 28 mg/dL (7-20) Creatinine 1.0 mg/dL (0.6-1.0) 0.9 mg/dL (0.6-1.0) Estimated GFR (Cockcroft-Gault) 68.2 77.0 BUN/Creatinine Ratio 30 (6-20) Glucose Level 129 mg/dL (70-99) 121 mg/dL (70-99) Calcium Level 9.5 mg/dL (8.5-10.1) 10.4 mg/dL (8.5-10.1) Magnesium Level 2.1 mg/dL (1.8-2.4) Total Bilirubin 0.2 mg/dL (0.2-1.0) Aspartate Amino Transf (AST/SGOT) 32 U/L (15-37) Alanine Aminotransferase (ALT/SGPT) 38 U/L (14-59) Alkaline Phosphatase 134 U/L (46-116) Troponin I Quantitative < 0.017 ng/mL (0.000-0.055) < 0.017 ng/mL (0.000-0.055) 0.017 ng/mL (0.000-0.055) AI-Sfb-O-Type Natriuretic Peptide 37 pg/mL (0-124) Total Protein 8.8 g/dL (6.4-8.2) Albumin 3.6 g/dL (3.4-5.0) Albumin/Globulin Ratio 0.7 (1.0-1.7) Thyroid Stimulating Hormone (TSH) 1.188 uIU/mL (0.358-3.74) Images Images CT of the chest without contrast: Clinical History: Reason: chest pain / Spl. Instructions: / History: . Axial helical images of the chest were obtained without contrast. FINDINGS: There is patchy linear opacity in the right upper lobe anteriorly. There are groundglass opacities in the lower lungs. The ascending aorta is borderline enlarged measuring 3.6 cm in diameter. There are T2 and T4 vertebral body compression fractures with impaction of the endplates and loss of stature mild T2 and moderate at C4. There is no mediastinal or hilar lymphadenopathy. Impression: 1. Right upper lobe infiltrate could be discoid atelectasis or scar. 2. Groundglass opacities are nonspecific and likely discoid atelectasis. 3. T2 and T4 vertebral body compression fractures presumably old. End impression PQRS Compliance Statement: One or more of the following individualized dose reduction techniques were utilized for this examination: 1. Automated exposure control 2. Adjustment of the mA and/or kV according to patient size 3. Use of iterative reconstruction technique Electronically signed by: Federico Morales III, MD (05/11/2020 7:48 PM) [facility] DICTATED and SIGNED BY: FEDERICO MORALES III, MD CT of the chest without contrast: Clinical History: Reason: chest pain / Spl. Instructions: / History: . Axial helical images of the chest were obtained without contrast. FINDINGS: There is patchy linear opacity in the right upper lobe anteriorly. There are groundglass opacities in the lower lungs. The ascending aorta is borderline enlarged measuring 3.6 cm in diameter. There are T2 and T4 vertebral body compression fractures with impaction of the endplates and loss of stature mild T2 and moderate at C4. There is no mediastinal or hilar lymphadenopathy. Impression: 1. Right upper lobe infiltrate could be discoid atelectasis or scar. 2. Groundglass opacities are nonspecific and likely discoid atelectasis. 3. T2 and T4 vertebral body compression fractures presumably old. End impression PQRS Compliance Statement: One or more of the following individualized dose reduction techniques were utilized for this examination: 1. Automated exposure control 2. Adjustment of the mA and/or kV according to patient size 3. Use of iterative reconstruction technique Electronically signed by: Federico Morales III, MD (05/11/2020 7:48 PM) [facility] DICTATED and SIGNED BY: FEDERICO MORALES III, MD DATE: 05/11/201947 VTE Prophylaxis Ordered VTE Prophylaxis Devices: No VTE Pharmacological Prophylaxi: Yes Assessment/Plan Assessment/Plan Impression: Chest pain Right upper lobe infiltrate could be discoid atelectasis or scar. Nodular opacity in the right upper lobe suprahilar space may represent pulmonary infiltrate, Groundglass opacities are nonspecific and likely discoid atelectasis. T2 and T4 vertebral body compression fractures presumably old. remote cva with paresis leukopenia normocytic anemia Person under investigation for COVID-19 plan ADMITTED trend troponin i consult cardiology consult pulm emperic iv antibiotics dvt prophylaxis resp isolation blood cultures trend troponin i retic What Is a Power of Crown Blocker? A power of corporate attorney (POA) is a legal document giving one person (the agent or [id number]) the power to act for another person (the principal). The agent can have broad legal authority or limited authority to make legal decisions about the principal's property, finances or medical care. The power of corporate attorney is frequently used in the event of a principal's illness or disability, or when the principal can't be present to sign necessary legal documents for financial transactions. A power of corporate attorney can end for a number of reasons, such as when the principal dies, the principal revokes it, a court invalidates it, the principal divorces their spouse, who happens to be the agent, or the agent can no longer carry out the outlined responsibilities. Conventional POAs lapse when the creator becomes incapacitated, but a durable POA remains in force to enable the agent to manage the creators affairs, and a springing POA comes into effect only if and when the creator of the POA becomes incapacitated. A medical or healthcare POA enables an agent to make medical decisions on behalf of an incapacitated person. [employer] A power of corporate attorney (POA) is a legal document giving one person, the agent or [id number] the power to act for another person, the principal. The agent can have broad legal authority or limited authority to make decisions about the principal's property, finances or medical care. The power of corporate attorney is often used when a principal becomes ill or disabled, or when they can't be present to sign necessary legal documents for financial transactions. Understanding Power of Crown Blocker A power of corporate attorney should be considered when planning for long-term care. There are different types of POAs that fall under either a general power of corporate attorney or limited power of corporate attorney. Justifications for Admission Other Justification SCOTT LEWIS MD May 12, 2020 09:13
[2020-05-12] MEDS ORDERED: LIDOCAINE (700MG/PATCH) PATCH. TP PRN (09:15)
[2020-05-12] MEDS ORDERED: ALBUTEROL SULFATE 2.5 MG/3 ML NEBU. NEB PRN (09:15)
[2020-05-12] MEDS: POLYETHYLENE GLYCOL 3350 17 GM PACKET. PO SCH (09:56)
[2020-05-12] MEDS: FERROUS SULFATE 325 MG TABLET. PO SCH (09:57)
[2020-05-12] MEDS: LOSARTAN POTASSIUM 50 MG TABLET. PO SCH (09:57)
[2020-05-12] MEDS: EZETIMIBE 10 MG TABLET. PO SCH (09:57)
[2020-05-12] MEDS: BENZONATATE 100 MG CAPSULE. PO SCH ×3 (09:57→19:51)
[2020-05-12] MEDS: carBAMazepine 200 MG TABLET PO SCH ×2 (09:57→19:51)
[2020-05-12] MEDS: HYDROcodone/APAP 7.5/325MG 1 TAB TABLET PO PRN ×2 (09:58→18:05)
[2020-05-12] MEDS: NAPROXEN 500 MG TABLET PO PRN ×2 (09:58→19:51)
[2020-05-12] MEDS: DICLOFENAC SODIUM 1% TOPICAL GEL 100GM TUBE. TP SCH ×4 (10:00→19:52)
[2020-05-12] MEDS ORDERED: POTASSIUM CHLORIDE 10 MEQ TABLET.ER. PO SCH (14:00)
[2020-05-12] MEDS: POTASSIUM CHLORIDE 10 MEQ TABLET.ER. PO SCH ×2 (14:26→18:04)
[2020-05-12] MEDS: SIMVASTATIN 10 MG TABLET PO SCH (19:51)
[2020-05-12] MEDS: SENNOSIDES/DOCUSATE 8.6/50MG TABLET. PO SCH (19:52)
--- NOTE | 2020-05-12 21:56 | NUR ---
Patient has ripped all of her leads off. Ripped out and Removed her PIV. Sitting on side of bed. Trying to put on her street clothes. paged Dr Merida
[2020-05-12] MEDS ORDERED: HALOPERIDOL LACTATE 5 MG/ML VIAL. IM PRN (22:45)
[2020-05-13 03:00] VITALS: BP 108/59
[2020-05-13 04:54] LABS: BASO % 1 % (0-3); EOS % 1 % (0-3); HEMATOCRIT 31.4 % (36.0-47.0); HEMOGLOBIN 10.1 g/dL (12.0-15.5); LYMPH # 1.2 x10^3/uL (1.0-4.8); LYMPH % 31 % (24-48); MEAN CORPUSCULAR HEMOGLOBIN 29 pg (25-35); MEAN CORPUSCULAR HGB CONC 32 g/dL (31-37); MEAN CORPUSCULAR VOLUME 91 fL (79-100); MONO # 0.4 x10^3/uL (0.0-1.1); MONO % 10 % (0-9); NEUT # 2.2 x10^3/uL (1.8-7.7); NEUT % 57 % (31-73); PLATELET COUNT 154 x10^3/uL (140-400); RED BLOOD COUNT 3.44 x10^6/uL (3.50-5.40); RED CELL DISTRIBUTION WIDTH 13.8 % (11.5-14.5); WHITE BLOOD COUNT 3.8 x10^3/uL (4.0-11.0)
[2020-05-13 07:00] VITALS: BP 119/62
[2020-05-13] MEDS: DICLOFENAC SODIUM 1% TOPICAL GEL 100GM TUBE. TP SCH ×4 (09:00→21:00)
[2020-05-13] MEDS: POTASSIUM CHLORIDE 10 MEQ TABLET.ER. PO SCH ×3 (10:01→18:30)
[2020-05-13] MEDS: LOSARTAN POTASSIUM 50 MG TABLET. PO SCH (10:01)
[2020-05-13] MEDS: BENZONATATE 100 MG CAPSULE. PO SCH ×3 (10:02→21:44)
[2020-05-13] MEDS: EZETIMIBE 10 MG TABLET. PO SCH (10:02)
[2020-05-13] MEDS: FERROUS SULFATE 325 MG TABLET. PO SCH (10:02)
[2020-05-13] MEDS: carBAMazepine 200 MG TABLET PO SCH ×2 (10:02→21:44)
[2020-05-13] MEDS: POLYETHYLENE GLYCOL 3350 17 GM PACKET. PO SCH (10:02)
--- NOTE | 2020-05-13 10:09 | PDOC ---
PROGRESS NOTES Date of Service: DATE: 05/13/20 TIME: 10:08 Chief Complaint Chief Complaint TE Prophylaxis Ordered VTE Prophylaxis Devices: No VTE Pharmacological Prophylaxi: Yes DISCHARGE DX Assessment/Plan Impression: Chest pain/ GERD Right upper lobe infiltrate could be discoid atelectasis or scar. Nodular opacity in the right upper lobe suprahilar space may represent pulmonary infiltrate, LIKELY SCAR Groundglass opacities are nonspecific and likely discoid atelectasis. T2 and T4 vertebral body compression fractures presumably old. remote cva with paresis leukopenia normocytic anemia Person under investigation for COVID-19 neg 05/13 plan ADMITTED trend troponin i consult cardiology consult pulm emperic iv antibiotics dvt prophylaxis resp isolation blood cultures trend troponin i retic 05/13 AGITATED LAST NIGH, PULLED OUT IV D/W NICOLE ANN TO DISCHARGE DPOA NEEDED, DISCUSSED 17 MIN DPOA ? SISTER D/C PLANNING 33 MIN History of Present Illness History of Present Illness Identification/Chief Complaint Chief Complaint SEEN IN ER , 60 year old female with history of CVA-aphasia, right breast cancer with mastectomy, who presented to the ED 05/11 to be evaluated for chest pain. not verbal, only points to the chest when asked if she has pain. 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 Past Surgical History: Other Additional Past Surgical Histo: ABDOMINAL VERTICAL SURGICAL SCAR, rt masectomy Smoking Status: Never Smoker Alcohol Use: None Drug Use: None, Benzodiazepine fhx HTN Musculoskeletal: Osteoarthritis Family History Family History: Hypertension Social History Smoke: No ALCOHOL: none Drugs: None Vitals Vitals Vital Signs Date Time Temp Pulse Resp B/P (MAP) Pulse Ox O2 Delivery O2 Flow Rate FiO2 05/13/20 10:01 95 119/62 05/13/20 07:00 97.8 16 97 Room Air 97.8 Physical Exam Physical Exam Constitutional: Well developed, well nourished, no acute distress, non-toxic appearance. [] HENT: Normocephalic, atraumatic, bilateral external ears normal, oropharynx moist, no oral exudates, nose normal. [] Eyes: PERRLA, EOMI, conjunctiva normal, no discharge. [] Neck: Normal range of motion, no tenderness, supple, no stridor. [] Cardiovascular:Heart rate regular rhythm, no murmur [] Lungs & Thorax: Bilateral breath sounds clear to auscultation [] Abdomen: Bowel sounds normal, soft, no tenderness, no masses, no pulsatile masses. [] Skin: Warm, dry, no erythema, no rash. [] Back: No tenderness, no CVA tenderness. [] Extremities: Contracted right upper extremity. Bilateral lower extremities deformed consistent with CVA, no tenderness, no cyanosis, no clubbing, ROM intact, no edema. [] General: Cooperative Breasts: Not examined Abdomen: Soft, No tenderness Rectal Exam: not examined Neuro: Cranial nerves 3-12 NL General: Alert, Cooperative, No acute distress Lungs: Clear Abdomen: Soft, No tenderness Extremities: No cyanosis, No edema Skin: No significant lesion Labs LABS PATIENT: LEXII HAYDEN ACCOUNT: [id number] : 1960 LOCATION: ER AGE: 60 SEX: F EXAM STATUS: REG ER ORD. PHYSICIAN: MARCK MA APRN REASON: chest pain PROCEDURE: CT CHEST WO CONTRAST CT of the chest without contrast: Clinical History: Reason: chest pain / Spl. Instructions: / History: . Axial helical images of the chest were obtained without contrast. FINDINGS: There is patchy linear opacity in the right upper lobe anteriorly. There are groundglass opacities in the lower lungs. The ascending aorta is borderline enlarged measuring 3.6 cm in diameter. There are T2 and T4 vertebral body compression fractures with impaction of the endplates and loss of stature mild T2 and moderate at C4. There is no mediastinal or hilar lymphadenopathy. Impression: 1. Right upper lobe infiltrate could be discoid atelectasis or scar. 2. Groundglass opacities are nonspecific and likely discoid atelectasis. 3. T2 and T4 vertebral body compression fractures presumably old. End impression PQRS Compliance Statement: One or more of the following individualized dose reduction techniques were utilized for this examination: 1. Automated exposure control 2. Adjustment of the mA and/or kV according to patient size 3. Use of iterative reconstruction technique Electronically signed by: Federico Brock III, MD (05/11/2020 7:48 PM) [facility] DICTATED and SIGNED BY: FEDERICO BROCK III, MD Laboratory Tests Test 05/13/20 04:45 White Blood Count 3.8 x10^3/uL (4.0-11.0) Red Blood Count 3.38 x10^6/uL (3.50-5.70) Hemoglobin 10.1 g/dL (12.0-15.5) Hematocrit 31.4 % (36.0-47.0) Mean Corpuscular Volume 91 fL (79-100) Mean Corpuscular Hemoglobin 29 pg (25-35) Mean Corpuscular Hemoglobin Concent 32 g/dL (31-37) Red Cell Distribution Width 13.8 % (11.5-14.5) Platelet Count 154 x10^3/uL (140-400) Neutrophils (%) (Auto) 57 % (31-73) Lymphocytes (%) (Auto) 31 % (24-48) Monocytes (%) (Auto) 10 % (0-9) Eosinophils (%) (Auto) 1 % (0-3) Basophils (%) (Auto) 1 % (0-3) Neutrophils # (Auto) 2.2 x10^3/uL (1.8-7.7) Lymphocytes # (Auto) 1.2 x10^3/uL (1.0-4.8) Monocytes # (Auto) 0.4 x10^3/uL (0.0-1.1) Eosinophils # (Auto) 0.0 x10^3/uL (0.0-0.7) Basophils # (Auto) 0.0 x10^3/uL (0.0-0.2) Absolute Reticulocyte Count 0.037 x10^6/uL (0.020-0.120) Percent Reticulocyte Count 1.1 % (0.5-2.3) Immature Reticulocyte Fraction 0.38 (0.20-0.60) Assessment and Plan Assessmemt and Plan Problems Medical Problems: (1) Chest pain Status: Acute (2) Person under investigation for COVID-19 Status: Acute What Is a Power of Liquor Department Manager? A power of title attorney (POA) is a legal document giving one person (the agent or [id number]) the power to act for another person (the principal). The agent can have broad legal authority or limited authority to make legal decisions about the principal's property, finances or medical care. The power of title attorney is frequently used in the event of a principal's illness or disability, or when the principal can't be present to sign necessary legal documents for financial transactions. A power of title attorney can end for a number of reasons, such as when the principal dies, the principal revokes it, a court invalidates it, the principal divorces their spouse, who happens to be the agent, or the agent can no longer carry out the outlined responsibilities. Conventional POAs lapse when the creator becomes incapacitated, but a durable POA remains in force to enable the agent to manage the creators affairs, and a springing POA comes into effect only if and when the creator of the POA becomes incapacitated. A medical or healthcare POA enables an agent to make medical decisions on behalf of an incapacitated person. [employer] A power of title attorney (POA) is a legal document giving one person, the agent or [id number] the power to act for another person, the principal. The agent can have broad legal authority or limited authority to make decisions about the principal's property, finances or medical care. The power of title attorney is often used when a principal becomes ill or disabled, or when they can't be present to sign necessary legal documents for financial transactions. Understanding Power of Liquor Department Manager A power of title attorney should be considered when planning for long-term care. There are different types of POAs that fall under either a general power of title attorney or limited power of title attorney. A general power of title attorney acts on behalf of the principal in any and all matters, as allowed by the state. The agent under a general POA agreement may be authorized to take care of issues such as handling bank accounts, signing checks, selling property and assets like stocks, f A limited power of title attorney gives the agent the power to act on behalf of the principal in specific matters or events. For example, the limited POA may explicitly state that the agent is only allowed to manage the principal's ret irement accounts. A limited POA may also be limited to a specific period of time (e.g., if the principal will be out of the country for, say, two years). Most hunt of title attorney documents allow an agent to represent the principal in all property and financial matters as long as the principals mental state of mind is good. If a situation occurs where the principal becomes incapable of making decisions for him or herself, the POA agreement would automatically end. However, someone who wants the POA to remain in effect after the persons health deteriorates would need to sign a durable power of title attorney (DPOA). Important:A person appointed as power of title attorney is not necessarily an title attorney. The person could just be a trusted family member, friend, or acquaintance. Understanding the Durable Power of Liquor Department Manager (DPOA) The durable power of title attorney (DPOA) remains in control of certain legal, property or financial matters specifically spelled out in the agreement, even after the principal becomes mentally incapacitated. While a DPOA can pay medical bills on behalf of the principal, the durable agent cannot make decisions r elated to the principal's health (e.g., taking the principal off life support is not up to a DPOA). The principal can sign a durable power of title attorney for health care, or healthcare power of title attorney (HCPA), if he wants an agent to have the power to make health-related decisions. This document also called a healthcare proxy, outlines the principals consent to give the agent POA privileges in the event of an unfortunate medical condition. The durable POA for healthcare is legally bound to oversee medical care decisions on behalf of the principal. Comment Review of Relevant I have reviewed the following items perfecto (where applicable) has been applied. Labs Laboratory Tests Test 05/11/20 17:10 05/11/20 20:20 05/11/20 23:10 05/12/20 05:35 White Blood Count 3.6 x10^3/uL (4.0-11.0) 3.0 x10^3/uL (4.0-11.0) Red Blood Count 4.23 x10^6/uL (3.50-5.40) 4.73 x10^6/uL (3.50-5.40) Hemoglobin 12.6 g/dL (12.0-15.5) 14.1 g/dL (12.0-15.5) Hematocrit 38.5 % (36.0-47.0) 43.3 % (36.0-47.0) Mean Corpuscular Volume 91 fL (79-100) 92 fL (79-100) Mean Corpuscular Hemoglobin 30 pg (25-35) 30 pg (25-35) Mean Corpuscular Hemoglobin Concent 33 g/dL (31-37) 33 g/dL (31-37) Red Cell Distribution Width 13.6 % (11.5-14.5) 14.0 % (11.5-14.5) Platelet Count 177 x10^3/uL (140-400) 154 x10^3/uL (140-400) Neutrophils (%) (Auto) 72 % (31-73) 81 % (31-73) Lymphocytes (%) (Auto) 20 % (24-48) 18 % (24-48) Monocytes (%) (Auto) 6 % (0-9) 1 % (0-9) Eosinophils (%) (Auto) 2 % (0-3) 0 % (0-3) Basophils (%) (Auto) 1 % (0-3) 0 % (0-3) Neutrophils # (Auto) 2.6 x10^3/uL (1.8-7.7) 2.4 x10^3/uL (1.8-7.7) Lymphocytes # (Auto) 0.7 x10^3/uL (1.0-4.8) 0.5 x10^3/uL (1.0-4.8) Monocytes # (Auto) 0.2 x10^3/uL (0.0-1.1) 0.0 x10^3/uL (0.0-1.1) Eosinophils # (Auto) 0.1 x10^3/uL (0.0-0.7) 0.0 x10^3/uL (0.0-0.7) Basophils # (Auto) 0.0 x10^3/uL (0.0-0.2) 0.0 x10^3/uL (0.0-0.2) Prothrombin Time 12.3 SEC (11.7-14.0) Prothromb Time International Ratio 1.0 (0.8-1.1) Sodium Level 141 mmol/L (136-145) 141 mmol/L (136-145) Potassium Level 3.4 mmol/L (3.5-5.1) 4.1 mmol/L (3.5-5.1) Chloride Level 105 mmol/L (98-107) 101 mmol/L (98-107) Carbon Dioxide Level 26 mmol/L (21-32) 27 mmol/L (21-32) Anion Gap 10 (6-14) 13 (6-14) Blood Urea Nitrogen 30 mg/dL (7-20) 28 mg/dL (7-20) Creatinine 1.0 mg/dL (0.6-1.0) 0.9 mg/dL (0.6-1.0) Estimated GFR (Cockcroft-Gault) 68.2 77.0 BUN/Creatinine Ratio 30 (6-20) Glucose Level 129 mg/dL (70-99) 121 mg/dL (70-99) Calcium Level 9.5 mg/dL (8.5-10.1) 10.4 mg/dL (8.5-10.1) Magnesium Level 2.1 mg/dL (1.8-2.4) Total Bilirubin 0.2 mg/dL (0.2-1.0) Aspartate Amino Transf (AST/SGOT) 32 U/L (15-37) Alanine Aminotransferase (ALT/SGPT) 38 U/L (14-59) Alkaline Phosphatase 134 U/L (46-116) Troponin I Quantitative < 0.017 ng/mL (0.000-0.055) < 0.017 ng/mL (0.000-0.055) 0.017 ng/mL (0.000-0.055) KD-Elb-Q-Type Natriuretic Peptide 37 pg/mL (0-124) Total Protein 8.8 g/dL (6.4-8.2) Albumin 3.6 g/dL (3.4-5.0) Albumin/Globulin Ratio 0.7 (1.0-1.7) Thyroid Stimulating Hormone (TSH) 1.188 uIU/mL (0.358-3.74) Test 05/13/20 04:45 White Blood Count 3.8 x10^3/uL (4.0-11.0) Red Blood Count 3.38 x10^6/uL (3.50-5.70) Hemoglobin 10.1 g/dL (12.0-15.5) Hematocrit 31.4 % (36.0-47.0) Mean Corpuscular Volume 91 fL (79-100) Mean Corpuscular Hemoglobin 29 pg (25-35) Mean Corpuscular Hemoglobin Concent 32 g/dL (31-37) Red Cell Distribution Width 13.8 % (11.5-14.5) Platelet Count 154 x10^3/uL (140-400) Neutrophils (%) (Auto) 57 % (31-73) Lymphocytes (%) (Auto) 31 % (24-48) Monocytes (%) (Auto) 10 % (0-9) Eosinophils (%) (Auto) 1 % (0-3) Basophils (%) (Auto) 1 % (0-3) Neutrophils # (Auto) 2.2 x10^3/uL (1.8-7.7) Lymphocytes # (Auto) 1.2 x10^3/uL (1.0-4.8) Monocytes # (Auto) 0.4 x10^3/uL (0.0-1.1) Eosinophils # (Auto) 0.0 x10^3/uL (0.0-0.7) Basophils # (Auto) 0.0 x10^3/uL (0.0-0.2) Absolute Reticulocyte Count 0.037 x10^6/uL (0.020-0.120) Percent Reticulocyte Count 1.1 % (0.5-2.3) Immature Reticulocyte Fraction 0.38 (0.20-0.60) Laboratory Tests Test 05/13/20 04:45 White Blood Count 3.8 x10^3/uL (4.0-11.0) Red Blood Count 3.38 x10^6/uL (3.50-5.70) Hemoglobin 10.1 g/dL (12.0-15.5) Hematocrit 31.4 % (36.0-47.0) Mean Corpuscular Volume 91 fL (79-100) Mean Corpuscular Hemoglobin 29 pg (25-35) Mean Corpuscular Hemoglobin Concent 32 g/dL (31-37) Red Cell Distribution Width 13.8 % (11.5-14.5) Platelet Count 154 x10^3/uL (140-400) Neutrophils (%) (Auto) 57 % (31-73) Lymphocytes (%) (Auto) 31 % (24-48) Monocytes (%) (Auto) 10 % (0-9) Eosinophils (%) (Auto) 1 % (0-3) Basophils (%) (Auto) 1 % (0-3) Neutrophils # (Auto) 2.2 x10^3/uL (1.8-7.7) Lymphocytes # (Auto) 1.2 x10^3/uL (1.0-4.8) Monocytes # (Auto) 0.4 x10^3/uL (0.0-1.1) Eosinophils # (Auto) 0.0 x10^3/uL (0.0-0.7) Basophils # (Auto) 0.0 x10^3/uL (0.0-0.2) Absolute Reticulocyte Count 0.037 x10^6/uL (0.020-0.120) Percent Reticulocyte Count 1.1 % (0.5-2.3) Immature Reticulocyte Fraction 0.38 (0.20-0.60) Microbiology 05/11/20 Blood Culture - Preliminary, Resulted NO GROWTH AFTER 1 DAY Medications Current Medications Aspirin (Yoni Aspirin) 325 mg 1X ONCE PO Last administered on 05/11/20at 18:42; Start 05/11/20 at 18:00; Stop 05/11/20 at 18:01; Status DC Nitroglycerin (Nitrostat) 0.4 mg PRN Q5MIN PRN SL CP RATING > 1/10; Start 05/11/20 at 17:30; Stop 05/12/20 at 17:29; Status DC Morphine Sulfate (Morphine Sulfate) 2 mg PRN Q15MIN PRN IV/SQ PAIN GREATER THAN 3/10 Last administered on 05/11/20at 18:43; Start 05/11/20 at 17:30; Stop 05/12/20 at 17:29; Status DC Ondansetron HCl (Zofran) 4 mg PRN Q8HRS PRN IV NAUSEA/VOMITING; Start 05/11/20 at 21:00; Stop 05/12/20 at 20:59; Status DC Nitroglycerin (Nitrostat) 0.4 mg PRN Q5MIN PRN SL CHEST PAIN; Start 05/11/20 at 21:00; Stop 05/12/20 at 20:59; Status DC Azithromycin 250 ml @ 250 mls/hr 1X ONCE IV ; Start 05/11/20 at 21:00; Stop 05/11/20 at 21:59; Status DC Levofloxacin/ Dextrose 100 ml @ 100 mls/hr 1X ONCE IV Last administered on 05/11/20at 22:35; Start 05/11/20 at 21:00; Stop 05/11/20 at 21:59; Status DC Methylprednisolone Sodium Succinate (SOLU-Medrol 125MG VIAL) 125 mg 1X ONCE IV Last administered on 05/11/20at 22:35; Start 05/11/20 at 21:00; Stop 05/11/20 at 21:04; Status DC Benzonatate (Tessalon Perle) 100 mg TID PO Last administered on 05/13/20at 10:02; Start 05/12/20 at 10:00 Carbamazepine (TEGretol) 200 mg BID PO Last administered on 05/13/20at 10:02; Start 05/12/20 at 10:00 Diclofenac Sodium (Voltaren) 1 nicola QID TP Last administered on 05/12/20at 19:52; Start 05/12/20 at 10:00 EZETIMIBE (Zetia) 10 mg DAILY PO Last administered on 05/13/20at 10:02; Start 05/12/20 at 10:00 Ferrous Sulfate (Feosol) 325 mg DAILY08 PO Last administered on 05/13/20at 10:02; Start 05/12/20 at 10:00 Acetaminophen/ Hydrocodone Bitart (Lortab 7.5/325) 1 tab PRN Q6HRS PRN PO MODERATE PAIN Last administered on 05/12/20at 18:05; Start 05/12/20 at 09:15 Lidocaine (Lidoderm) 1 patch PRN DAILY PRN TP TOPICAL PAIN; Start 05/12/20 at 09:15 Losartan Potassium (Cozaar) 50 mg DAILY PO Last administered on 05/13/20at 10:01; Start 05/12/20 at 10:00 Naproxen (Naprosyn) 500 mg PRN BID PRN PO MILD PAIN 1-3 Last administered on 05/12/20 19:51; Start 05/12/20 at 09:15 Polyethylene Glycol (miraLAX PACKET) 17 gm DAILY PO Last administered on 05/13/20 10:02; Start 05/12/20 at 10:00 Potassium Chloride (Klor-Con) 10 meq TIDWMEALS PO Last administered on 05/13/20 10:01; Start 05/12/20 at 12:00 Potassium Chloride (Klor-Con) 10 meq TID PO ; Start 05/12/20 at 14:00; Status UNV Senna/Docusate Sodium (Senna Plus) 2 tab QHS PO Last administered on 05/12/20 19:52; Start 05/12/20 at 21:00 Simvastatin (Zocor) 10 mg QHS PO Last administered on 05/12/20 19:51; Start 05/12/20 at 21:00 Albuterol Sulfate (Ventolin Neb Soln) 2.5 mg PRN Q6HRS PRN NEB SHORTNESS OF BREATH; Start 05/12/20 at 09:15 Levofloxacin/ Dextrose 100 ml @ 100 mls/hr Q24H IV Last administered on 05/12/20 18:04; Start 05/12/20 at 17:00 Lorazepam (Ativan Inj) 2 mg PRN Q4HRS PRN IM/IV ANXIETY / AGITATION Last administered on 05/12/20 23:27; Start 05/12/20 at 22:45 Haloperidol Lactate (Haldol Inj) 5 mg PRN Q4HRS PRN IM ANXIETY / AGITATION; Start 05/12/20 at 22:45 Active Scripts Active Doxycycline Hyclate 100 Mg Capsule 1 Cap PO BID Magnesium Citrate 296 Ml Solution 296 Ml PO ONCE [place] 5-325 Tablet (Acetaminophen/Hydrocodone Bitart) 1 Each Tablet 1 Tab PO PRN Q6HRS PRN K-Tab ER (Potassium Chloride) 20 Meq Tablet.er 20 Meq PO DAILY 14 Days Valium (Diazepam) 5 Mg Tablet 5 Mg PO BID Orphenadrine Citrate 100 Mg Tablet.er 100 Mg PO BID PRN Valium (Diazepam) 5 Mg Tablet 5 Mg PO DAILY Potassium Chloride (Potassium Chloride) 10 Meq Tab.sr.24h 10 Meq PO TID Voltaren (Diclofenac Sodium) 100 Gm Gel..gram. 1 Gm TP QID Naprosyn (Naproxen) 500 Mg Tablet 500 Mg PO PRN BID PRN 30 Days Cozaar (Losartan Potassium) 50 Mg Tablet 50 Mg PO DAILY 30 Days Polyethylene Glycol 3350 17 Gm Powd.pack 17 Gm PO DAILY 30 Days Tessalon Perle (Benzonatate) 100 Mg Capsule 1 Cap PO TID Proair Respiclick (Albuterol Sulfate) 90 Mcg Aer.pow.ba 1 Puff IH PRN Q6HRS PRN Reported Mirtazapine 30 Mg Tablet 1 Tab PO QHS Hydrocodone-Apap 7.5-325 (Hydrocodone Bit/Acetaminophen) 1 Each Tablet 1 Tab PO PRN Q6HRS PRN Baclofen 20 Mg Tablet 20 Mg PO TID Omeprazole 20 Mg Capsule.dr 20 Mg PO DAILY Lidoderm (Lidocaine) 700 Mg Adh..patch 1 Patch TP PRN Ferrous Sulfate 325 Mg Tablet 325 Mg PO DAILY Klor-Con 10 (Potassium Chloride) 10 Meq Tablet.er 1 Tab PO TIDWMEALS Zetia (Ezetimibe) 10 Mg Tablet 1 Tab PO DAILY Senexon-S Tablet (Sennosides/Docusate Sodium) 1 Each Tablet 2 Each PO QHS Simvastatin 10 Mg Tablet 1 Tab PO QHS Carbamazepine 200 Mg Tablet 200 Mg PO BID Hydrochlorothiazide Tablet (Hydrochlorothiazide) 12.5 Mg Tablet 25 Mg PO DAILY FENTANYL 25mcg/hr (Fentanyl) 1 Each Patch.td72 1 Patch TD Q72H Vitals/I & O Vital Sign - Last 24 Hours 05/12/20 05/12/20 05/12/20 05/12/20 10:58 11:00 11:41 15:00 Temp 97.4 98.0 97.4 98.0 Pulse 72 79 Resp 18 18 B/P (MAP) 130/68 (88) 126/63 (84) Pulse Ox 100 100 95 O2 Delivery Room Air Room Air Room Air Room Air 05/12/20 05/12/20 05/12/20 05/12/20 18:05 19:00 19:05 20:00 Temp 98.0 98.0 Pulse 96 Resp 17 18 B/P (MAP) 126/84 (98) Pulse Ox 100 95 O2 Delivery Room Air Room Air Room Air Room Air 05/12/20 05/13/20 05/13/20 05/13/20 23:00 03:00 07:00 10:01 Temp 97.3 98.9 97.8 97.3 98.9 97.8 Pulse 97 69 74 95 Resp 18 16 16 B/P (MAP) 147/90 (109) 108/59 (75) 119/62 (81) 119/62 Pulse Ox 100 100 97 O2 Delivery Room Air Room Air Intake and Output 05/12/20 05/12/20 05/13/20 15:00 23:00 07:00 Intake Total 560 ml 240 ml Output Total 250 ml Balance 310 ml 240 ml Justicifation of Admission Dx: Justifications for Admission: Justification of Admission Dx: Yes (chest pain, placement) Cellulitis: Cellulitis SCOTT LEWIS MD May 13, 2020 10:09
[2020-05-13 11:05] VITALS: BP 133/65
--- NOTE | 2020-05-13 13:36 | PDOC2 ---
KATARZYNA VASQUEZ JUANY 05/13/20 1335: CARDIAC CONSULT DATE OF CONSULT Date of Consult DATE: 05/13/20 TIME: 13:31 REASON FOR CONSULT Reason for Consult: Chest pain REFERRING PHYSICIAN Referring Physician: Esther Pires APRN SOURCE Source: Chart review, Patient HISTORY OF PRESENT ILLNESS HISTORY OF PRESENT ILLNESS This is a 60 yo female who presented secondary to chest pain. Patient has a history of CVA with right hemiparesis and aphasia. Unable to expressive details of chest pain. When asked she currently has chest pain, she nods her head no. AMI ruled out. PAST MEDICAL HISTORY Cardiovascular: HTN CENTRAL NERVOUS SYSTEM: CVA GI: GERD Heme/Onc: Cancer (breast ) PAST SURGICAL HISTORY Past Surgical History: Other (right mastectomy ) FAMILY HISTORY Family History: Heart Disease SOCIAL HISTORY Smoke: No ALCOHOL: none Drugs: None Lives: with Family CURRENT MEDICATIONS CURRENT MEDICATIONS Current Medications Medications (Trade) Dose Ordered Sig/Becky Route PRN Reason Start Time Stop Time Status Last Admin Dose Admin Senna/Docusate Sodium (Senna Plus) 2 tab QHS PO 05/12/20 21:00 05/12/20 19:52 Simvastatin (Zocor) 10 mg QHS PO 05/12/20 21:00 05/12/20 19:51 Levofloxacin/ Dextrose 100 ml @ 100 mls/hr Q24H IV 05/12/20 17:00 05/12/20 18:04 Lorazepam (Ativan Inj) 2 mg PRN Q4HRS PRN IM/IV ANXIETY /AGITATION, 1ST CHOICE 05/12/20 22:45 05/12/20 23:27 ALLERGIES ALLERGIES: Coded Allergies: ceftriaxone (Verified Allergy, Intermediate, SWELLING,HIVES, 10/16/17) ROS Review of System unobtainable due to expressive aphasia PHYSICAL EXAM General: Alert HEENT: Atraumatic, Mucous membr. moist/pink Lungs: Clear to auscultation Heart: Regular rate Abdomen: Soft, No tenderness Extremities: No edema, Normal pulses Skin: No significant lesion Neuro: Other (expressive aphasia, right hemiparesis ) Psych/Mental Status: Other (unable to assess ) VITALS/I&O VITALS/I&O: Vital Signs Date Time Temp Pulse Resp B/P (MAP) Pulse Ox O2 Delivery O2 Flow Rate FiO2 05/13/20 11:05 97.3 90 23 133/65 (87) 97 Room Air 97.3 I & O 05/12/20 05/12/20 05/13/20 14:59 22:59 06:59 Intake Total 560 ml 240 ml Output Total 250 ml Balance 310 ml 240 ml LABS Lab: Laboratory Tests Test 05/13/20 04:45 White Blood Count 3.8 x10^3/uL (4.0-11.0) L Red Blood Count 3.38 x10^6/uL (3.50-5.70) L Hemoglobin 10.1 g/dL (12.0-15.5) L Hematocrit 31.4 % (36.0-47.0) L Mean Corpuscular Volume 91 fL (79-100) Mean Corpuscular Hemoglobin 29 pg (25-35) Mean Corpuscular Hemoglobin Concent 32 g/dL (31-37) Red Cell Distribution Width 13.8 % (11.5-14.5) Platelet Count 154 x10^3/uL (140-400) Neutrophils (%) (Auto) 57 % (31-73) Lymphocytes (%) (Auto) 31 % (24-48) Monocytes (%) (Auto) 10 % (0-9) H Eosinophils (%) (Auto) 1 % (0-3) Basophils (%) (Auto) 1 % (0-3) Neutrophils # (Auto) 2.2 x10^3/uL (1.8-7.7) Lymphocytes # (Auto) 1.2 x10^3/uL (1.0-4.8) Monocytes # (Auto) 0.4 x10^3/uL (0.0-1.1) Eosinophils # (Auto) 0.0 x10^3/uL (0.0-0.7) Basophils # (Auto) 0.0 x10^3/uL (0.0-0.2) Absolute Reticulocyte Count 0.037 x10^6/uL (0.020-0.120) Percent Reticulocyte Count 1.1 % (0.5-2.3) Immature Reticulocyte Fraction 0.38 (0.20-0.60) Laboratory Tests 05/13/20 04:45 ASSESSMENT/PLAN ASSESSMENT/PLAN 1. Chest pain; AMI ruled out. Details unknown due to expressive aphasia 2. Hypertension; controlled 3. H/o CVA with right hemiparesis and aphasia 4. Leukopenia Recommendations Secondary prevention Continue statin. Add ASA Baseline echo to assess LV systolic function. This can be conducted on an outpatient basis Plan for LTC facility upon discharge as family can no longer care for her ZI PRATHER MD 05/13/20 1706: CARDIAC CONSULT ASSESSMENT/PLAN ASSESSMENT/PLAN Patient seen and evaluated I agree with our nurse practitioners assessment and plan as above. Chest pain. No acute infarct. Difficult to quantify secondary to the patient's expressive aphasia. We will continue present medications. Will check an outpatient echocardiogram. Hypertension. Controlled. Continue present treatment. History of a CVA with right hemiparesis and aphasia. Continue present treatment as per the primary service. Thank you for allowing us to participate in the care of your patient. KATARZYNA VASQUEZ APRN May 13, 2020 13:35 ZI PRATHER MD May 13, 2020 17:06
[2020-05-13 14:02] LABS: CHOLESTEROL/HDL RATIO 1.9
--- NOTE | 2020-05-13 14:46 | PDOC ---
PULMONARY PROGRESS NOTES DATE: 05/13/20 TIME: 14:45 Vitals Vital Signs Date Time Temp Pulse Resp B/P (MAP) Pulse Ox O2 Delivery O2 Flow Rate FiO2 05/13/20 11:05 97.3 90 23 133/65 (87) 97 Room Air 97.3 Labs Laboratory Tests Test 05/11/20 17:10 05/11/20 20:20 05/11/20 23:10 05/12/20 05:35 White Blood Count 3.6 x10^3/uL (4.0-11.0) 3.0 x10^3/uL (4.0-11.0) Red Blood Count 4.23 x10^6/uL (3.50-5.40) 4.73 x10^6/uL (3.50-5.40) Hemoglobin 12.6 g/dL (12.0-15.5) 14.1 g/dL (12.0-15.5) Hematocrit 38.5 % (36.0-47.0) 43.3 % (36.0-47.0) Mean Corpuscular Volume 91 fL (79-100) 92 fL (79-100) Mean Corpuscular Hemoglobin 30 pg (25-35) 30 pg (25-35) Mean Corpuscular Hemoglobin Concent 33 g/dL (31-37) 33 g/dL (31-37) Red Cell Distribution Width 13.6 % (11.5-14.5) 14.0 % (11.5-14.5) Platelet Count 177 x10^3/uL (140-400) 154 x10^3/uL (140-400) Neutrophils (%) (Auto) 72 % (31-73) 81 % (31-73) Lymphocytes (%) (Auto) 20 % (24-48) 18 % (24-48) Monocytes (%) (Auto) 6 % (0-9) 1 % (0-9) Eosinophils (%) (Auto) 2 % (0-3) 0 % (0-3) Basophils (%) (Auto) 1 % (0-3) 0 % (0-3) Neutrophils # (Auto) 2.6 x10^3/uL (1.8-7.7) 2.4 x10^3/uL (1.8-7.7) Lymphocytes # (Auto) 0.7 x10^3/uL (1.0-4.8) 0.5 x10^3/uL (1.0-4.8) Monocytes # (Auto) 0.2 x10^3/uL (0.0-1.1) 0.0 x10^3/uL (0.0-1.1) Eosinophils # (Auto) 0.1 x10^3/uL (0.0-0.7) 0.0 x10^3/uL (0.0-0.7) Basophils # (Auto) 0.0 x10^3/uL (0.0-0.2) 0.0 x10^3/uL (0.0-0.2) Prothrombin Time 12.3 SEC (11.7-14.0) Prothromb Time International Ratio 1.0 (0.8-1.1) Sodium Level 141 mmol/L (136-145) 141 mmol/L (136-145) Potassium Level 3.4 mmol/L (3.5-5.1) 4.1 mmol/L (3.5-5.1) Chloride Level 105 mmol/L (98-107) 101 mmol/L (98-107) Carbon Dioxide Level 26 mmol/L (21-32) 27 mmol/L (21-32) Anion Gap 10 (6-14) 13 (6-14) Blood Urea Nitrogen 30 mg/dL (7-20) 28 mg/dL (7-20) Creatinine 1.0 mg/dL (0.6-1.0) 0.9 mg/dL (0.6-1.0) Estimated GFR (Cockcroft-Gault) 68.2 77.0 BUN/Creatinine Ratio 30 (6-20) Glucose Level 129 mg/dL (70-99) 121 mg/dL (70-99) Calcium Level 9.5 mg/dL (8.5-10.1) 10.4 mg/dL (8.5-10.1) Magnesium Level 2.1 mg/dL (1.8-2.4) Total Bilirubin 0.2 mg/dL (0.2-1.0) Aspartate Amino Transf (AST/SGOT) 32 U/L (15-37) Alanine Aminotransferase (ALT/SGPT) 38 U/L (14-59) Alkaline Phosphatase 134 U/L (46-116) Troponin I Quantitative < 0.017 ng/mL (0.000-0.055) < 0.017 ng/mL (0.000-0.055) 0.017 ng/mL (0.000-0.055) DD-Rcf-A-Type Natriuretic Peptide 37 pg/mL (0-124) Total Protein 8.8 g/dL (6.4-8.2) Albumin 3.6 g/dL (3.4-5.0) Albumin/Globulin Ratio 0.7 (1.0-1.7) Thyroid Stimulating Hormone (TSH) 1.188 uIU/mL (0.358-3.74) Coronavirus (PCR) Not detected (Not Detected) Test 05/13/20 04:45 White Blood Count 3.8 x10^3/uL (4.0-11.0) Red Blood Count 3.38 x10^6/uL (3.50-5.70) Hemoglobin 10.1 g/dL (12.0-15.5) Hematocrit 31.4 % (36.0-47.0) Mean Corpuscular Volume 91 fL (79-100) Mean Corpuscular Hemoglobin 29 pg (25-35) Mean Corpuscular Hemoglobin Concent 32 g/dL (31-37) Red Cell Distribution Width 13.8 % (11.5-14.5) Platelet Count 154 x10^3/uL (140-400) Neutrophils (%) (Auto) 57 % (31-73) Lymphocytes (%) (Auto) 31 % (24-48) Monocytes (%) (Auto) 10 % (0-9) Eosinophils (%) (Auto) 1 % (0-3) Basophils (%) (Auto) 1 % (0-3) Neutrophils # (Auto) 2.2 x10^3/uL (1.8-7.7) Lymphocytes # (Auto) 1.2 x10^3/uL (1.0-4.8) Monocytes # (Auto) 0.4 x10^3/uL (0.0-1.1) Eosinophils # (Auto) 0.0 x10^3/uL (0.0-0.7) Basophils # (Auto) 0.0 x10^3/uL (0.0-0.2) Absolute Reticulocyte Count 0.037 x10^6/uL (0.020-0.120) Percent Reticulocyte Count 1.1 % (0.5-2.3) Immature Reticulocyte Fraction 0.38 (0.20-0.60) Triglycerides Level 53 mg/dL (0-150) Cholesterol Level 177 mg/dL (0-200) LDL Cholesterol, Calculated 74 mg/dL (0-100) VLDL Cholesterol, Calculated 11 mg/dL (0-40) Non-HDL Cholesterol Calculated 85 mg/dL (0-129) HDL Cholesterol 92 mg/dL (40-60) Cholesterol/HDL Ratio 1.9 Laboratory Tests Test 05/13/20 04:45 White Blood Count 3.8 x10^3/uL (4.0-11.0) Red Blood Count 3.38 x10^6/uL (3.50-5.70) Hemoglobin 10.1 g/dL (12.0-15.5) Hematocrit 31.4 % (36.0-47.0) Mean Corpuscular Volume 91 fL (79-100) Mean Corpuscular Hemoglobin 29 pg (25-35) Mean Corpuscular Hemoglobin Concent 32 g/dL (31-37) Red Cell Distribution Width 13.8 % (11.5-14.5) Platelet Count 154 x10^3/uL (140-400) Neutrophils (%) (Auto) 57 % (31-73) Lymphocytes (%) (Auto) 31 % (24-48) Monocytes (%) (Auto) 10 % (0-9) Eosinophils (%) (Auto) 1 % (0-3) Basophils (%) (Auto) 1 % (0-3) Neutrophils # (Auto) 2.2 x10^3/uL (1.8-7.7) Lymphocytes # (Auto) 1.2 x10^3/uL (1.0-4.8) Monocytes # (Auto) 0.4 x10^3/uL (0.0-1.1) Eosinophils # (Auto) 0.0 x10^3/uL (0.0-0.7) Basophils # (Auto) 0.0 x10^3/uL (0.0-0.2) Absolute Reticulocyte Count 0.037 x10^6/uL (0.020-0.120) Percent Reticulocyte Count 1.1 % (0.5-2.3) Immature Reticulocyte Fraction 0.38 (0.20-0.60) Triglycerides Level 53 mg/dL (0-150) Cholesterol Level 177 mg/dL (0-200) LDL Cholesterol, Calculated 74 mg/dL (0-100) VLDL Cholesterol, Calculated 11 mg/dL (0-40) Non-HDL Cholesterol Calculated 85 mg/dL (0-129) HDL Cholesterol 92 mg/dL (40-60) Cholesterol/HDL Ratio 1.9 Medications Active Scripts Medications Dose Route/Sig Max Daily Dose Days Date Category Mirtazapine 30 Mg Tablet 1 Tab PO QHS 05/12/20 Reported Doxycycline Hyclate 100 Mg Capsule 1 Cap PO BID 03/11/20 Rx Magnesium Citrate 296 Ml Solution 296 Ml PO ONCE 12/27/19 Rx [place] 5-325 Tablet (Acetaminophen/Hydrocodone Bitart) 1 Each Tablet 1 Tab PO PRN Q6HRS PRN 04/25/19 Rx K-Tab ER (Potassium Chloride) 20 Meq Tablet.er 20 Meq PO DAILY 14 04/16/19 Rx Valium (Diazepam) 5 Mg Tablet 5 Mg PO BID 04/02/19 Rx Orphenadrine Citrate 100 Mg Tablet.er 100 Mg PO BID PRN 02/16/19 Rx Valium (Diazepam) 5 Mg Tablet 5 Mg PO DAILY 01/22/19 Rx Potassium Chloride (Potassium Chloride) 10 Meq Tab.sr.24h 10 Meq PO TID 12/05/18 Rx Voltaren (Diclofenac Sodium) 100 Gm Gel..gram. 1 Gm TP QID 09/10/18 Rx Naprosyn (Naproxen) 500 Mg Tablet 500 Mg PO PRN BID PRN 30 10/19/17 Rx Cozaar (Losartan Potassium) 50 Mg Tablet 50 Mg PO DAILY 30 10/19/17 Rx Polyethylene Glycol 3350 17 Gm Powd.pack 17 Gm PO DAILY 30 10/19/17 Rx Tessalon Perle (Benzonatate) 100 Mg Capsule 1 Cap PO TID 10/02/17 Rx Proair Respiclick (Albuterol Sulfate) 90 Mcg Aer.pow.ba 1 Puff IH PRN Q6HRS PRN 10/02/17 Rx Hydrocodone-Apap 7.5-325 (Hydrocodone Bit/Acetaminophen) 1 Each Tablet 1 Tab PO PRN Q6HRS PRN 06/26/17 Reported Baclofen 20 Mg Tablet 20 Mg PO TID 06/26/17 Reported Omeprazole 20 Mg Capsule.dr 20 Mg PO DAILY 06/26/17 Reported Lidoderm (Lidocaine) 700 Mg Adh..patch 1 Patch TP PRN 01/07/15 Reported Ferrous Sulfate 325 Mg Tablet 325 Mg PO DAILY 01/07/15 Reported Klor-Con 10 (Potassium Chloride) 10 Meq Tablet.er 1 Tab PO TIDWMEALS 01/07/15 Reported Zetia (Ezetimibe) 10 Mg Tablet 1 Tab PO DAILY 01/07/15 Reported Senexon-S Tablet (Sennosides/Docusate Sodium) 1 Each Tablet 2 Each PO QHS 01/07/15 Reported Simvastatin 10 Mg Tablet 1 Tab PO QHS 01/07/15 Reported Carbamazepine 200 Mg Tablet 200 Mg PO BID 01/07/15 Reported Hydrochlorothiazide Tablet (Hydrochlorothiazide) 12.5 Mg Tablet 25 Mg PO DAILY 01/07/15 Reported FENTANYL 25mcg/hr (Fentanyl) 1 Each Patch.td72 1 Patch TD Q72H 01/07/15 Reported Impression . DICTATED NO WORK UP NEEDE OK TO EMERSON CURRY MD May 13, 2020 14:46
[2020-05-13 15:05] VITALS: BP 131/70
--- NOTE | 2020-05-13 15:06 | PDOC3 ---
Discharge Summary Date of Admission: May 11, 2020 Date of Discharge: May 13, 2020 Follow-Up: 1-2 days Admitting Diagnosis comment: DISCHARGE DX Assessment/Plan Impression: Chest pain/ GERD Right upper lobe infiltrate could be discoid atelectasis or scar. Nodular opacity in the right upper lobe suprahilar space may represent pulmonary infiltrate, LIKELY SCAR Groundglass opacities are nonspecific and likely discoid atelectasis. T2 and T4 vertebral body compression fractures presumably old. remote cva with paresis leukopenia normocytic anemia Person under investigation for COVID-19 neg 05/13 plan ADMITTED trend troponin i consult cardiology consult pulm emperic iv antibiotics dvt prophylaxis resp isolation blood cultures trend troponin i retic 05/13 AGITATED LAST NIGHT, PULLED OUT IV D/W NICOLE ANN TO DISCHARGE DPOA NEEDED, DISCUSSED 17 MIN DPOA ? SISTER D/C PLANNING 33 MIN History of Present Illness History of Present Illness Identification/Chief Complaint Chief Complaint SEEN IN ER , 60 year old female with history of CVA-aphasia, right breast cancer with mastectomy, who presented to the ED 05/11 to be evaluated for chest pain. not verbal, only points to the chest when asked if she has pain. 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 Past Surgical History: Other Additional Past Surgical Histo: ABDOMINAL VERTICAL SURGICAL SCAR, rt masectomy Smoking Status: Never Smoker Alcohol Use: None Drug Use: None, Benzodiazepine fhx HTN Musculoskeletal: Osteoarthritis Family History Family History: Hypertension Social History Smoke: No ALCOHOL: none Drugs: None Vitals Vitals Vital Signs Date Time Temp Pulse Resp B/P (MAP) Pulse Ox O2 Delivery O2 Flow Rate FiO2 05/13/20 10:01 95 119/62 05/13/20 07:00 97.8 16 97 Room Air 97.8 Physical Exam Physical Exam Constitutional: Well developed, well nourished, no acute distress, non-toxic appearance. [] HENT: Normocephalic, atraumatic, bilateral external ears normal, oropharynx moist, no oral exudates, nose normal. [] Eyes: PERRLA, EOMI, conjunctiva normal, no discharge. [] Neck: Normal range of motion, no tenderness, supple, no stridor. [] Cardiovascular:Heart rate regular rhythm, no murmur [] Lungs & Thorax: Bilateral breath sounds clear to auscultation [] Abdomen: Bowel sounds normal, soft, no tenderness, no masses, no pulsatile mass es. [] Skin: Warm, dry, no erythema, no rash. [] Back: No tenderness, no CVA tenderness. [] Extremities: Contracted right upper extremity. Bilateral lower extremities deformed consistent with CVA, no tenderness, no cyanosis, no clubbing, ROM intact, no edema. [] General: Cooperative Breasts: Not examined Abdomen: Soft, No tenderness Rectal Exam: not examined Neuro: Cranial nerves 3-12 NL General: Alert, Cooperative, No acute distress Lungs: Clear Abdomen: Soft, No tenderness Extremities: No cyanosis, No edema Skin: No significant lesion Labs LABS PATIENT: LEXII FAUSTIN ACCOUNT: [id number] : 1960 LOCATION: ER AGE: 60 SEX: F EXAM STATUS: REG ER ORD. PHYSICIAN: MARCK MA APRN REASON: chest pain PROCEDURE: CT CHEST WO CONTRAST CT of the chest without contrast: Clinical History: Reason: chest pain / Spl. Instructions: / History: . Axial helical images of the chest were obtained without contrast. FINDINGS: There is patchy linear opacity in the right upper lobe anteriorly. There are groundglass opacities in the lower lungs. The ascending aorta is borderline enlarged measuring 3.6 cm in diameter. There are T2 and T4 vertebral body compression fractures with impaction of the endplates and loss of stature mild T2 and moderate at C4. There is no mediastinal or hilar lymphadenopathy. Impression: 1. Right upper lobe infiltrate could be discoid atelectasis or scar. 2. Groundglass opacities are nonspecific and likely discoid atelectasis. 3. T2 and T4 vertebral body compression fractures presumably old. End impression PQRS Compliance Statement: One or more of the following individualized dose reduction techniques were utilized for this examination: 1. Automated exposure control 2. Adjustment of the mA and/or kV according to patient size 3. Use of iterative reconstruction technique Electronically signed by: Danny Morales III, MD (05/11/2020 7:48 PM) [facility] FINAL DIAGNOSIS Problems Medical Problems: (1) Chest pain Status: Acute (2) Person under investigation for COVID-19 Status: Acute Brief Hospital Course Ms. Faustin is a 60 old [sex] who presented with [ COUGH, COVID R/O , GERD, CHEST PAIN] CONDITION AT DISCHARGE: Improved Discharge Medications Current Medications Aspirin (Yoni Aspirin) 325 mg 1X ONCE PO Last administered on 05/11/20at 18:42; Start 05/11/20 at 18:00; Stop 05/11/20 at 18:01; Status DC Nitroglycerin (Nitrostat) 0.4 mg PRN Q5MIN PRN SL CP RATING > 1/10; Start 05/11/20 at 17:30; Stop 05/12/20 at 17:29; Status DC Morphine Sulfate (Morphine Sulfate) 2 mg PRN Q15MIN PRN IV/SQ PAIN GREATER THAN 3/10 Last administered on 05/11/20at 18:43; Start 05/11/20 at 17:30; Stop 05/12/20 at 17:29; Status DC Ondansetron HCl (Zofran) 4 mg PRN Q8HRS PRN IV NAUSEA/VOMITING; Start 05/11/20 at 21:00; Stop 05/12/20 at 20:59; Status DC Nitroglycerin (Nitrostat) 0.4 mg PRN Q5MIN PRN SL CHEST PAIN; Start 05/11/20 at 21:00; Stop 05/12/20 at 20:59; Status DC Azithromycin 250 ml @ 250 mls/hr 1X ONCE IV ; Start 05/11/20 at 21:00; Stop 05/11/20 at 21:59; Status DC Levofloxacin/ Dextrose 100 ml @ 100 mls/hr 1X ONCE IV Last administered on at 22:35; Start 05/11/20 at 21:00; Stop 05/11/20 at 21:59; Status DC Methylprednisolone Sodium Succinate (SOLU-Medrol 125MG VIAL) 125 mg 1X ONCE IV Last administered on 05/11/20at 22:35; Start 05/11/20 at 21:00; Stop 05/11/20 at 21:04; Status DC Benzonatate (Tessalon Perle) 100 mg TID PO Last administered on 05/13/20 14:34; Start 05/12/20 at 10:00 Carbamazepine (TEGretol) 200 mg BID PO Last administered on 05/13/20 10:02; Start 05/12/20 at 10:00 Diclofenac Sodium (Voltaren) 1 nicola QID TP Last administered on 05/13/20 14:34; Start 05/12/20 at 10:00 EZETIMIBE (Zetia) 10 mg DAILY PO Last administered on 05/13/20 10:02; Start 05/12/20 at 10:00 Ferrous Sulfate (Feosol) 325 mg DAILY08 PO Last administered on 05/13/20 10:02; Start 05/12/20 at 10:00 Acetaminophen/ Hydrocodone Bitart (Lortab 7.5/325) 1 tab PRN Q6HRS PRN PO MODERATE PAIN Last administered on 05/12/20 18:05; Start 05/12/20 at 09:15 Lidocaine (Lidoderm) 1 patch PRN DAILY PRN TP TOPICAL PAIN; Start 05/12/20 at 09:15 Losartan Potassium (Cozaar) 50 mg DAILY PO Last administered on 05/13/20 10:01; Start 05/12/20 at 10:00 Naproxen (Naprosyn) 500 mg PRN BID PRN PO MILD PAIN 1-3 Last administered on 05/12/20 19:51; Start 05/12/20 at 09:15 Polyethylene Glycol (miraLAX PACKET) 17 gm DAILY PO Last administered on 05/13/20 10:02; Start 05/12/20 at 10:00 Potassium Chloride (Klor-Con) 10 meq TIDWMEALS PO Last administered on 05/13/20 14:34; Start 05/12/20 at 12:00 Potassium Chloride (Klor-Con) 10 meq TID PO ; Start 05/12/20 at 14:00; Status UNV Senna/Docusate Sodium (Senna Plus) 2 tab QHS PO Last administered on 05/12/20 19:52; Start 05/12/20 at 21:00 Simvastatin (Zocor) 10 mg QHS PO Last administered on 05/12/20 19:51; Start 05/12/20 at 21:00 Albuterol Sulfate (Ventolin Neb Soln) 2.5 mg PRN Q6HRS PRN NEB SHORTNESS OF BREATH; Start 05/12/20 at 09:15 Levofloxacin/ Dextrose 100 ml @ 100 mls/hr Q24H IV Last administered on 05/12/20at 18:04; Start 05/12/20 at 17:00 Lorazepam (Ativan Inj) 2 mg PRN Q4HRS PRN IM/IV ANXIETY /AGITATION, 1ST CHOICE Last administered on 05/12/20at 23:27; Start 05/12/20 at 22:45 Haloperidol Lactate (Haldol Inj) 5 mg PRN Q4HRS PRN IM ANXIETY / AGITATION, 2ND CHOIC; Start 05/12/20 at 22:45 Active Scripts Active Doxycycline Hyclate 100 Mg Capsule 1 Cap PO BID Magnesium Citrate 296 Ml Solution 296 Ml PO ONCE Benton 5-325 Tablet (Acetaminophen/Hydrocodone Bitart) 1 Each Tablet 1 Tab PO PRN Q6HRS PRN K-Tab ER (Potassium Chloride) 20 Meq Tablet.er 20 Meq PO DAILY 14 Days Valium (Diazepam) 5 Mg Tablet 5 Mg PO BID Orphenadrine Citrate 100 Mg Tablet.er 100 Mg PO BID PRN Valium (Diazepam) 5 Mg Tablet 5 Mg PO DAILY Potassium Chloride (Potassium Chloride) 10 Meq Tab.sr.24h 10 Meq PO TID Voltaren (Diclofenac Sodium) 100 Gm Gel..gram. 1 Gm TP QID Naprosyn (Naproxen) 500 Mg Tablet 500 Mg PO PRN BID PRN 30 Days Cozaar (Losartan Potassium) 50 Mg Tablet 50 Mg PO DAILY 30 Days Polyethylene Glycol 3350 17 Gm Powd.pack 17 Gm PO DAILY 30 Days Tessalon Perle (Benzonatate) 100 Mg Capsule 1 Cap PO TID Proair Respiclick (Albuterol Sulfate) 90 Mcg Aer.pow.ba 1 Puff IH PRN Q6HRS PRN Reported Mirtazapine 30 Mg Tablet 1 Tab PO QHS Hydrocodone-Apap 7.5-325 (Hydrocodone Bit/Acetaminophen) 1 Each Tablet 1 Tab PO PRN Q6HRS PRN Baclofen 20 Mg Tablet 20 Mg PO TID Omeprazole 20 Mg Capsule.dr 20 Mg PO DAILY Lidoderm (Lidocaine) 700 Mg Adh..patch 1 Patch TP PRN Ferrous Sulfate 325 Mg Tablet 325 Mg PO DAILY Klor-Con 10 (Potassium Chloride) 10 Meq Tablet.er 1 Tab PO TIDWMEALS Zetia (Ezetimibe) 10 Mg Tablet 1 Tab PO DAILY Senexon-S Tablet (Sennosides/Docusate Sodium) 1 Each Tablet 2 Each PO QHS Simvastatin 10 Mg Tablet 1 Tab PO QHS Carbamazepine 200 Mg Tablet 200 Mg PO BID Hydrochlorothiazide Tablet (Hydrochlorothiazide) 12.5 Mg Tablet 25 Mg PO DAILY FENTANYL 25mcg/hr (Fentanyl) 1 Each Patch.td72 1 Patch TD Q72H Vital Signs Vital Signs Date Time Temp Pulse Resp B/P (MAP) Pulse Ox O2 Delivery O2 Flow Rate FiO2 05/13/20 11:05 97.3 90 23 133/65 (87) 97 Room Air 97.3 Labs Laboratory Tests Test 05/11/20 17:10 05/11/20 20:20 05/11/20 23:10 05/12/20 05:35 White Blood Count 3.6 x10^3/uL (4.0-11.0) 3.0 x10^3/uL (4.0-11.0) Red Blood Count 4.23 x10^6/uL (3.50-5.40) 4.73 x10^6/uL (3.50-5.40) Hemoglobin 12.6 g/dL (12.0-15.5) 14.1 g/dL (12.0-15.5) Hematocrit 38.5 % (36.0-47.0) 43.3 % (36.0-47.0) Mean Corpuscular Volume 91 fL (79-100) 92 fL (79-100) Mean Corpuscular Hemoglobin 30 pg (25-35) 30 pg (25-35) Mean Corpuscular Hemoglobin Concent 33 g/dL (31-37) 33 g/dL (31-37) Red Cell Distribution Width 13.6 % (11.5-14.5) 14.0 % (11.5-14.5) Platelet Count 177 x10^3/uL (140-400) 154 x10^3/uL (140-400) Neutrophils (%) (Auto) 72 % (31-73) 81 % (31-73) Lymphocytes (%) (Auto) 20 % (24-48) 18 % (24-48) Monocytes (%) (Auto) 6 % (0-9) 1 % (0-9) Eosinophils (%) (Auto) 2 % (0-3) 0 % (0-3) Basophils (%) (Auto) 1 % (0-3) 0 % (0-3) Neutrophils # (Auto) 2.6 x10^3/uL (1.8-7.7) 2.4 x10^3/uL (1.8-7.7) Lymphocytes # (Auto) 0.7 x10^3/uL (1.0-4.8) 0.5 x10^3/uL (1.0-4.8) Monocytes # (Auto) 0.2 x10^3/uL (0.0-1.1) 0.0 x10^3/uL (0.0-1.1) Eosinophils # (Auto) 0.1 x10^3/uL (0.0-0.7) 0.0 x10^3/uL (0.0-0.7) Basophils # (Auto) 0.0 x10^3/uL (0.0-0.2) 0.0 x10^3/uL (0.0-0.2) Prothrombin Time 12.3 SEC (11.7-14.0) Prothromb Time International Ratio 1.0 (0.8-1.1) Sodium Level 141 mmol/L (136-145) 141 mmol/L (136-145) Potassium Level 3.4 mmol/L (3.5-5.1) 4.1 mmol/L (3.5-5.1) Chloride Level 105 mmol/L (98-107) 101 mmol/L (98-107) Carbon Dioxide Level 26 mmol/L (21-32) 27 mmol/L (21-32) Anion Gap 10 (6-14) 13 (6-14) Blood Urea Nitrogen 30 mg/dL (7-20) 28 mg/dL (7-20) Creatinine 1.0 mg/dL (0.6-1.0) 0.9 mg/dL (0.6-1.0) Estimated GFR (Cockcroft-Gault) 68.2 77.0 BUN/Creatinine Ratio 30 (6-20) Glucose Level 129 mg/dL (70-99) 121 mg/dL (70-99) Calcium Level 9.5 mg/dL (8.5-10.1) 10.4 mg/dL (8.5-10.1) Magnesium Level 2.1 mg/dL (1.8-2.4) Total Bilirubin 0.2 mg/dL (0.2-1.0) Aspartate Amino Transf (AST/SGOT) 32 U/L (15-37) Alanine Aminotransferase (ALT/SGPT) 38 U/L (14-59) Alkaline Phosphatase 134 U/L (46-116) Troponin I Quantitative < 0.017 ng/mL (0.000-0.055) < 0.017 ng/mL (0.000-0.055) 0.017 ng/mL (0.000-0.055) PB-Ztv-B-Type Natriuretic Peptide 37 pg/mL (0-124) Total Protein 8.8 g/dL (6.4-8.2) Albumin 3.6 g/dL (3.4-5.0) Albumin/Globulin Ratio 0.7 (1.0-1.7) Thyroid Stimulating Hormone (TSH) 1.188 uIU/mL (0.358-3.74) Coronavirus (PCR) Not detected (Not Detected) Test 05/13/20 04:45 White Blood Count 3.8 x10^3/uL (4.0-11.0) Red Blood Count 3.38 x10^6/uL (3.50-5.70) Hemoglobin 10.1 g/dL (12.0-15.5) Hematocrit 31.4 % (36.0-47.0) Mean Corpuscular Volume 91 fL (79-100) Mean Corpuscular Hemoglobin 29 pg (25-35) Mean Corpuscular Hemoglobin Concent 32 g/dL (31-37) Red Cell Distribution Width 13.8 % (11.5-14.5) Platelet Count 154 x10^3/uL (140-400) Neutrophils (%) (Auto) 57 % (31-73) Lymphocytes (%) (Auto) 31 % (24-48) Monocytes (%) (Auto) 10 % (0-9) Eosinophils (%) (Auto) 1 % (0-3) Basophils (%) (Auto) 1 % (0-3) Neutrophils # (Auto) 2.2 x10^3/uL (1.8-7.7) Lymphocytes # (Auto) 1.2 x10^3/uL (1.0-4.8) Monocytes # (Auto) 0.4 x10^3/uL (0.0-1.1) Eosinophils # (Auto) 0.0 x10^3/uL (0.0-0.7) Basophils # (Auto) 0.0 x10^3/uL (0.0-0.2) Absolute Reticulocyte Count 0.037 x10^6/uL (0.020-0.120) Percent Reticulocyte Count 1.1 % (0.5-2.3) Immature Reticulocyte Fraction 0.38 (0.20-0.60) Triglycerides Level 53 mg/dL (0-150) Cholesterol Level 177 mg/dL (0-200) LDL Cholesterol, Calculated 74 mg/dL (0-100) VLDL Cholesterol, Calculated 11 mg/dL (0-40) Non-HDL Cholesterol Calculated 85 mg/dL (0-129) HDL Cholesterol 92 mg/dL (40-60) Cholesterol/HDL Ratio 1.9 Laboratory Tests Test 05/13/20 04:45 White Blood Count 3.8 x10^3/uL (4.0-11.0) Red Blood Count 3.38 x10^6/uL (3.50-5.70) Hemoglobin 10.1 g/dL (12.0-15.5) Hematocrit 31.4 % (36.0-47.0) Mean Corpuscular Volume 91 fL (79-100) Mean Corpuscular Hemoglobin 29 pg (25-35) Mean Corpuscular Hemoglobin Concent 32 g/dL (31-37) Red Cell Distribution Width 13.8 % (11.5-14.5) Platelet Count 154 x10^3/uL (140-400) Neutrophils (%) (Auto) 57 % (31-73) Lymphocytes (%) (Auto) 31 % (24-48) Monocytes (%) (Auto) 10 % (0-9) Eosinophils (%) (Auto) 1 % (0-3) Basophils (%) (Auto) 1 % (0-3) Neutrophils # (Auto) 2.2 x10^3/uL (1.8-7.7) Lymphocytes # (Auto) 1.2 x10^3/uL (1.0-4.8) Monocytes # (Auto) 0.4 x10^3/uL (0.0-1.1) Eosinophils # (Auto) 0.0 x10^3/uL (0.0-0.7) Basophils # (Auto) 0.0 x10^3/uL (0.0-0.2) Absolute Reticulocyte Count 0.037 x10^6/uL (0.020-0.120) Percent Reticulocyte Count 1.1 % (0.5-2.3) Immature Reticulocyte Fraction 0.38 (0.20-0.60) Triglycerides Level 53 mg/dL (0-150) Cholesterol Level 177 mg/dL (0-200) LDL Cholesterol, Calculated 74 mg/dL (0-100) VLDL Cholesterol, Calculated 11 mg/dL (0-40) Non-HDL Cholesterol Calculated 85 mg/dL (0-129) HDL Cholesterol 92 mg/dL (40-60) Cholesterol/HDL Ratio 1.9 Allergies Allergies Coded Allergies Type Severity Reaction Last Updated Verified ceftriaxone Allergy Intermediate SWELLING,HIVES 10/16/17 Yes Disposition/Orders: Other (D/C TO SNF ) Justicifation of Admission Dx: Justifications for Admission: Justification of Admission Dx: Yes (chest pain, placement) Cellulitis: Cellulitis SCOTT LEWIS MD May 13, 2020 15:06
[2020-05-13] MEDS ORDERED: DOXY100C2 PO (15:09)
--- NOTE | 2020-05-13 15:10 | SNU/HH DC ---
DISCHARGE WITH HOME HEALTH DISCHARGE INFORMATION: Final Diagnosis: Problems Medical Problems: (1) Chest pain Status: Acute (2) Person under investigation for COVID-19 Status: Acute Condition on Discharge: Stable CODE STATUS: Code Status: Full HOME HEALTH: Face to Face: I certify this patient is under my care and that I, or a nurse practitioner or physician's health information assistant working with me, had a face to face encounter that meets the physician face to face encounter requirements with this patient on []. Medical Complications: CVA, Other (CHEST PAIN) Fpc For: Admin/Educate Injections, Assess & Educate Safety RN For Eval/Treatment: Yes Physical Therapy For: Evalulation/Treatment Occupational Therapy For: Evaluation/Treatment Speech Language Pathology For: Evaluation/Treatment Home Health Aide For: Self-care SHIPPING MANAGER For: Community Resources Pt Meets Homebound Status: Poor coordination w/ amb., Unsteady balance w/ amb, POST DISCHARGE ORDERS: Activity Instructions for Disc: Resume previous activity, Activity as tolerated DIET AFTER DISCHARGE: Cardiac Wound/Incision Care: No wound care needed CHECKS AFTER DISCHARGE: Checks after discharge: Check blood press - daily TREATMENT/EQUIPMENT ORDERS: Adaptive Equipment Issued: Brace/splint CERTIFICATION STATEMENT: Certification Statement: Certification Statement: Based on the above finding, I certify that this patient is confined to the home and needs intermittent retirement care, physical therapy and/or speech therapy, or continues to need occupational therapy.~ This patient is under my care, and I have initiated the establishment of the plan of care.~ This patient will be followed by myself or a community physician who will periodically review the plan of care. Home Meds Active Scripts Doxycycline Hyclate (DOXYCYCLINE HYCLATE) 100 Mg Capsule, 1 CAP PO BID for COUGH for 7 Days, #14 CAP Prov:SCOTT LEWIS MD 05/13/20 Hydrocodone/Apap 5-325 (NORCO 5-325 TABLET) 1 Each Tablet, 1 TAB PO PRN Q6HRS PRN for PAIN, #10 TAB 0 Refills Prov:MARLO HARDY LOCK STITCH CHANNELER 04/25/19 Diclofenac Sodium (VOLTAREN) 100 Gm Gel..gram., 1 GM TP QID, #100 GM 2 Refills Prov:MARCK MA LOCK STITCH CHANNELER 09/10/18 Naproxen (NAPROSYN) 500 Mg Tablet, 500 MG PO PRN BID PRN for PAIN for 30 Days, #60 TAB Prov:GLENN DESHPANDE MD 10/19/17 Losartan Potassium (COZAAR ) 50 Mg Tablet, 50 MG PO DAILY for 30 Days, #30 TAB Prov:GLENN DESHPANDE MD 10/19/17 Polyethylene Glycol 3350 (POLYETHYLENE GLYCOL 3350) 17 Gm Powd.pack, 17 GM PO DAILY for 30 Days, #30 PKT Prov:GLENN DESHPANDE MD 10/19/17 Benzonatate (TESSALON PERLE) 100 Mg Capsule, 1 CAP PO TID, #30 CAP Prov:MARCK MA LOCK STITCH CHANNELER 10/02/17 Albuterol Sulfate (Proair Respiclick) 90 Mcg Aer.pow.ba, 1 PUFF IH PRN Q6HRS PRN for SHORTNESS OF BREATH, #1 INHALER Prov:MARCK MA LOCK STITCH CHANNELER 10/02/17 Reported Medications Mirtazapine (MIRTAZAPINE) 30 Mg Tablet, 1 TAB PO QHS for UKN, #30 TAB 1 Refill 05/12/20 Baclofen (BACLOFEN) 20 Mg Tablet, 20 MG PO TID 06/26/17 Omeprazole (OMEPRAZOLE) 20 Mg Capsule.dr, 20 MG PO DAILY 06/26/17 Lidocaine (LIDODERM) 700 Mg Adh..patch, 1 PATCH TP PRN for PAIN, PATCH 01/07/15 Ferrous Sulfate (FERROUS SULFATE) 325 Mg Tablet, 325 MG PO DAILY 01/07/15 Potassium Chloride (KLOR-CON 10) 10 Meq Tablet.er, 1 TAB PO TIDWMEALS, #30 TAB 5 Refills 01/07/15 Ezetimibe (ZETIA) 10 Mg Tablet, 1 TAB PO DAILY, #30 TAB 5 Refills 15 Sennosides/Docusate Sodium (SENEXON-S TABLET) 1 Each Tablet, 2 EACH PO QHS 01/07/15 Simvastatin (SIMVASTATIN) 10 Mg Tablet, 1 TAB PO QHS, #30 TAB 5 Refills 01/07/15 Carbamazepine (CARBAMAZEPINE) 200 Mg Tablet, 200 MG PO BID 01/07/15 Discontinued Reported Medications Hydrocodone Bit/Acetaminophen (HYDROCODONE-APAP 7.5-325 ) 1 Each Tablet, 1 TAB PO PRN Q6HRS PRN for PAIN, TAB 0 Refills 06/26/17 Hydrochlorothiazide (HYDROCHLOROTHIAZIDE TABLET) 12.5 Mg Tablet, 25 MG PO DAILY for DIURETIC, TAB 0 Refills 01/07/15 Fentanyl (FENTANYL 25mcg/hr) 1 Each Patch.td72, 1 PATCH TD Q72H, PATCH 01/07/15 Discontinued Scripts Magnesium Citrate (MAGNESIUM CITRATE) 296 Ml Solution, 296 ML PO ONCE, #296 ML Prov:MARLO HARDY APRN 12/27/19 Potassium Chloride (K-Tab ER) 20 Meq Tablet.er, 20 MEQ PO DAILY for 14 Days, #14 TAB.SR Prov:KIRSTEN MCCLELLAN MD 04/16/19 Diazepam (VALIUM) 5 Mg Tablet, 5 MG PO BID, #12 TAB Prov:BERYL SANTIZO 04/02/19 Orphenadrine Citrate (ORPHENADRINE CITRATE) 100 Mg Tablet.er, 100 MG PO BID PRN for MUSCLE SPASMS, #14 Prov:GLENN OAKLEY DO 02/16/19 Diazepam (VALIUM) 5 Mg Tablet, 5 MG PO DAILY for muscle spasm, #5 TAB Prov:DIVYA ARANGO APRN 01/22/19 Potassium Chloride (POTASSIUM CHLORIDE ) 10 Meq Tab.sr.24h, 10 MEQ PO TID, #30 TAB.SR Prov:MARCK MA APRN 12/05/18 SCOTT LEWIS MD May 13, 2020 15:10
--- NOTE | 2020-05-13 15:49 | NUR ---
ESPERANZA following. Spoke with RN and reviewed chart. Pt was from home with family but son reported to RN that pt needs placement in LTC. Spoke with son and the pt's sister and pt was at [facility] in the past. ESPERANZA phoned and faxed a referral to [facility] at [facility] per request of family. Patient Choice of Vendor form completed. Pt COVID negative. Pt on room air. Pt on oral medications as she pulled our her IV. ESPERANZA waiting on answer from facility for transfer to LTC. ESPERANZA following. Addendum: 05/13/20 at 1719 by TYLER MATA Discharge orders in on this pt. Spoke with RN who called pt's son. Pt's son refusing to come get pt for discharge today and stated he wants pt in LTC. Son advised in earlier phone call from this ESPERANZA that pt can be placed into LTC from the community. Addendum: 05/14/20 at 1030 by TYLER MATA Patient transferred to . Update to YAMIL Dobbs who will follow.
--- NOTE | 2020-05-13 17:46 | CONS ---
DATE OF CONSULTATION: 05/13/2020 ATTENDING PHYSICIAN: Dr. Mark. REASON FOR CONSULTATION: The patient is seen in pulmonary consultation at the request of Dr. Mark for abnormal CT chest. HISTORY OF PRESENT ILLNESS: The patient is a 60-year-old with comorbidities, previous CVA with ____-sided upper extremity hemiparesis. She is nonverbal. She presented with chest pain. She has a history of right breast cancer, status post mastectomy. Part of her workup included a CT chest. I personally reviewed the CT, there is right upper lobe infiltrate that I think is mostly related to atelectasis or scarring. There is some minimal ground glass opacities, nonspecific throughout both lung daniel. I was asked to see her in consultation. The patient denies any fever, chills, productive cough, no hemoptysis. No recent emesis. She has no prior history of tobacco use. No history of asthma. She is currently being evaluated for her chest pain by Cardiology. PAST MEDICAL HISTORY: Remarkable for right breast cancer, status post mastectomy, previous CVA with ____ upper extremity hemiparesis, previous seizures, gastroesophageal reflux. PAST SURGICAL HISTORY: Status post mastectomy. She also has an abdominal scar. SOCIAL HISTORY: There is no history of tobacco use. FAMILY HISTORY: Hypertension. REVIEW OF SYSTEMS: Unobtainable secondary to the patient's aphasia. CURRENT MEDICATIONS: List was reviewed. ALLERGIES: LISTED TO CEFTRIAXONE. PHYSICAL EXAMINATION: GENERAL: The patient was in no respiratory distress. VITAL SIGNS: Stable. She is on room air O2 saturation greater than 92%. HEENT: Eyes, the sclerae were nonicteric. NECK: Jugular venous distention was not elevated. No lymphadenopathy. CHEST: Full expansion. LUNGS: Adequate air flow, no wheezes. CARDIOVASCULAR: Regular rate and rhythm with S1, S2, no S3. ABDOMEN: Soft, nontender, nondistended. EXTREMITIES: No clubbing, cyanosis or edema. NEUROLOGICAL: The patient was awake, alert, following commands. A detailed neuro exam was not performed. LABORATORY DATA: Reviewed. White count was normal. Hemoglobin and hematocrit were noted. Serology was negative for SARS-CoV-2. Electrolytes were noted. BUN and creatinine were noted. Troponin was not elevated. IMPRESSION: 1. Abnormal CT chest revealing what I suspect is mostly scarring and discoid atelectasis. No need for additional workup. 2. Chest pain per Cardiology. 3. History of cerebrovascular accident with ____-sided hemiparesis. 4. Aphasia. PLAN: Once again, no further pulmonary workup needed. The patient is okay to discharge from my standpoint of view. EMERSON ALLAN MD DR: YAMIL/jamison JOB#: [id number] / [id number]
[2020-05-13] MEDS: ASPIRIN ENTERIC COATED 81 MG TABLET.DR. PO SCH (18:30)
[2020-05-13 19:00] VITALS: BP 149/67
[2020-05-13] MEDS: SIMVASTATIN 10 MG TABLET PO SCH (21:43)
[2020-05-13] MEDS: SENNOSIDES/DOCUSATE 8.6/50MG TABLET. PO SCH (21:44)
[2020-05-13 22:30] VITALS: BP 156/75
--- NOTE | 2020-05-13 22:43 | NUR ---
Patient transfer to room 202, report given to SANDRA Rowley. all belongings with patient.
[2020-05-14 03:45] VITALS: BP 148/64
[2020-05-14 07:00] VITALS: BP 127/61
--- NOTE | 2020-05-14 08:40 | PDOC ---
PULMONARY PROGRESS NOTES DATE: 05/14/20 TIME: 08:39 Vitals Vital Signs Date Time Temp Pulse Resp B/P (MAP) Pulse Ox O2 Delivery O2 Flow Rate FiO2 05/14/20 07:00 98.0 69 20 127/61 (83) 99 Room Air 98.0 Lungs: Clear Labs Laboratory Tests Test 05/13/20 04:45 White Blood Count 3.8 x10^3/uL (4.0-11.0) Red Blood Count 3.38 x10^6/uL (3.50-5.70) Hemoglobin 10.1 g/dL (12.0-15.5) Hematocrit 31.4 % (36.0-47.0) Mean Corpuscular Volume 91 fL (79-100) Mean Corpuscular Hemoglobin 29 pg (25-35) Mean Corpuscular Hemoglobin Concent 32 g/dL (31-37) Red Cell Distribution Width 13.8 % (11.5-14.5) Platelet Count 154 x10^3/uL (140-400) Neutrophils (%) (Auto) 57 % (31-73) Lymphocytes (%) (Auto) 31 % (24-48) Monocytes (%) (Auto) 10 % (0-9) Eosinophils (%) (Auto) 1 % (0-3) Basophils (%) (Auto) 1 % (0-3) Neutrophils # (Auto) 2.2 x10^3/uL (1.8-7.7) Lymphocytes # (Auto) 1.2 x10^3/uL (1.0-4.8) Monocytes # (Auto) 0.4 x10^3/uL (0.0-1.1) Eosinophils # (Auto) 0.0 x10^3/uL (0.0-0.7) Basophils # (Auto) 0.0 x10^3/uL (0.0-0.2) Absolute Reticulocyte Count 0.037 x10^6/uL (0.020-0.120) Percent Reticulocyte Count 1.1 % (0.5-2.3) Immature Reticulocyte Fraction 0.38 (0.20-0.60) Triglycerides Level 53 mg/dL (0-150) Cholesterol Level 177 mg/dL (0-200) LDL Cholesterol, Calculated 74 mg/dL (0-100) VLDL Cholesterol, Calculated 11 mg/dL (0-40) Non-HDL Cholesterol Calculated 85 mg/dL (0-129) HDL Cholesterol 92 mg/dL (40-60) Cholesterol/HDL Ratio 1.9 Medications Active Scripts Medications Dose Route/Sig Max Daily Dose Days Date Category Mirtazapine 30 Mg Tablet 1 Tab PO QHS 05/12/20 Reported Doxycycline Hyclate 100 Mg Capsule 1 Cap PO BID 03/11/20 Rx Magnesium Citrate 296 Ml Solution 296 Ml PO ONCE 12/27/19 Rx Crete 5-325 Tablet (Acetaminophen/Hydrocodone Bitart) 1 Each Tablet 1 Tab PO PRN Q6HRS PRN 04/25/19 Rx K-Tab ER (Potassium Chloride) 20 Meq Tablet.er 20 Meq PO DAILY 14 04/16/19 Rx Valium (Diazepam) 5 Mg Tablet 5 Mg PO BID 04/02/19 Rx Orphenadrine Citrate 100 Mg Tablet.er 100 Mg PO BID PRN 02/16/19 Rx Valium (Diazepam) 5 Mg Tablet 5 Mg PO DAILY 01/22/19 Rx Potassium Chloride (Potassium Chloride) 10 Meq Tab.sr.24h 10 Meq PO TID 12/05/18 Rx Voltaren (Diclofenac Sodium) 100 Gm Gel..gram. 1 Gm TP QID 09/10/18 Rx Naprosyn (Naproxen) 500 Mg Tablet 500 Mg PO PRN BID PRN 30 10/19/17 Rx Cozaar (Losartan Potassium) 50 Mg Tablet 50 Mg PO DAILY 30 10/19/17 Rx Polyethylene Glycol 3350 17 Gm Powd.pack 17 Gm PO DAILY 30 10/19/17 Rx Tessalon Perle (Benzonatate) 100 Mg Capsule 1 Cap PO TID 10/02/17 Rx Proair Respiclick (Albuterol Sulfate) 90 Mcg Aer.pow.ba 1 Puff IH PRN Q6HRS PRN 10/02/17 Rx Hydrocodone-Apap 7.5-325 (Hydrocodone Bit/Acetaminophen) 1 Each Tablet 1 Tab PO PRN Q6HRS PRN 06/26/17 Reported Baclofen 20 Mg Tablet 20 Mg PO TID 06/26/17 Reported Omeprazole 20 Mg Capsule.dr 20 Mg PO DAILY 06/26/17 Reported Lidoderm (Lidocaine) 700 Mg Adh..patch 1 Patch TP PRN 01/07/15 Reported Ferrous Sulfate 325 Mg Tablet 325 Mg PO DAILY 01/07/15 Reported Klor-Con 10 (Potassium Chloride) 10 Meq Tablet.er 1 Tab PO TIDWMEALS 01/07/15 Reported Zetia (Ezetimibe) 10 Mg Tablet 1 Tab PO DAILY 01/07/15 Reported Senexon-S Tablet (Sennosides/Docusate Sodium) 1 Each Tablet 2 Each PO QHS 01/07/15 Reported Simvastatin 10 Mg Tablet 1 Tab PO QHS 01/07/15 Reported Carbamazepine 200 Mg Tablet 200 Mg PO BID 01/07/15 Reported Hydrochlorothiazide Tablet (Hydrochlorothiazide) 12.5 Mg Tablet 25 Mg PO DAILY 01/07/15 Reported FENTANYL 25mcg/hr (Fentanyl) 1 Each Patch.td72 1 Patch TD Q72H 01/07/15 Reported Impression . DICTATED NO WORK UP NEEDE OK TO EMERSON CURRY MD May 14, 2020 08:39
[2020-05-14] MEDS: EZETIMIBE 10 MG TABLET. PO SCH (08:41)
[2020-05-14] MEDS: LOSARTAN POTASSIUM 50 MG TABLET. PO SCH (08:41)
[2020-05-14] MEDS: POTASSIUM CHLORIDE 10 MEQ TABLET.ER. PO SCH ×2 (08:41→13:30)
[2020-05-14] MEDS: BENZONATATE 100 MG CAPSULE. PO SCH ×2 (08:42→13:30)
[2020-05-14] MEDS: DICLOFENAC SODIUM 1% TOPICAL GEL 100GM TUBE. TP SCH ×2 (08:42→13:30)
[2020-05-14] MEDS: ASPIRIN ENTERIC COATED 81 MG TABLET.DR. PO SCH (08:42)
[2020-05-14] MEDS: FERROUS SULFATE 325 MG TABLET. PO SCH (08:42)
[2020-05-14] MEDS: POLYETHYLENE GLYCOL 3350 17 GM PACKET. PO SCH (08:42)
[2020-05-14] MEDS: carBAMazepine 200 MG TABLET PO SCH (08:42)
--- NOTE | 2020-05-14 09:08 | SNU/HH DC ---
DISCHARGE ORDERS DISCHARGE INFORMATION: DISCHARGE DATE: May 14, 2020 FINAL DIAGNOSIS Problems Medical Problems: (1) Chest pain Status: Acute (2) Person under investigation for COVID-19 Status: Acute CONDITION ON DISCHARGE: Stable CODE STATUS: Code Status: Full SNF: SNF STAY <30 DAYS: Yes POST DISCHARGE ORDERS: ACTIVITY ORDERS: Resume previous activity, Activity as tolerated DIET AFTER DISCHARGE: Cardiac WOUND/INCISION CARE: No wound care needed CHECKS AFTER DISCHARGE: CHECKS AFTER DISCHARGE: Check blood press - daily TREATMENT/EQUIPMENT ORDERS: ADAPTIVE EQUIPMENT NEEDED: Brace/splint Physical Therapy For: Evalulation/Treatment Occupational Therapy For: Evaluation/Treatment Speech Language Pathology For: Evaluation/Treatment DISCHARGE MEDICATIONS: Home Meds Active Scripts Doxycycline Hyclate (DOXYCYCLINE HYCLATE) 100 Mg Capsule, 1 CAP PO BID for COUGH for 7 Days, #14 CAP Prov:SCOTT LEWIS MD 05/13/20 Hydrocodone/Apap 5-325 (NORCO 5-325 TABLET) 1 Each Tablet, 1 TAB PO PRN Q6HRS MD N for PAIN, #10 TAB 0 Refills Prov:MARLO HARDY APRN 04/25/19 Diclofenac Sodium (VOLTAREN) 100 Gm Gel..gram., 1 GM TP QID, #100 GM 2 Refills Prov:MARCK MA APRN 09/10/18 Naproxen (NAPROSYN) 500 Mg Tablet, 500 MG PO PRN BID PRN for PAIN for 30 Days, #60 TAB Prov:GLENN DESHPANDE MD 10/19/17 Losartan Potassium (COZAAR ) 50 Mg Tablet, 50 MG PO DAILY for 30 Days, #30 TAB Prov:GLENN DESHPANDE MD 10/19/17 Polyethylene Glycol 3350 (POLYETHYLENE GLYCOL 3350) 17 Gm Powd.pack, 17 GM PO DAILY for 30 Days, #30 PKT Prov:GLENN DESHPANDE MD 10/19/17 Benzonatate (TESSALON PERLE) 100 Mg Capsule, 1 CAP PO TID, #30 CAP Prov:MARCK MA APRN 10/02/17 Albuterol Sulfate (Proair Respiclick) 90 Mcg Aer.pow.ba, 1 PUFF IH PRN Q6HRS PRN for SHORTNESS OF BREATH, #1 INHALER Prov:MARCK MA APRN 10/02/17 Reported Medications Mirtazapine (MIRTAZAPINE) 30 Mg Tablet, 1 TAB PO QHS for UKN, #30 TAB 1 Refill 05/12/20 Baclofen (BACLOFEN) 20 Mg Tablet, 20 MG PO TID 06/26/17 Omeprazole (OMEPRAZOLE) 20 Mg Capsule.dr, 20 MG PO DAILY 06/26/17 Lidocaine (LIDODERM) 700 Mg Adh..patch, 1 PATCH TP PRN for PAIN, PATCH 01/07/15 Ferrous Sulfate (FERROUS SULFATE) 325 Mg Tablet, 325 MG PO DAILY 01/07/15 Potassium Chloride (KLOR-CON 10) 10 Meq Tablet.er, 1 TAB PO TIDWMEALS, #30 TAB 5 Refills 01/07/15 Ezetimibe (ZETIA) 10 Mg Tablet, 1 TAB PO DAILY, #30 TAB 5 Refills 01/07/15 Sennosides/Docusate Sodium (SENEXON-S TABLET) 1 Each Tablet, 2 EACH PO QHS 01/07/15 Simvastatin (SIMVASTATIN) 10 Mg Tablet, 1 TAB PO QHS, #30 TAB 5 Refills 01/07/15 Carbamazepine (CARBAMAZEPINE) 200 Mg Tablet, 200 MG PO BID 01/07/15 Discontinued Reported Medications Hydrocodone Bit/Acetaminophen (HYDROCODONE-APAP 7.5-325 ) 1 Each Tablet, 1 TAB PO PRN Q6HRS PRN for PAIN, TAB 0 Refills 06/26/17 Hydrochlorothiazide (HYDROCHLOROTHIAZIDE TABLET) 12.5 Mg Tablet, 25 MG PO DAILY for DIURETIC, TAB 0 Refills 01/07/15 Fentanyl (FENTANYL 25mcg/hr) 1 Each Patch.td72, 1 PATCH TD Q72H, PATCH 01/07/15 Discontinued Scripts Magnesium Citrate (MAGNESIUM CITRATE) 296 Ml Solution, 296 ML PO ONCE, #296 ML Prov:MARLO HARDY AUDIO VISUAL COORDINATOR 12/27/19 Potassium Chloride (K-Tab ER) 20 Meq Tablet.er, 20 MEQ PO DAILY for 14 Days, #14 TAB.SR Prov:KIRSTEN MCCLELLAN MD 04/16/19 Diazepam (VALIUM) 5 Mg Tablet, 5 MG PO BID, #12 TAB Prov:BERYL SANTIZO 04/02/19 Orphenadrine Citrate (ORPHENADRINE CITRATE) 100 Mg Tablet.er, 100 MG PO BID PRN for MUSCLE SPASMS, #14 Prov:GLENN OAKLEY DO 02/16/19 Diazepam (VALIUM) 5 Mg Tablet, 5 MG PO DAILY for muscle spasm, #5 TAB Prov:DIVYA ARANGO AUDIO VISUAL COORDINATOR 01/22/19 Potassium Chloride (POTASSIUM CHLORIDE ) 10 Meq Tab.sr.24h, 10 MEQ PO TID, #30 TAB.SR Prov:MARCK MA APRN 12/05/18 KENNA VAN MD May 14, 2020 09:08
--- NOTE | 2020-05-14 09:12 | PDOC3 ---
Discharge Summary Visit Information Date of Admission: May 11, 2020 Date of Discharge: May 13, 2020 Admitting Diagnosis Comment: Chest pain Right upper lobe infiltrate could be discoid atelectasis or scar. Nodular opacity in the right upper lobe suprahilar space may represent pulmonary infiltrate, Groundglass opacities are nonspecific and likely discoid atelectasis. T2 and T4 vertebral body compression fractures presumably old. remote cva with paresis leukopenia normocytic anemia Person under investigation for COVID-19 Final Diagnosis Problems Medical Problems: (1) Chest pain Status: Acute (2) Negative for COVID-19 Status: Acute Chest pain/ GERD Right upper lobe infiltrate could be discoid atelectasis or scar. Nodular opacity in the right upper lobe suprahilar space may represent pulmonary infiltrate, LIKELY SCAR Groundglass opacities are nonspecific and likely discoid atelectasis. T2 and T4 vertebral body compression fractures presumably old. remote cva with paresis leukopenia normocytic anemia COVID-19 neg 05/13 Brief Hospital Course Allergies Allergies Coded Allergies Type Severity Reaction Last Updated Verified ceftriaxone Allergy Severe SWELLING,HIVES 05/14/20 Yes Vital Signs Vital Signs Date Time Temp Pulse Resp B/P (MAP) Pulse Ox O2 Delivery O2 Flow Rate FiO2 05/14/20 08:41 69 127/61 05/14/20 07:00 98.0 20 99 Room Air 98.0 Lab Results Laboratory Tests Test 05/13/20 04:45 White Blood Count 3.8 x10^3/uL (4.0-11.0) Red Blood Count 3.38 x10^6/uL (3.50-5.70) Hemoglobin 10.1 g/dL (12.0-15.5) Hematocrit 31.4 % (36.0-47.0) Mean Corpuscular Volume 91 fL (79-100) Mean Corpuscular Hemoglobin 29 pg (25-35) Mean Corpuscular Hemoglobin Concent 32 g/dL (31-37) Red Cell Distribution Width 13.8 % (11.5-14.5) Platelet Count 154 x10^3/uL (140-400) Neutrophils (%) (Auto) 57 % (31-73) Lymphocytes (%) (Auto) 31 % (24-48) Monocytes (%) (Auto) 10 % (0-9) Eosinophils (%) (Auto) 1 % (0-3) Basophils (%) (Auto) 1 % (0-3) Neutrophils # (Auto) 2.2 x10^3/uL (1.8-7.7) Lymphocytes # (Auto) 1.2 x10^3/uL (1.0-4.8) Monocytes # (Auto) 0.4 x10^3/uL (0.0-1.1) Eosinophils # (Auto) 0.0 x10^3/uL (0.0-0.7) Basophils # (Auto) 0.0 x10^3/uL (0.0-0.2) Absolute Reticulocyte Count 0.037 x10^6/uL (0.020-0.120) Percent Reticulocyte Count 1.1 % (0.5-2.3) Immature Reticulocyte Fraction 0.38 (0.20-0.60) Triglycerides Level 53 mg/dL (0-150) Cholesterol Level 177 mg/dL (0-200) LDL Cholesterol, Calculated 74 mg/dL (0-100) VLDL Cholesterol, Calculated 11 mg/dL (0-40) Non-HDL Cholesterol Calculated 85 mg/dL (0-129) HDL Cholesterol 92 mg/dL (40-60) Cholesterol/HDL Ratio 1.9 Brief Hospital Course Chief Complaint SEEN IN ER , 60 year old female with history of CVA-aphasia, right breast cancer with mastectomy, who presented to the ED 05/11 to be evaluated for chest pain. not verbal, only points to the chest when asked if she has pain. Patient seen in consultation by cardiology and pulmonology both consultants deemed the patient appropriate for discharge. Her COVID-19 test was negative and referrals has been sent to [facility]. Patient will transition today once bed available. She complained of right knee swelling and we will do an x- ray prior to discharge to ensure no musculoskeletal abnormalities are present Assessment Assessment PHYSICAL EXAM General: Alert HEENT: Atraumatic, Mucous membr. moist/pink Lungs: Clear to auscultation Heart: Regular rate Abdomen: Soft, No tenderness Extremities: No edema, Normal pulses Skin: No significant lesion Neuro: Other (expressive aphasia, right hemiparesis ) Psych/Mental Status: Other (unable to assess ) Discharge Information Condition at Discharge: Improved Follow Up: Weeks Disposition/Orders: D/C to Another Facility Scheduled Baclofen (Baclofen) 20 Mg Tablet, 20 MG PO TID, (Reported) Entered as Reported by: AMY MCDONALD on 06/26/172001 Last Taken: Unknown Dose on Unknown Date & Time Last Action: Last Taken Edited on 05/12/20899 by EDGARD STARR Benzonatate (Tessalon Perle) 100 Mg Capsule, 1 CAP PO TID, #30 Prescribed by: Esther Pires APRN on 10/02/17 0941 Last Action: Continued on 05/12/20916 by SCOTT LEWIS MD Carbamazepine (Carbamazepine) 200 Mg Tablet, 200 MG PO BID, (Reported) Entered as Reported by: Mariah Lopez on 01/07/152029 Last Taken: Unknown Dose on Unknown Date & Time Last Action: Continued on 05/12/20916 by SCOTT LEWIS MD Diclofenac Sodium (Voltaren) 100 Gm Gel..gram., 1 GM TP QID, #100 Ref 2 Prescribed by: Esther Pires APRN on 09/10/18 175 Last Action: Continued on 05/12/20916 by SCOTT LEWIS MD Doxycycline Hyclate (Doxycycline Hyclate) 100 Mg Capsule, 1 CAP PO BID for COUGH for 7 Days, #14 Prescribed by: SCOTT LEWIS MD on 05/13/20 1509 Ezetimibe (Zetia) 10 Mg Tablet, 1 TAB PO DAILY, #30 Ref 5 (Reported) Entered as Reported by: Mariah Lopez on 01/07/152029 Last Action: Continued on 05/12/20916 by SCOTT LEWIS MD Ferrous Sulfate (Ferrous Sulfate) 325 Mg Tablet, 325 MG PO DAILY, (Reported) Entered as Reported by: Mariah Lopez on 01/07/152029 Last Action: Continued on 05/12/20916 by SCOTT LEWIS MD Losartan Potassium (Cozaar ) 50 Mg Tablet, 50 MG PO DAILY for 30 Days, #30 Prescribed by: GLENN DESHPANDE on 10/19/17 0908 Last Action: Continued on 05/12/20916 by SCOTT LEWIS MD Mirtazapine (Mirtazapine) 30 Mg Tablet, 1 TAB PO QHS for UKN, #30 Ref 1 (Reported) Entered as Reported by: EDGARD STARR on 05/12/20899 Last Taken: Unknown Dose on Unknown Date & Time Last Action: New Order on 05/12/20899 by EDGARD STARR Omeprazole (Omeprazole) 20 Mg Capsule.dr, 20 MG PO DAILY, (Reported) Entered as Reported by: AMY MCDONALD on 06/26/172001 Polyethylene Glycol 3350 (Polyethylene Glycol 3350) 17 Gm Powd.pack, 17 GM PO DAILY for 30 Days, #30 Prescribed by: GLENN DESHPANDE on 10/19/17 0908 Last Action: Continued on 05/12/20916 by SCOTT LEWIS MD Potassium Chloride (Klor-Con 10) 10 Meq Tablet.er, 1 TAB PO TIDWMEALS, #30 Ref 5 (Reported) Entered as Reported by: Mariah Lopez on 01/07/152029 Last Action: Continued on 05/12/20916 by SCOTT LEWIS MD Sennosides/Docusate Sodium (Senexon-S Tablet) 1 Each Tablet, 2 EACH PO QHS, (Reported) Entered as Reported by: Mariah Lopez on 01/07/152029 Last Action: Continued on 05/12/20916 by SCOTT LEWIS MD Simvastatin (Simvastatin) 10 Mg Tablet, 1 TAB PO QHS, #30 Ref 5 (Reported) Entered as Reported by: Mariah Lopez on 01/07/152029 Last Taken: Unknown Dose on Unknown Date & Time Last Action: Continued on 05/12/20916 by SCOTT LEWIS MD Scheduled PRN Albuterol Sulfate (Proair Respiclick) 90 Mcg Aer.pow.ba, 1 PUFF IH PRN Q6HRS PRN for SHORTNESS OF BREATH, #1 Prescribed by: Esther Pires APRN on 10/02/17 0941 Last Action: Converted on 05/12/20916 by SCOTT LEWIS MD Hydrocodone/Apap 5-325 (Josephine 5-325 Tablet) 1 Each Tablet, 1 TAB PO PRN Q6HRS PRN for PAIN, #10 Ref 0 Prescribed by: MARLO HARDY APRN on 04/25/19 1347 Last Action: HELD on 05/12/20916 by SCOTT LEWIS MD Lidocaine (Lidoderm) 700 Mg Adh..patch, 1 PATCH TP for PAIN, (Reported) Entered as Reported by: Mariah Lopez on 01/07/152029 Last Action: Continued on 05/12/20916 by SCOTT LEWIS MD Naproxen (Naprosyn) 500 Mg Tablet, 500 MG PO PRN BID PRN for PAIN for 30 Days, #60 Prescribed by: GLENN DESHPANDE on 10/19/17 0909 Last Action: Continued on 05/12/20916 by SCOTT LEWIS MD Discontinued Medications Diazepam (Valium) 5 Mg Tablet, 5 MG PO DAILY for muscle spasm, #5 Prescribed by: DIVYA ARANGO APRN on 01/22/19 1216 Last Action: HELD on 05/12/20916 by SCOTT LEWIS MD Diazepam (Valium) 5 Mg Tablet, 5 MG PO BID, #12 Prescribed by: BERYL SANTIZO PA-C on 04/02/19 1422 Last Action: HELD on 05/12/20916 by SCOTT LEWIS MD Fentanyl (FENTANYL 25mcg/hr) 1 Each Patch.td72, 1 PATCH TD Q72H, (Reported) Entered as Reported by: Mariah Lopez on 01/07/152015 Last Action: HELD on 05/12/20916 by SCOTT LEWIS MD Hydrochlorothiazide (Hydrochlorothiazide Tablet) 12.5 Mg Tablet, 25 MG PO DAILY for DIURETIC, Ref 0 (Reported) Entered as Reported by: Mariah Lopez on 01/07/152029 Last Taken: Unknown Dose on Unknown Date & Time Last Action: Last Taken Edited on 05/12/20899 by EDGARD STARR Hydrocodone Bit/Acetaminophen (Hydrocodone-Apap 7.5-325 ) 1 Each Tablet, 1 TAB PO PRN Q6HRS PRN for PAIN, Ref 0 (Reported) Entered as Reported by: AMY MCDONALD on 06/26/172001 Last Taken: Unknown Dose on Unknown Date & Time Last Action: Continued on 05/12/20916 by SCOTT LEWIS MD Magnesium Citrate (Magnesium Citrate) 296 Ml Solution, 296 ML PO ONCE, #296 Prescribed by: MARLO HARDY APRN on 12/27/19 1515 Last Action: HELD on 05/12/20916 by SCOTT LEWIS MD Orphenadrine Citrate (Orphenadrine Citrate) 100 Mg Tablet.er, 100 MG PO BID PRN for MUSCLE SPASMS, #14 Prescribed by: GLENN OAKLEY D.O. on 02/16/19 0501 Potassium Chloride (Potassium Chloride ) 10 Meq Tab.sr.24h, 10 MEQ PO TID, #30 Prescribed by: Esther Pires APRN on 12/05/18 1303 Last Action: Continued on 05/12/20916 by SCOTT LEWIS MD Potassium Chloride (K-Tab ER) 20 Meq Tablet.er, 20 MEQ PO DAILY for 14 Days, #14 Prescribed by: KIRSTEN MCCLELLAN MD on 04/16/19 1351 Justicifation of Admission Dx: Justifications for Admission: Justification of Admission Dx: Yes (chest pain, placement) Cellulitis: Cellulitis KENNA VAN MD May 14, 2020 09:12
[2020-05-14 11:00] VITALS: BP 145/68
[2020-05-14 15:00] VITALS: BP 133/67
--- NOTE | 2020-05-14 16:05 | NUR ---
Report called to SANDRA Lopez at [facility] . Informed facility of outpatient echocardiogram on May 24, 2020 at 10:45 AM.
== END 2020-05-14 16:10 | disposition short-term general hospital (02) | DRG 392 ==
LOC: ER 16:52 → 6 SOUTH 21:35 → 2 NORTH 05-13 22:24
PROVIDERS: ADMIT Family Medicine; ATTEND Family Medicine
DX: K21.9 Gastro-esophageal reflux disease without esophagitis (principal); J98.11 Atelectasis; I69.351 Hemiplegia and hemiparesis following cerebral infarction affecting right dominant side; R07.9 Chest pain, unspecified; Z20.828 Contact with and (suspected) exposure to other viral communicable diseases; M19.90 Unspecified osteoarthritis, unspecified site; D72.819 Decreased white blood cell count, unspecified; D64.9 Anemia, unspecified; I10 Essential (primary) hypertension; M24.50 Contracture, unspecified joint; I69.320 Aphasia following cerebral infarction; Z85.3 Personal history of malignant neoplasm of breast; Z90.11 Acquired absence of right breast and nipple; Z88.8 Allergy status to other drugs, medicaments and biological substances; Z82.49 Family history of ischemic heart disease and other diseases of the circulatory system
CPT/HCPCS: 36415; 71045; 71250; 80048; 80053; 80061; 83735; 83880; 84443; 84484; 85025; 85045; 85610; 87040; 93005; 96365; 96375; 99285; J1956; J2060; J2270; J2930; 97530-GP; G0378; U0003-CS

== ENCOUNTER → 2020-05-21 | Outpatient (CLI) | payer MEDICAID ==
[2020-05-14 15:00] VITALS: BP 133/67
[~2020-05-21] MED LIST changes: +MIRT30TA3 PO
--- NOTE | 2020-05-21 15:12 | CARD ---
MR#: [id number] Date of Study: 05/21/2020 Ordering Physician: ZI PRATHER, Referring Physician: ZI PRATHER, Tech: Nelly Mccloud JASPAL APPROVED REPORT EXAM: Two-dimensional and M-mode echocardiogram with Doppler and color Doppler. Other Information Quality : Good INDICATION Hypertension/HCVD Hx: CVA 2D DIMENSIONS RVDd1.8 (2.9-3.5cm)Left Atrium(2D)3.0 (1.6-4.0cm) IVSd0.8 (0.7-1.1cm)Aortic Root(2D)2.2 (2.0-3.7cm) LVDd3.9 (3.9-5.9cm)LVOT Diameter2.0 (1.8-2.4cm) PWd0.7 (0.7-1.1cm)LVDs2.5 (2.5-4.0cm) FS (%) 35.9 %SV43.0 ml LVEF(%)60.0 (>50%) Aortic Valve AoV Peak Jerry.129.1cm/sAoV VTI26.6cm AO Peak GR.6.7mmHgLVOT Peak Jerry.105.2cm/s AO Mean GR.3mmHgAVA (VMAX)2.61cm2 AIME (VTI)2.50id2LZ P 1/2 Htlv145ot Mitral Valve MV E Ijaojhgu87.7cm/sMV DECEL ERQU093bk MV A Uyxehkcv23.6cm/sE/A Ratio1.1 Tricuspid Valve TR P. Ooxahzdq545fk/sRAP UZEBEWDE6qgJr TR Peak Gr.55kgGkXHYH14dqEs Pulmonary Vein S1 Moveiiqi67.0cm/sD2 Rnihkgxn36.3cm/s LEFT VENTRICLE The left ventricle is normal size. There is normal left ventricular wall thickness. The left ventricu lar systolic function is normal. The Ejection Fraction is 55-60%. There is normal LV segmental wall m otion. The left ventricular diastolic function and filling is normal for age. RIGHT VENTRICLE The right ventricle is normal size. The right ventricular systolic function is normal. ATRIA The left atrium size is normal. The right atrium size is normal. The interatrial septum is intact wit h no evidence for an atrial septal defect or patent foramen ovale as noted on 2-D or Doppler imaging. AORTIC VALVE The aortic valve is calcified but opens well. Doppler and Color Flow revealed no significant aortic r egurgitation. There is no significant aortic valvular stenosis. MITRAL VALVE The mitral valve is calcified but opens well. Mitral annular calcification is mild. There is no evide nce of mitral valve prolapse. There is no mitral valve stenosis. Doppler and Color-flow revealed trac e mitral regurgitation. TRICUSPID VALVE The tricuspid valve is normal in structure and function. Doppler and Color Flow revealed mild tricusp id regurgitation. The PA pressure was estimated at 29 mmHg. There is no tricuspid valve stenosis. PULMONIC VALVE The pulmonic valve is not well visualized. Doppler and Color Flow revealed mild pulmonic valvular reg urgitation. There is no pulmonic valvular stenosis. GREAT VESSELS The aortic root is normal in size. The ascending aorta is normal in size. The IVC is normal in size a nd collapses >50% with inspiration. PERICARDIAL EFFUSION There is no evidence of significant pericardial effusion. Critical Notification Critical Value: No <Conclusion> The left ventricular systolic function is normal. The Ejection Fraction is 55-60%. There is normal LV segmental wall motion. Trace mitral regurgitation. Mild tricuspid regurgitation. The PA pressure was estimated at 29 mmHg. There is no evidence of significant pericardial effusion. Signed by : Doroteo Hunt, Electronically Approved : 05/21/2020 15:12:34
== END | disposition home or self-care (01) ==
LOC: ECHO 10:33
PROVIDERS: ATTEND Internal Medicine Cardiovascular Disease
DX: I08.8 Other rheumatic multiple valve diseases (principal); I10 Essential (primary) hypertension
CPT/HCPCS: 93306

== ENCOUNTER 2020-07-30 10:52 | Emergency (ER) | payer MEDICAID ==
[~2020-07-30] VITALS: Ht 162.6 cm; Wt 70.0 kg
[2020-07-30 11:42] LABS: BASO % 1 % (0-3); EOS % 1 % (0-3); HEMATOCRIT 39.5 % (36.0-47.0); LYMPH # 0.7 x10^3/uL (1.0-4.8); LYMPH % 25 % (24-48); MEAN CORPUSCULAR HEMOGLOBIN 29 pg (25-35); MEAN CORPUSCULAR HGB CONC 33 g/dL (31-37); MEAN CORPUSCULAR VOLUME 88 fL (79-100); MONO # 0.2 x10^3/uL (0.0-1.1); MONO % 7 % (0-9); NEUT # 1.9 x10^3/uL (1.8-7.7); NEUT % 66 % (31-73); PLATELET COUNT 167 x10^3/uL (140-400); RED BLOOD COUNT 4.47 x10^6/uL (3.50-5.40); RED CELL DISTRIBUTION WIDTH 13.6 % (11.5-14.5); WHITE BLOOD COUNT 2.9 x10^3/uL (4.0-11.0)
--- NOTE | 2020-07-30 11:53 | RAD ---
EXAM: CHEST 1 VIEW History: Chest pain COMPARISON: 05/11/2020 TECHNIQUE: Single portable radiograph of the chest FINDINGS: The cardiac silhouette is unremarkable. Linear opacity right upper lobe of the lung similar to prior exam The costophrenic sulci are clear and well demarcated. IMPRESSION: Unchanged linear opacity right apical lung. Electronically signed by: Fidel Booth MD (07/30/2020 11:51 AM) [id number]
[2020-07-30 11:57] LABS: CALCIUM 9.7 mg/dL (8.5-10.1); CREATININE 0.8 mg/dL (0.6-1.0); GFR 88.2; POTASSIUM 3.7 mmol/L (3.5-5.1)
--- NOTE | 2020-07-30 12:12 | PHYS DOC ---
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 Patient is a 60-year-old female with history of CVA with right-sided residual deficits and aphasia who presents from home with concern of panic attack. EMS states that the patient's son reported that he was concerned the patient is experiencing a panic attack. No further history can be obtained from EMS. Upon arrival patient indicates no signs of pain to me. Depressive aphasia present therefore history limited. We did attempt to contact patient's son who was unreachable for further history. Review of Systems: Review of Systems: Review of symptoms unable to be obtained secondary to patient's aphasia Heart Score: Risk Factors: Risk Factors: DM, Current or recent (<one month) smoker, HTN, HLP, family history of CAD, obesity. Risk Scores: Score 0 - 3: 2.5% MACE over next 6 weeks - Discharge Home Score 4 - 6: 20.3% MACE over next 6 weeks - Admit for Clinical Observation Score 7 - 10: 72.7% MACE over next 6 weeks - Early Invasive Strategies Allergies: Allergies: Allergies Coded Allergies Type Severity Reaction Last Updated Verified ceftriaxone Allergy Severe SWELLING,HIVES 05/14/20 Yes Physical Exam: PE: Constitutional: Well developed, well nourished, no acute distress, non-toxic appearance. [] HENT: Normocephalic, atraumatic, bilateral external ears normal, oropharynx moist, no oral exudates, nose normal. [] Eyes: PERRLA, EOMI, conjunctiva normal, no discharge. [] Neck: Normal range of motion, no tenderness, supple, no stridor. [] Cardiovascular:Heart rate regular rhythm, no murmur [] Lungs & Thorax: Bilateral breath sounds clear to auscultation [] Abdomen: soft, no tenderness, no masses, no pulsatile masses. [] Skin: Warm, dry, no erythema, no rash. [] Back: No tenderness, no CVA tenderness. [] Extremities: No tenderness, no cyanosis, no clubbing, ROM intact, no edema. [] Neurologic: Alert. Oriented x3. Expressive aphasia present. Right upper extremity spasticity present. Right lower extremity weakness present. Both chronic in nature. Left upper extremity and lower extremities are plus 5 out of 5 strength. Current Patient Data: Labs: Laboratory Tests Test 07/30/20 11:30 White Blood Count 2.9 x10^3/uL (4.0-11.0) L Red Blood Count 4.47 x10^6/uL (3.50-5.40) Hemoglobin 13.0 g/dL (12.0-15.5) Hematocrit 39.5 % (36.0-47.0) Mean Corpuscular Volume 88 fL (79-100) Mean Corpuscular Hemoglobin 29 pg (25-35) Mean Corpuscular Hemoglobin Concent 33 g/dL (31-37) Red Cell Distribution Width 13.6 % (11.5-14.5) Platelet Count 167 x10^3/uL (140-400) Neutrophils (%) (Auto) 66 % (31-73) Lymphocytes (%) (Auto) 25 % (24-48) Monocytes (%) (Auto) 7 % (0-9) Eosinophils (%) (Auto) 1 % (0-3) Basophils (%) (Auto) 1 % (0-3) Neutrophils # (Auto) 1.9 x10^3/uL (1.8-7.7) Lymphocytes # (Auto) 0.7 x10^3/uL (1.0-4.8) L Monocytes # (Auto) 0.2 x10^3/uL (0.0-1.1) Eosinophils # (Auto) 0.0 x10^3/uL (0.0-0.7) Basophils # (Auto) 0.0 x10^3/uL (0.0-0.2) Sodium Level 141 mmol/L (136-145) Potassium Level 3.7 mmol/L (3.5-5.1) Chloride Level 104 mmol/L (98-107) Carbon Dioxide Level 29 mmol/L (21-32) Anion Gap 8 (6-14) Blood Urea Nitrogen 13 mg/dL (7-20) Creatinine 0.8 mg/dL (0.6-1.0) Estimated GFR (Cockcroft-Gault) 88.2 Glucose Level 87 mg/dL (70-99) Calcium Level 9.7 mg/dL (8.5-10.1) Laboratory Tests 07/30/20 11:30 Laboratory Tests 07/30/20 11:30 Vital Signs: Vital Signs Date Time Temp Pulse Resp B/P (MAP) Pulse Ox O2 Delivery O2 Flow Rate FiO2 07/30/20 10:54 97.7 94 16 206/93 (130) 100 Room Air 97.7 EKG: EKG: EKG consistent with normal sinus rhythm. Ventricular rate of 75 bpm. [place] normal. Intervals normal. No acute ischemic changes noted. Radiology/Procedures: Radiology/Procedures: [facility] [address] [place] [address] IMAGING REPORT Signed PATIENT: LEXII HAYDEN ACCOUNT: [id number] : 1960 LOCATION: ER AGE: 60 SEX: F EXAM STATUS: REG ER ORD. PHYSICIAN: COLT REIS DO REASON: CP PROCEDURE: CHEST AP ONLY EXAM: CHEST 1 VIEW History: Chest pain COMPARISON: 05/11/2020 TECHNIQUE: Single portable radiograph of the chest FINDINGS: The cardiac silhouette is unremarkable. Linear opacity right upper lobe of the lung similar to prior exam The costophrenic sulci are clear and well demarcated. IMPRESSION: Unchanged linear opacity right apical lung. Electronically signed by: Fidel Booth MD (07/30/2020 11:51 AM) [id number] DICTATED and SIGNED BY: FIDEL BOOTH MD DATE: 07/30/20 [id number] 0 [] Course & Med Decision Making: Course & Med Decision Making Pertinent Labs and Imaging studies reviewed. (See chart for details) [] Patient is a 60-year-old female who presents via EMS for son's concern of anxiety attack. EMS has run on this patient before and states that she does appear to be at her baseline. Patient is able to express that she is alert and oriented x3. History quite limited secondary to her expressive aphasia but she denies any pain complaints. Neurologic exam appears at baseline. Basic labs were obtained and were grossly unremarkable. Chest x-ray nonacute. Given she does not appear have any new neurologic deficits CT imaging of the head will be deferred. Vital signs remained normal. EKG without abnormality. At this time I do feel the patient is appropriate for discharge home. We did attempt multiple times to contact the patient's son for further history but were unsuccessful. Patient will be discharged home at this time. Dragon Disclaimer: Dragon Disclaimer: This electronic medical record was generated, in whole or in part, using a voice recognition dictation system. Departure Departure Impression: Primary Impression: Anxiousness Disposition: 01 DC HOME SELF CARE/HOMELESS Condition: STABLE Referrals: Marquita AGUILERA MD (PCP) Patient Instructions: Anxiety and Panic Attacks Additional Instructions: Please return in 12 to 24 hours should her symptoms return or worsen. COLT REIS DO Jul 30, 2020 12:12
[2020-07-30 13:50] VITALS: BP 172/80
--- NOTE | 2020-08-04 07:31 | EKG ---
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
== END 2020-07-30 14:18 | disposition home or self-care (01) ==
LOC: ER 10:52
DX: F41.9 Anxiety disorder, unspecified (principal); K21.9 Gastro-esophageal reflux disease without esophagitis; Z86.73 Personal history of transient ischemic attack (TIA), and cerebral infarction without residual deficits; Z87.891 Personal history of nicotine dependence; Z88.1 Allergy status to other antibiotic agents
CPT/HCPCS: 36415; 71045; 80048; 84484; 85025; 93005; 99285-25

== ENCOUNTER 2020-08-09 09:48 | Emergency (ER) | payer MEDICAID ==
[~2020-08-09] VITALS: Ht 162.6 cm; Wt 63.0 kg
--- NOTE | 2020-08-09 10:12 | PHYS DOC ---
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 It was reported that no injury happened. Patient was evaluated here in the past for right side pain. Review of Systems: Review of Systems: Constitutional: Denies fever or chills. [] Eyes: Denies change in visual acuity. [] HENT: Denies nasal congestion or sore throat. [] Respiratory: Denies cough or shortness of breath. [] Cardiovascular: Denies chest pain or edema. [] GI: Denies abdominal pain, nausea, vomiting, bloody stools or diarrhea. [] : Denies dysuria. [] Musculoskeletal: Positive for right lower extremity pain. Integument: Denies rash. [] Neurologic: Denies headache, focal weakness or sensory changes. [] Endocrine: Denies polyuria or polydipsia. [] Lymphatic: Denies swollen glands. [] Psychiatric: Denies depression or anxiety. [] Heart Score: Risk Factors: Risk Factors: DM, Current or recent (<one month) smoker, HTN, HLP, family history of CAD, obesity. Risk Scores: Score 0 - 3: 2.5% MACE over next 6 weeks - Discharge Home Score 4 - 6: 20.3% MACE over next 6 weeks - Admit for Clinical Observation Score 7 - 10: 72.7% MACE over next 6 weeks - Early Invasive Strategies Allergies: Allergies: Allergies Coded Allergies Type Severity Reaction Last Updated Verified ceftriaxone Allergy Severe SWELLING,HIVES 05/14/20 Yes Physical Exam: PE: Constitutional: Well developed, well nourished, no acute distress, non-toxic appearance. [] HENT: Normocephalic, atraumatic, bilateral external ears normal, oropharynx moist, no oral exudates, nose normal. [] Eyes: PERRLA, EOMI, conjunctiva normal, no discharge. [] Neck: Normal range of motion, no tenderness, supple, no stridor. [] Cardiovascular:Heart rate regular rhythm, no murmur [] Lungs & Thorax: Bilateral breath sounds clear to auscultation [] Abdomen: Bowel sounds normal, soft, no tenderness, no masses, no pulsatile masses. [] Skin: Warm, dry, no erythema, no rash. [] Back: No tenderness, no CVA tenderness. [] Extremities: RIGHT THIGHT, RIGHT KNEE AND RIGHT LEG ARE TENDER TO PALPATION, SWOLLEN COMPARED TO THE LEFT SIDE, MILD ERYTHEMA, WARM TO TOUCH. There is strong dorsalis pedis pulse. RUE contracted (chronic) Neurologic: Alert, move left side without any problem. Psychologic: Affect normal, judgement normal, mood normal. [] EKG: EKG: [] Radiology/Procedures: Radiology/Procedures: [][address] [address] IMAGING REPORT Signed PATIENT: LEXII HAYDEN ACCOUNT: [id number] : 1960 LOCATION: ER AGE: 60 SEX: F EXAM STATUS: REG ER ORD. PHYSICIAN: FELICIANO NEW DO REASON: right leg pain and swelling PROCEDURE: VENOUS LOWER EXTREMITY RIGHT Right Lower Extremity Venous Doppler Ultrasound History: Reason: right leg pain and swelling / Spl. Instructions: / History: Comparison: None Procedure: Color flow, duplex, spectral analysis and 2D images are obtained with and without compression in the area of the common femoral vein, superficial femoral vein - femoral vein junction, main femoral vein (superficial femoral vein) and popliteal vein. Veins of the proximal calf are also imaged. Findings: There is normal duplex flow, color flow and compressibility of all visualized vein segments. No evidence of deep venous thrombus is present. Impression: No evidence of DVT. Electronically signed by: Federico Brock III, MD (08/09/2020 12:19 PM) [facility] DICTATED and SIGNED BY: FEDERICO BROCK III, MD DATE: 08/09/20 [id number] [address] IMAGING REPORT Signed PATIENT: LEXII HAYDEN ACCOUNT: [id number] : 1960 LOCATION: ER AGE: 60 SEX: F EXAM STATUS: PRE ER ORD. PHYSICIAN: FELICIANO NEW DO REASON: pain, not sure if she fell, right side weakness due to CVA PROCEDURE: TIBIA FIBULA RIGHT Two-view right tibia-fibula and two-view right femur HISTORY: Pain AP lateral views Two-view right femur: There has been prior right hip arthroplasty. The femoral acetabular components appear aligned and well seated. The visualized osseous structures appear grossly intact. Two-view right tibia fibula: The visualized osseous structures appear normal. There is gross osteopenia which can limit sensitivity for nondisplaced lesions. IMPRESSION: 1. Gross osteopenia could be secondary to osteoporosis. 2. Prior right hip total arthroplasty. No acute findings. Electronically signed by: Federico Brock III, MD (08/09/2020 10:58 AM) [facility] DICTATED and SIGNED BY: FEDERICO BROCK III, MD DATE: 08/09/20 [id number] Course & Med Decision Making: Course & Med Decision Making Pertinent Labs and Imaging studies reviewed. (See chart for details) Patient is a 60-year-old female with a history as CVA that affected her right side, presented to ER for evaluation of right lower extremity pain and swelling. There is no injury, x-ray of her female and her left tib-fib did not show any acute problems. Venous study of her right lower extremity did not show any evidence of DVT. She was given pain medication in the ER, she was feeling much better. Her pain is most likely due to neuropathy pain. Patient will be discharged home with her family. Dontae Disclaimer: Dontae Disclaimer: This electronic medical record was generated, in whole or in part, using a voice recognition dictation system. Departure Departure Impression: Primary Impression: Leg pain Disposition: 01 DC HOME SELF CARE/HOMELESS Condition: IMPROVED Referrals: Marquita AGUILERA MD (PCP) FOLLOW UP WITH YOUR DOCTOR NEXT WEEK Patient Instructions: Leg Cramps Scripts Hydrocodone/Apap 5-325 (NORCO 5-325 TABLET) 1 Each Tablet 1 TAB PO PRN Q6HRS PRN for PAIN, #12 TAB 0 Refills Prov: FELICIANO NEW DO 08/09/20 FELICIANO NEW DO Aug 09, 2020 10:12
[2020-08-09] MEDS ORDERED: HYDROcodone/APAP 5/325MG 1 TAB TABLET PO ONE (10:30)
--- NOTE | 2020-08-09 11:00 | RAD ---
Two-view right tibia-fibula and two-view right femur HISTORY: Pain AP lateral views Two-view right femur: There has been prior right hip arthroplasty. The femoral acetabular components appear aligned and well seated. The visualized osseous structures appear grossly intact. Two-view right tibia fibula: The visualized osseous structures appear normal. There is gross osteopenia which can limit sensitivity for nondisplaced lesions. IMPRESSION: 1. Gross osteopenia could be secondary to osteoporosis. 2. Prior right hip total arthroplasty. No acute findings. Electronically signed by: Danny Morales III, MD (08/09/2020 10:58 AM) [facility]
--- NOTE | 2020-08-09 12:22 | RAD ---
Right Lower Extremity Venous Doppler Ultrasound History: Reason: right leg pain and swelling / Spl. Instructions: / History: Comparison: None Procedure: Color flow, duplex, spectral analysis and 2D images are obtained with and without compression in the area of the common femoral vein, superficial femoral vein - femoral vein junction, main femoral vein (superficial femoral vein) and popliteal vein. Veins of the proximal calf are also imaged. Findings: There is normal duplex flow, color flow and compressibility of all visualized vein segments. No evidence of deep venous thrombus is present. Impression: No evidence of DVT. Electronically signed by: Danny Morales III, MD (08/09/2020 12:19 PM) [facility]
[2020-08-09 12:33] VITALS: BP 212/91
[2020-08-09] MEDS ORDERED: HYDR-3164 PO (12:33)
== END 2020-08-09 15:29 | disposition home or self-care (01) ==
LOC: ER 09:48
DX: M79.604 Pain in right leg (principal); R53.1 Weakness; R60.0 Localized edema; K21.9 Gastro-esophageal reflux disease without esophagitis; F19.90 Other psychoactive substance use, unspecified, uncomplicated; Z86.73 Personal history of transient ischemic attack (TIA), and cerebral infarction without residual deficits; Z85.9 Personal history of malignant neoplasm, unspecified; Z98.890 Other specified postprocedural states; Z88.8 Allergy status to other drugs, medicaments and biological substances
CPT/HCPCS: 73552; 73590; 93971; 99285

== ENCOUNTER 2020-08-26 14:14 | Emergency (ER) | payer MEDICAID ==
[~2020-08-26] VITALS: Ht 160 cm; Wt 54.0 kg
[2020-08-26 14:29] VITALS: BP 181/81
[2020-08-26] MEDS ORDERED: ACETAMINOPHEN/CODEINE 300/30MG TABLET. PO ONE (15:00)
[2020-08-26] MEDS ORDERED: ORPHENADRINE CITRATE 60 MG/2 ML VIAL. IM ONE (15:00)
[2020-08-26] MEDS ORDERED: CYCL5TAB PO (15:09)
[2020-08-26] MEDS ORDERED: IBUP-1007 PO (15:09)
--- NOTE | 2020-08-26 15:10 | PHYS DOC ---
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 She states she did not fall and there is no injury. Patient is mute but can say yes or no. She states it is tight. It is worse with movement. Patient is wheelchair-bound as she has had a CVA in the past with right sided hemiparalysis and mute. Patient unable to rate her pain for me. Patient is able to take herself to the restroom and move her cell from the wheelchair to the toilet without help. Patient has a history of CVA, cancer, GERD, right mastectomy, seizure. She states she did not take any pain med ication for this pain. Review of Systems: Review of Systems: Constitutional: Denies fever or chills. [] Eyes: Denies change in visual acuity. [] HENT: Denies nasal congestion or sore throat. [] Respiratory: Denies cough or shortness of breath. [] Cardiovascular: Denies chest pain or edema. [] GI: Denies abdominal pain, nausea, vomiting, bloody stools or diarrhea. [] : Denies dysuria. [] Musculoskeletal: Denies back pain or joint pain. +Left neck tightness [] Integument: Denies rash. [] Neurologic: Denies headache, focal weakness or sensory changes. [] Endocrine: Denies polyuria or polydipsia. [] Lymphatic: Denies swollen glands. [] Psychiatric: Denies depression or anxiety. [] Heart Score: Risk Factors: Risk Factors: DM, Current or recent (<one month) smoker, HTN, HLP, family history of CAD, obesity. Risk Scores: Score 0 - 3: 2.5% MACE over next 6 weeks - Discharge Home Score 4 - 6: 20.3% MACE over next 6 weeks - Admit for Clinical Observation Score 7 - 10: 72.7% MACE over next 6 weeks - Early Invasive Strategies Allergies: Allergies: Allergies Coded Allergies Type Severity Reaction Last Updated Verified ceftriaxone Allergy Severe SWELLING,HIVES 05/14/20 Yes Physical Exam: PE: Constitutional: Well developed, well nourished, no acute distress, non-toxic appearance. [] HENT: Normocephalic, atraumatic, bilateral external ears normal, oropharynx moist, no oral exudates, nose normal. [] Eyes: PERRLA, EOMI, conjunctiva normal, no discharge. [] Neck: Normal range of motion, no tenderness, supple, no stridor. Left trapezius side of neck tightness and tenderness with palpation [] Cardiovascular:Heart rate regular rhythm, no murmur [] Lungs & Thorax: Bilateral breath sounds clear to auscultation [] Abdomen: Bowel sounds normal, soft, no tenderness, no masses, no pulsatile masses. [] Skin: Warm, dry, no erythema, no rash. [] Back: No tenderness, no CVA tenderness. [] Extremities: No tenderness, no cyanosis, no clubbing, ROM intact, no edema. [] Neurologic: Alert and oriented X 3, normal motor function, normal sensory function, no focal deficits noted. [] Psychologic: Affect normal, judgement normal, mood normal. [] Current Patient Data: Vital Signs: Vital Signs Date Time Temp Pulse Resp B/P (MAP) Pulse Ox O2 Delivery O2 Flow Rate FiO2 08/26/20 14:29 97.3 79 16 181/81 (114) 94 Room Air 97.3 EKG: EKG: [] Radiology/Procedures: Radiology/Procedures: [] Course & Med Decision Making: Course & Med Decision Making Pertinent Labs and Imaging studies reviewed. (See chart for details) See HPI. Slight tenderness and tightness to the left trapezius muscle with palpation. Skin pink warm and dry. Full range of motion of the arm and she can use the extremity. No deformity to any joints or laxities. Full range of motion of her neck. Denies any dizziness or headache, fever, nausea, vomiting, chest pain, diarrhea, shortness of breath, fall, injuries. Denies any numbness or tingling. There is no unilateral arm swelling. Radial pulses are strong present. Cap refill less than 2 seconds. Patient is given Tylenol 3 and orphenadrine in the ED. Patient is to take ibuprofen at home and follow-up with primary care provider. [] Dragon Disclaimer: Dontae Disclaimer: This electronic medical record was generated, in whole or in part, using a voice recognition dictation system. Departure Departure Impression: Primary Impression: Neck pain on left side Disposition: 01 DC HOME SELF CARE/HOMELESS Condition: STABLE Referrals: Marquita AGUILERA MD (PCP) Patient Instructions: Muscle Strain Additional Instructions: Try using a heating pad. Take medication as prescribed and with food. Follow- up with your primary care provider soon as possible. Scripts Ibuprofen (IBUPROFEN) 600 Mg Tablet 600 MG PO PRN Q6HRS PRN for INFLAMMATION, #10 TAB Prov: MARLO HARDY ORE BUYER 08/26/20 Cyclobenzaprine Hcl (CYCLOBENZAPRINE HCL) 5 Mg Tablet 1 TAB PO BID for 3 Days, #6 TAB Prov: MARLO HARDY [employer] BUYER 08/26/20 MARLO HARDY O[employer] BUYER Aug 26, 2020 15:10
== END 2020-08-26 15:27 | disposition home or self-care (01) ==
LOC: ER 14:14
DX: M54.2 Cervicalgia (principal); K21.9 Gastro-esophageal reflux disease without esophagitis; Z87.891 Personal history of nicotine dependence; Z86.73 Personal history of transient ischemic attack (TIA), and cerebral infarction without residual deficits; Z88.1 Allergy status to other antibiotic agents
CPT/HCPCS: 96372; 99283; J2360

== ENCOUNTER 2020-10-28 13:17 | Emergency (ER) | payer MEDICAID ==
[~2020-10-28] VITALS: Ht 165.1 cm; Wt 72.0 kg
[~2020-10-28 13:17] MED LIST changes: +CYCL5TAB PO; +IBUP-1007 PO
[2020-10-28 13:25] VITALS: BP 179/86
--- NOTE | 2020-10-28 15:03 | PHYS DOC ---
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 Patient is not forthcoming and stated this and how he thinks that she is looking for refills for hydrocodone. Patient was not able to provide me full history and left the emergency department before full evaluation could be completed Review of Systems Review of Systems Constitutional: Denies fever or chills [] Eyes: Denies change in visual acuity, redness, or eye pain [] HENT: Denies nasal congestion or sore throat [] Respiratory: Denies cough or shortness of breath [] Cardiovascular: No additional information not addressed in HPI [] GI: Denies abdominal pain, nausea, vomiting, bloody stools or diarrhea [] : Denies dysuria or hematuria [] Musculoskeletal: Denies back pain or joint pain [] Integument: Denies rash or skin lesions [] Neurologic: Denies headache, focal weakness or sensory changes [] Endocrine: Denies polyuria or polydipsia [] All other systems were reviewed and found to be within normal limits, except as documented in this note. Allergies Allergies Allergies Coded Allergies Type Severity Reaction Last Updated Verified ceftriaxone Allergy Severe SWELLING,HIVES 05/14/20 Yes Physical Exam Physical Exam Constitutional: Well developed, well nourished, no acute distress, non-toxic appearance. [] HENT: Normocephalic, atraumatic, bilateral external ears normal, oropharynx moist, no oral exudates, nose normal. [] Eyes: PERRLA, EOMI, conjunctiva normal, no discharge. [] Neck: Normal range of motion, no tenderness, supple, no stridor. [] Cardiovascular:Heart rate regular rhythm, no murmur [] Lungs & Thorax: Bilateral breath sounds clear to auscultation [] Abdomen: Bowel sounds normal, soft, no tenderness, no masses, no pulsatile masses. [] Skin: Warm, dry, no erythema, no rash. [] Back: No tenderness, no CVA tenderness. [] Extremities: No tenderness, no cyanosis, no clubbing, ROM intact, no edema. [] Neurologic: Alert and oriented X 3, normal motor function, normal sensory funct ion, no focal deficits noted. [] Psychologic: Affect normal, judgement normal, mood normal. [] Current Patient Data Vital Signs Vital Signs Date Time Temp Pulse Resp B/P (MAP) Pulse Ox O2 Delivery O2 Flow Rate FiO2 10/28/20 13:25 98.6 69 18 179/86 (117) 96 Room Air 98.6 EKG EKG [] Radiology/Procedures Radiology/Procedures [] Course & Med Decision Making Course & Med Decision Making Pertinent Labs and Imaging studies reviewed. (See chart for details) 60f presenting the emergency department for nonspecific complaints. Patient eloped from the emergency department for a full evaluation could be completed Dragon Disclaimer Dragon Disclaimer This electronic medical record was generated, in whole or in part, using a voice recognition dictation system. Departure Departure Referrals: Marquita AGUILERA MD (PCP) JAYDEN SALVADOR MD Oct 28, 2020 15:03
== END 2020-10-28 14:30 | disposition left against medical advice (07) ==
LOC: ER 13:17
DX: R52 Pain, unspecified (principal); K21.9 Gastro-esophageal reflux disease without esophagitis; F17.200 Nicotine dependence, unspecified, uncomplicated; F19.90 Other psychoactive substance use, unspecified, uncomplicated; Z86.73 Personal history of transient ischemic attack (TIA), and cerebral infarction without residual deficits; Z76.0 Encounter for issue of repeat prescription; Z98.890 Other specified postprocedural states; Z85.9 Personal history of malignant neoplasm, unspecified; Z88.8 Allergy status to other drugs, medicaments and biological substances
CPT/HCPCS: 99283

== ENCOUNTER 2020-11-08 09:14 | Emergency (ER) | payer MEDICAID ==
[~2020-11-08] VITALS: Ht 162.6 cm; Wt 68.1 kg
[~2020-11-08 09:14] MED LIST changes: -POLY17PO28 PO; +POLY17PO52 PO
[2020-11-08 09:18] VITALS: BP 184/81
--- NOTE | 2020-11-08 09:48 | RAD ---
Right foot 3 views. HISTORY: Right foot pain 3 views were taken of the right foot. There is diffuse decreased bone density. There is not evidence of an acute fracture. There is no other acute osseous abnormality. IMPRESSION: 1. Osteoporosis. 2. No fracture or other acute osseous abnormality. Electronically signed by: Dwayne Carver MD (11/08/2020 9:46 AM) [id number]
--- NOTE | 2020-11-08 09:59 | PHYS DOC ---
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 Patient has history of CVA, right side weakness. She has have a brace on her right foot and ankle but since the [facility] lost the brace, patient has increased pain in her right foot area. No leg swelling, no shortness of air, no chest pain. No cough, no fever. Review of Systems: Review of Systems: Constitutional: Denies fever or chills. [] Eyes: Denies change in visual acuity. [] HENT: Denies nasal congestion or sore throat. [] Respiratory: Denies cough or shortness of breath. [] Cardiovascular: Denies chest pain or edema. [] GI: Denies abdominal pain, nausea, vomiting, bloody stools or diarrhea. [] : Denies dysuria. [] Musculoskeletal: Positive for right foot pain Integument: Denies rash. [] Neurologic: Denies headache, focal weakness or sensory changes. [] Endocrine: Denies polyuria or polydipsia. [] Lymphatic: Denies swollen glands. [] Psychiatric: Denies depression or anxiety. [] Heart Score: C/O Chest Pain: N/A Risk Factors: Risk Factors: DM, Current or recent (<one month) smoker, HTN, HLP, family history of CAD, obesity. Risk Scores: Score 0 - 3: 2.5% MACE over next 6 weeks - Discharge Home Score 4 - 6: 20.3% MACE over next 6 weeks - Admit for Clinical Observation Score 7 - 10: 72.7% MACE over next 6 weeks - Early Invasive Strategies Current Medications: Current Medications Medications (Trade) Dose Ordered Sig/Becky Start Time Stop Time Status Last Admin Dose Admin Acetaminophen/ Hydrocodone Bitart (Lortab 5/325) 1 tab 1X ONCE 11/08/20 10:00 11/08/20 10:01 UNV Allergies: Allergies: Allergies Coded Allergies Type Severity Reaction Last Updated Verified ceftriaxone Allergy Severe SWELLING,HIVES 05/14/20 Yes Physical Exam: PE: Constitutional: Well developed, well nourished, no acute distress, non-toxic appearance. [] HENT: Normocephalic, atraumatic, bilateral external ears normal, oropharynx moist, no oral exudates, nose normal. [] Eyes: PERRLA, EOMI, conjunctiva normal, no discharge. [] Neck: Normal range of motion, no tenderness, supple, no stridor. [] Cardiovascular:Heart rate regular rhythm, no murmur [] Lungs & Thorax: Bilateral breath sounds clear to auscultation [] Abdomen: Bowel sounds normal, soft, no tenderness, no masses, no pulsatile masses. [] Skin: Warm, dry, no erythema, no rash. [] Extremities:Right leg is not tender or swelling, right ankle is not tender or swelling, right foot is tender along the lateral part of the foot, no swelling, warm to touch. Neurologic: Alert and oriented X 3, Psychologic: Affect normal, judgement normal, mood normal. [] Current Patient Data: Vital Signs: Vital Signs Date Time Temp Pulse Resp B/P (MAP) Pulse Ox O2 Delivery O2 Flow Rate FiO2 11/08/20 09:18 97.9 84 18 184/81 (115) 97 Room Air 97.9 EKG: EKG: [] Radiology/Procedures: Radiology/Procedures: [][facility] [address] [place] [address] IMAGING REPORT Signed PATIENT: LEXII HAYDEN ACCOUNT: [id number] : 1960 LOCATION: ER AGE: 60 SEX: F EXAM STATUS: REG ER ORD. PHYSICIAN: FELICIANO NEW DO REASON: right foot pain PROCEDURE: FOOT RIGHT 3V Right foot 3 views. HISTORY: Right foot pain 3 views were taken of the right foot. There is diffuse decreased bone density. There is not evidence of an acute fracture. There is no other acute osseous abnormality. IMPRESSION: 1. Osteoporosis. 2. No fracture or other acute osseous abnormality. Electronically signed by: Dwayne Carver MD (11/08/2020 9:46 AM) [id number] DICTATED and SIGNED BY: DWAYNE CARVER MD DATE: 11/08/20 [id number] 0 Course & Med Decision Making: Course & Med Decision Making Pertinent Labs and Imaging studies reviewed. (See chart for details) [] Dragon Disclaimer: Dragon Disclaimer: This electronic medical record was generated, in whole or in part, using a voice recognition dictation system. Departure Departure Impression: Primary Impression: Right foot pain Additional Impression: Arthritis of foot, right Disposition: 01 DC HOME SELF CARE/HOMELESS Condition: STABLE Referrals: Marquita AGUILERA MD (PCP) Follow-up with your doctor as needed next week. Patient Instructions: Arthritis, Nonspecific Additional Instructions: Follow-up with your doctor as needed. Scripts Tramadol Hcl (TRAMADOL HCL) 50 Mg Tablet 50 MG PO Q6HRS PRN for PAIN for 3 Days, #12 TAB Prov: FELICIANO NEW DO 11/08/20 FELICIANO NEW DO Nov 08, 2020 09:59
[2020-11-08] MEDS ORDERED: HYDROcodone/APAP 5/325MG 1 TAB TABLET PO ONE (10:00)
[2020-11-08] MEDS ORDERED: TRAM50TA PO (10:02)
== END 2020-11-08 12:13 | disposition home or self-care (01) ==
LOC: ER 09:14
DX: M19.071 Primary osteoarthritis, right ankle and foot (principal); K21.9 Gastro-esophageal reflux disease without esophagitis; Z86.73 Personal history of transient ischemic attack (TIA), and cerebral infarction without residual deficits; Z87.891 Personal history of nicotine dependence; Z88.1 Allergy status to other antibiotic agents
CPT/HCPCS: 73630; 99283; 99284

== ENCOUNTER 2020-12-16 07:46 | Emergency (ER) | payer MEDICAID ==
[~2020-12-16] VITALS: Ht 160 cm; Wt 65.0 kg
[~2020-12-16 07:46] MED LIST changes: +TRAM50TA PO
[2020-12-16 08:49] VITALS: BP 130/61
--- NOTE | 2020-12-16 08:54 | ED.ADGEN ---
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 Patient has contractures in these and according to her son is to follow-up with orthopedic surgery at . He reports that she gets emotional and calls 911. This is been an ongoing issue for her. There are no new issues at this time. Review of Systems: Review of Systems: Complete ROS is negative unless otherwise documented in HPI Allergies: Allergies: Allergies Coded Allergies Type Severity Reaction Last Updated Verified ceftriaxone Allergy Severe SWELLING,HIVES 05/14/20 Yes Physical Exam: PE: General: Awake, alert, NAD. Well Nourished, well hydrated. Cooperative HEENT: Atraumatic, EOMI, PERRL, airway patent, moist oral mucosa Neck: Supple, trachea midline Respiratory: CTA bilaterally, normal effort, no wheezing/crackles CV: RRR, no murmur, cap refill <2 GI: Soft, nondistended, nontender, no masses MSK: No obvious deformities Skin: Warm, dry, intact Neuro: A&O x3, mumble incomprehensible speech, paralysis of right arm and the leg with contracture Psych: Normal affect, normal mood, not suicidal or homicidal Current Patient Data: Vital Signs: Vital Signs Date Time Temp Pulse Resp B/P (MAP) Pulse Ox O2 Delivery O2 Flow Rate FiO2 12/16/20 07:54 98.3 83 20 163/71 (101) 100 Room Air 98.3 EKG: EKG: [] Heart Score: C/O Chest Pain: N/A Risk Factors: Risk Factors: DM, Current or recent (<one month) smoker, HTN, HLP, family history of CAD, obesity. Risk Scores: Score 0 - 3: 2.5% MACE over next 6 weeks - Discharge Home Score 4 - 6: 20.3% MACE over next 6 weeks - Admit for Clinical Observation Score 7 - 10: 72.7% MACE over next 6 weeks - Early Invasive Strategies Radiology/Procedures: Radiology/Procedures: [] Course & Med Decision Making: Course & Med Decision Making Pertinent Labs and Imaging studies reviewed. (See chart for details) Patient 60-year-old female who presents to the emergency room with contractures to her right wrist and ankle. This is a long going issue. Patient has no new complaints. History is significantly limited due to patient being nonverbal. We did discuss her with her son who states that she does not have any new issues at this time. Patient's test results and vitals while in the ED were fully reviewed and discussed with the patient. Patient is stable and at this time does not need admission to the hospital. We have discussed strict return precautions and the importance of following up with their Primary Care Physician. Patient stated understanding and was given an opportunity to ask any questions. Patient is in agreement with plan. Viancaon Disclaimer: Dontae Disclaimer: This electronic medical record was generated, in whole or in part, using a voice recognition dictation system. Departure Departure Impression: Primary Impression: Right wrist pain Additional Impression: Leg pain Disposition: 01 HOME / SELF CARE / HOMELESS Condition: STABLE Referrals: Marquita AGUILERA MD (PCP) Patient Instructions: Dupuytren's Contracture Problem Qualifiers ABHAY BRADLEY MD Dec 16, 2020 08:54
== END 2020-12-16 09:00 | disposition home or self-care (01) ==
LOC: ER 07:46
DX: M25.531 Pain in right wrist (principal); M25.571 Pain in right ankle and joints of right foot; K21.9 Gastro-esophageal reflux disease without esophagitis; Z86.73 Personal history of transient ischemic attack (TIA), and cerebral infarction without residual deficits; Z87.891 Personal history of nicotine dependence; Z88.1 Allergy status to other antibiotic agents
CPT/HCPCS: 99284

== ENCOUNTER 2021-01-01 09:43 | Emergency (ER) | payer MEDICAID ==
[~2021-01-01] VITALS: Ht 162.6 cm; Wt 68.1 kg
[~2021-01-01 09:43] MED LIST changes: +MIRT-8 PO; -MIRT30TA3 PO
--- NOTE | 2021-01-01 10:44 | PHYS DOC ---
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 She is smiling pointing at her right rib. Patient denies any chest pain. Patient denies any injury. Review of Systems: Review of Systems: Constitutional: Denies fever or chills. [] Eyes: Denies change in visual acuity. [] HENT: Denies nasal congestion or sore throat. [] Respiratory: Denies cough or shortness of breath. [] Cardiovascular: Right rib pain. Denies chest pain or edema. [] GI: Denies abdominal pain, nausea, vomiting, bloody stools or diarrhea. [] : Denies dysuria. [] Musculoskeletal: Denies back pain or joint pain. [] Integument: Denies rash. [] Neurologic: Denies headache, focal weakness or sensory changes. [] Psychiatric: Denies depression or anxiety. [] Heart Score: C/O Chest Pain: N/A Risk Factors: Risk Factors: DM, Current or recent (<one month) smoker, HTN, HLP, family history of CAD, obesity. Risk Scores: Score 0 - 3: 2.5% MACE over next 6 weeks - Discharge Home Score 4 - 6: 20.3% MACE over next 6 weeks - Admit for Clinical Observation Score 7 - 10: 72.7% MACE over next 6 weeks - Early Invasive Strategies Allergies: Allergies: Allergies Coded Allergies Type Severity Reaction Last Updated Verified ceftriaxone Allergy Severe SWELLING,HIVES 05/14/20 Yes Physical Exam: PE: Constitutional: Well developed, well nourished, no acute distress, non-toxic appearance. [] HENT: Normocephalic, atraumatic, bilateral external ears normal, oropharynx moist, no oral exudates, nose normal. [] Eyes: PERRLA, EOMI, conjunctiva normal, no discharge. [] Neck: Normal range of motion, no tenderness, supple, no stridor. [] Cardiovascular:Heart rate regular rhythm, no murmur [] Lungs & Thorax: No bruising, tenderness noted on the right ribs. Bilateral breath sounds clear to auscultation [] Abdomen: Bowel sounds normal, soft, no tenderness, no masses, no pulsatile masses. [] Skin: Warm, dry, no erythema, no rash. [] Back: No tenderness, no CVA tenderness. [] Extremities: No tenderness, no cyanosis, no clubbing, contracted right upper extremity, right lower extremity is in a dropfoot brace. Neurologic: Alert and oriented X 3, normal motor function, normal sensory function, no focal deficits noted. [] Psychologic: Affect normal, judgement normal, mood normal. [] Current Patient Data: Vital Signs: Vital Signs Date Time Temp Pulse Resp B/P (MAP) Pulse Ox O2 Delivery O2 Flow Rate FiO2 01/01/21 09:43 98.1 61 20 155/91 (112) 98 Room Air 98.1 EKG: EK interpreted by Dr. quezada sinus rhythm Hr 53 no STEMI[] Radiology/Procedures: Radiology/Procedures: []PROCEDURE: RIBS RIGHT AND PA CHEST EXAM: Chest and right ribs, 5 views. HISTORY: Pain. COMPARISON: 07/30/2020 FINDINGS: A frontal view of the chest and 4 views of the right ribs are obtained. There is stable suspected right upper lobe pleural parenchymal scarring. There is also biapical pleural parenchymal scarring. There is no consolidation, pleural effusion or pneumothorax. The heart is normal in size. There are right axillary and right chest wall clips. There are chronic appearing right rib fractures. No acute fracture is seen. IMPRESSION: 1. Stable suspected right upper lobe pleural parenchymal scarring superimposed on biapical scarring. This may be due to radiation changes given right mastectomy changes. 2. Chronic appearing right rib fractures. No acute displaced rib fracture is seen. Electronically signed by: Mary Wisdom MD (01/01/2021 11:16 AM) [id number] DICTATED and SIGNED BY: MARY WISDOM MD DATE: 01/01/21 [id number] 0 Course & Med Decision Making: Course & Med Decision Making Pertinent Labs and Imaging studies reviewed. (See chart for details) This is a 60-year-old female patient with history of CVA and aphasic well-known to this ED presenting complaining of right rib pain. Communication is difficult but patient is smiling pointing on her right rib Right rib x-rays interpreted by radiologist were noted for chronic right rib f ractures otherwise no acute findings. Discharge back to home. Follow-up with her own PCP. Dontae Disclaimer: Dontae Disclaimer: This electronic medical record was generated, in whole or in part, using a voice recognition dictation system. Departure Departure Impression: Primary Impression: Rib pain on right side Additional Impression: Right rib fracture Qualified Codes: S22.41XS - Multiple fractures of ribs, right side, sequela Disposition: HOME HEALTH CARE SERVICE Condition: STABLE Referrals: Marquita AGUILERA MD (PCP) follow up in 1-2 weeks Patient Instructions: Rib Fracture Additional Instructions: You were evaluated in the emergency room for right rib pain, your right rib x- rays were negative for any acute findings, you have chronic right rib frac tures. Try and apply ice to the affected area. You can take Tylenol as needed for pain. Please follow-up with your primary care doctor. MARCK MA [employer] Jan 01, 2021 10:44
--- NOTE | 2021-01-01 11:18 | RAD ---
EXAM: Chest and right ribs, 5 views. HISTORY: Pain. COMPARISON: 07/30/2020 FINDINGS: A frontal view of the chest and 4 views of the right ribs are obtained. There is stable zbigniew pected right upper lobe pleural parenchymal scarring. There is also biapical pleural parenchymal scar ring. There is no consolidation, pleural effusion or pneumothorax. The heart is normal in size. There are right axillary and right chest wall clips. There are chronic appearing right rib fractures. No a cute fracture is seen. IMPRESSION: 1. Stable suspected right upper lobe pleural parenchymal scarring superimposed on biapical scarring. This may be due to radiation changes given right mastectomy changes. 2. Chronic appearing right rib fractures. No acute displaced rib fracture is seen. Electronically signed by: Mary Hernandez MD (01/01/2021 11:16 AM) [id number]
[2021-01-01 11:21] VITALS: BP 140/71
== END 2021-01-01 11:50 | disposition home health service (06) ==
LOC: ER 09:43
DX: S22.41XA Multiple fractures of ribs, right side, initial encounter for closed fracture (principal); K21.9 Gastro-esophageal reflux disease without esophagitis; Z87.891 Personal history of nicotine dependence; Z86.73 Personal history of transient ischemic attack (TIA), and cerebral infarction without residual deficits; Z88.1 Allergy status to other antibiotic agents; X58.XXXA Exposure to other specified factors, initial encounter; Y93.89 Activity, other specified; Y92.89 Other specified places as the place of occurrence of the external cause; Y99.8 Other external cause status
CPT/HCPCS: 71101; 93005; 99284

== ENCOUNTER 2021-01-26 15:47 | Emergency (ER) | payer MEDICAID ==
[~2021-01-26] VITALS: Ht 162.6 cm; Wt 68.0 kg
[~2021-01-26 15:47] MED LIST changes: -MIRT-8 PO; +MIRT30TA3 PO
--- NOTE | 2021-01-26 16:29 | PHYS DOC ---
Past Medical History Past Medical History: Cancer, CVA, GERD, Seizure, Other Additional Past Medical Histor: CVA/RIGHT SIDE HEMIPARESIS/NON-VERBAL Past Surgical History: Other Additional Past Surgical Histo: ABDOMINAL VERTICAL SURGICAL SCAR, rt masectomy Smoking Status: Former Smoker Alcohol Use: None Drug Use: None, Benzodiazepine General Adult HPI: HPI: 60-year-old female past medical history of CVA with right-sided hemiparesis and aphasia (only says yes or no/nods head yes or no) presents to the ED brought in by EMS after pressing her med alert button while son/family that care for her, are at work. EMS called pts' son-on law who confirmed that pt often calls 911 while they're at work for chronic pain in her right wrist and right ankle. Upon arrival to ED, nurse was able to wheel patient into the bathroom. Patient asked nurse to leave the bathroom and patient was able to get on the toilet and back into the wheelchair without requiring any assistance. Pt points to the arch of her foot as the site of her pain. Denies any new trauma to the foot. Umesh head no when asked if she has taken any medication for the pain. Patient also here with a note from December 2018-patient points to adoption social worker for the [facility] that completed an APS investigation on December 01, 2018, grabs her phone and umesh head yes to me asking if she wants me to call her. I discussed this with my midlevel who is familiar with patient and assessed her on last ED visit. Patient has brought this note to the ed multiple times. Pt is very well known to ed staff - frequently calls 911 when alone at home. Review of Systems: Review of Systems: Constitutional: Denies fever or chills. [] Eyes: Denies change in visual acuity. [] HENT: Denies nasal congestion or sore throat. [] Respiratory: Denies cough or shortness of breath. [] Cardiovascular: Denies chest pain or edema. [] GI: Denies abdominal pain, nausea, vomiting, bloody stools or diarrhea. [] : Denies dysuria or vaginal bleeding Musculoskeletal: Denies back pain or saddle anesthesia Integument: Denies rash or diaphoresis Neurologic: Denies headache, focal weakness or sensory changes. [] Psychiatric: Denies depression or anxiety. [] Heart Score: C/O Chest Pain: No Risk Factors: Risk Factors: DM, Current or recent (<one month) smoker, HTN, HLP, family history of CAD, obesity. Risk Scores: Score 0 - 3: 2.5% MACE over next 6 weeks - Discharge Home Score 4 - 6: 20.3% MACE over next 6 weeks - Admit for Clinical Observation Score 7 - 10: 72.7% MACE over next 6 weeks - Early Invasive Strategies Allergies: Allergies: Allergies Coded Allergies Type Severity Reaction Last Updated Verified ceftriaxone Allergy Severe SWELLING,HIVES 05/14/20 Yes Physical Exam: PE: Constitutional: Well developed, well nourished, no acute distress, non-toxic appearance. HENT: Normocephalic, atraumatic, Eyes: EOMI, conjunctiva normal, no discharge. Neck: Normal range of motion, supple, Cardiovascular: S1/2 present, regular rhythm Lungs & Thorax: Speaking in full sentences, bilateral equal chest rise, no tachypnea or increased work of breathing Abdomen: soft, no tenderness, Skin: Warm, dry, no erythema, no rash, normal skin turgor, cap refill less than 1 second Back: No midline tenderness, no CVA tenderness. [] Extremities: No tenderness, no cyanosis, no lower extremity edema, equal dp/pt pulses bl, very high arch right foot with mild inversion-suspect chronic from cva/contracted foot, Neurologic: Alert, normal motor function, normal sensory function, no focal deficits noted. [] Psychologic: Affect normal, judgement normal, mood -mild anxiety on arrival although not past patient's room multiple times and patient is calm, in no distress EKG: EKG: [] Radiology/Procedures: Radiology/Procedures: IMAGING REPORT Signed PATIENT: LEXII HAYDEN ACCOUNT: [id number] : 1960 LOCATION: ER AGE: 60 SEX: F EXAM STATUS: REG ER ORD. PHYSICIAN: DELGADO ADAN DO REASON: arch foot pain PROCEDURE: FOOT RIGHT 3V XR FOOT_RIGHT 3 VIEWS History: Reason: arch foot pain / Spl. Instructions: / History: Technique: 3 views right foot Comparison: November 08, 2020 Findings: Degraded evaluation due to patient positioning. Diffuse osteopenia. Flexion contractures of the digits. No dislocation. No definite fracture. Impression: 1. No definite acute osseous abnormality although evaluation is degraded. 2. Diffuse osteopenia. Electronically signed by: Rico Whitaker DO (01/26/2021 6:29 PM) [facility] DICTATED and SIGNED BY: RICO WHITAKER DO DATE: 01/26/21 [id number] 0 Course & Med Decision Making: Course & Med Decision Making Pertinent Labs and Imaging studies reviewed. (See chart for details) Concern for chronic right foot pain with high arch versus contracted foot s/p CVA. Pt well known in ed and staff states her physical exam is pts' baseline. Pt calm/in no distress. Unremarkable foot exam with no signs of infection/trauma. Will discharge home with strict ED return precautions were given for fever, skin color changes, neurologic deficits or inability to bear weight. Encouraged urgent outpatient follow-up with PMD and podiatry/Ortho for definitive management. Life-threatening processes were considered but are low suspicion at this time, given history, physical exam and ED workup. Pt was educated on all prescription medications and adverse effects. All patient's questions were answered and pt was stable at time of discharge. Life/limb-threatening differential includes but is not limited to, avascular necrosis, septic arthritis, malignancy, compartment syndrome, fracture/ligamentous injury/overuse, decompression sickness, seronegative spondyloarthropathies, trauma including dislocation/fracture, Lyme disease, lupus, arthritis differentials, gout/pseudogout or decompression sickness. I spoken with the patient and her caregivers. I explained the patient's condition, diagnoses and treatment plan based on the information available to me at this time. I have answered the patient and her caregiver's questions and addressed any concerns. The patient and her caregivers have a good understanding of patient's diagnosis, condition and treatment plan as can be expected at this point. Vital signs have been stable. Patient's condition is stable and appropriate for discharge from the emergency department. Patient will pursue further outpatient evaluation with primary care physician or other designated or consulting physician as outlined in the discharge instructions. The patient and/or caregivers are agreeable to this plan of care and follow-up instructions have been explained in detail. The patient and/or caregivers have received these instructions in written form and have expressed an understanding of the discharge instructions. The patient and/or caregivers are aware that any significant change of condition or worsening of symptoms should prompt immediate return to this or the closest emergency department or call to 911. Dontae Disclaimer: Dontae Disclaimer: This electronic medical record was generated, in whole or in part, using a voice recognition dictation system. Departure Departure Impression: Primary Impression: Chronic pain in right foot Additional Impression: High foot arch Disposition: HOME / SELF CARE / HOMELESS Condition: STABLE Referrals: Marquita AGUILERA MD (PCP) in 1 week for re-evaluation or FOLLOW UP WITH FAMILY MEDICINE: [address] [place] [address] Patient Instructions: Foot Fracture-Brief Additional Instructions: FOLLOW UP WITH PODIATRY: For definitive management Podiatric Surgery [address], [address] [place] [address] OR FOLLOW UP WITH ORTHOPEDICS: For definitive management Orthopaedic Sports Medicine Orthopaedic Surgery [facility] [address], [address] [place] [address] OR [facility] [address] [place] [address] EMERGENCY DEPARTMENT GENERAL DISCHARGE INSTRUCTIONS Thank you for coming to [facility] Emergency Department (ED) today and trusting us with you care. We trust that you had a positive experience in our Emergency Department. If you wish to speak to the department management, you may call the Director at [phone]. YOUR FOLLOW UP INSTRUCTIONS ARE FOLLOWS: 1. Do you have a private Doctor? If you do not have a private doctor, please ask for a resource list of physicians or clinics that may be able to assist you with follow up care. 2. The Emergency Physicain has interpreted your x-rays. The X-Ray specialist will also review them. If there is a change in the findings, you will be notified in 48 hours when at all possible. 3. A lab test or culture has been done, your results will be reviewed and you will be notified if you need a change in treatment. ADDITIONAL INSTRUCTIONS AND INFORMATION: 1. Your care today has been supervised by a physician who is specially trained in emergency care. Many problems require more than one evaluation for a complete diagnosis and treatment. We recommend that you schedule your follow up appointment as recommended to ensure complete treatment of you illness or injury. If you are unable to obtain follow up care and continue to have a problem, or if your condition worsens, we recommend that you return to the ED. 2. We are not able to safely determine your condition over the phone nor are we able to give sound medical advice over the phone. For these safety reasons, if you call for medical advice we will ask you to come to the ED for further evaluation. 3. If you have any questions regarding these discharge instructions please call the ED at [phone]. SAFETY INFORMATION: In the interest of safety, wellness, and injury prevention; we encourage you to wear your sealbelt, if you smoke; quite smoking, and we encourage family to use a protective helmet for bicycling and other sporting events that present an increased risk for head injury. IF YOUR SYMPTOMS WORSEN OR NEW SYMPTOMS DEVELOP, OR YOU HAVE CONCERNS ABOUT YOUR CONDITION; OR IF YOUR CONDITION WORSENS WHILE YOU ARE WAITING FOR YOUR FOLLOW UP APPOINTMENT; EITHER CONTACT YOUR PRIMARY CARE DOCTOR, THE PHYSICIAN WHOSE NAME AND NUMBER YOU WERE GIVEN, OR RETURN TO THE ED IMMEDIATELY. Scripts Lidocaine (Frank Attila) 1 Each Adh..patch 1 EACH TP DAILY for 5 Days, #5 PATCH Apply 1 patch for 12 hours, remove for another 12 hours. May repeat, 1 patch per day as instructed above. Prov: DELGADO ADAN DO 01/26/21 DELGADO ADAN DO January 26, 2021 16:29
[2021-01-26] MEDS ORDERED: ACETAMINOPHEN 325 MG TABLET. PO ONE (16:30)
[2021-01-26 17:09] VITALS: BP 164/74
[2021-01-26] MEDS ORDERED: LIDO1ADH78 TP (17:50)
--- NOTE | 2021-01-26 18:32 | RAD ---
XR FOOT_RIGHT 3 VIEWS History: Reason: arch foot pain / Spl. Instructions: / History: Technique: 3 views right foot Comparison: November 08, 2020 Findings: Degraded evaluation due to patient positioning. Diffuse osteopenia. Flexion contractures of the digit s. No dislocation. No definite fracture. Impression: 1. No definite acute osseous abnormality although evaluation is degraded. 2. Diffuse osteopenia. Electronically signed by: Rico Whitaker DO (01/26/2021 6:29 PM) [facility]
== END 2021-01-26 19:50 | disposition home or self-care (01) ==
LOC: ER 15:47
DX: G89.29 Other chronic pain (principal); M79.671 Pain in right foot; M21.6X1 Other acquired deformities of right foot; K21.9 Gastro-esophageal reflux disease without esophagitis; Z86.73 Personal history of transient ischemic attack (TIA), and cerebral infarction without residual deficits; Z87.891 Personal history of nicotine dependence; Z88.1 Allergy status to other antibiotic agents
CPT/HCPCS: 73630; 99284

== ENCOUNTER 2021-02-02 12:40 | Emergency (ER) | payer MEDICAID ==
[~2021-02-02] VITALS: Ht 152.4 cm; Wt 59.0 kg
[~2021-02-02 12:40] MED LIST changes: +LIDO1ADH78 TP
[2021-02-02 13:50] LABS: BASO % 1 % (0-3); EOS % 1 % (0-3); HEMATOCRIT 41.5 % (36.0-47.0); HEMOGLOBIN 13.8 g/dL (12.0-15.5); LYMPH # 1.1 x10^3/uL (1.0-4.8); LYMPH % 33 % (24-48); MEAN CORPUSCULAR HEMOGLOBIN 29 pg (25-35); MEAN CORPUSCULAR HGB CONC 33 g/dL (31-37); MEAN CORPUSCULAR VOLUME 87 fL (79-100); MONO # 0.3 x10^3/uL (0.0-1.1); MONO % 9 % (0-9); NEUT # 1.9 x10^3/uL (1.8-7.7); NEUT % 57 % (31-73); PLATELET COUNT 198 x10^3/uL (140-400); RED BLOOD COUNT 4.79 x10^6/uL (3.50-5.40); RED CELL DISTRIBUTION WIDTH 13.5 % (11.5-14.5); WHITE BLOOD COUNT 3.3 x10^3/uL (4.0-11.0)
[2021-02-02 14:02] LABS: ALBUMIN 4.2 g/dL (3.4-5.0); ALBUMIN/GLOBULIN RATIO 0.8 (1.0-1.7); CALCIUM 10.5 mg/dL (8.5-10.1); CREATININE 0.8 mg/dL (0.6-1.0); GFR 88.2; TOTAL BILIRUBIN 0.3 mg/dL (0.2-1.0); TOTAL PROTEIN 9.2 g/dL (6.4-8.2)
[2021-02-02 14:04] LABS: POTASSIUM 2.9 mmol/L (3.5-5.1)
--- NOTE | 2021-02-02 14:09 | ED.ADGEN ---
Past Medical History Past Medical History: Cancer, CVA, GERD, Seizure, Other Additional Past Medical Histor: CVA/RIGHT SIDE HEMIPARESIS/NON-VERBAL Past Surgical History: Other Additional Past Surgical Histo: ABDOMINAL VERTICAL SURGICAL SCAR, rt masectomy Smoking Status: Former Smoker Alcohol Use: None Drug Use: None, Benzodiazepine General Adult EDM: Chief Complaint: ABDOMINAL PAIN HPI: HPI: Patient is a 60 year old AA female with past medical of CVA with right-sided hemiparesis and aphasia (only says yes or no/nods head yes or no) who presents to the ER via EMS with complaints of left lower quadrant abdominal pain. Pt is very well known to ed staff - frequently calls 911 when alone at home. She denies diarrhea chest pain, shortness of breath, dysuria, increased urinary frequency. Nonverbal pain scale results in a pain level 1. HPI is limited due to patient's aphasia history. Review of Systems: Review of Systems: Complete ROS is negative unless otherwise noted in HPI. Current Medications: Current Medications Medications (Trade) Dose Ordered Sig/Becky Start Time Stop Time Status Last Admin Dose Admin Info (CONTRAST GIVEN -- Rx MONITORING) 1 each PRN DAILY PRN 02/02/21 15:15 02/02/21 16:43 DC Iohexol (Omnipaque 300 Mg/ml) 75 ml 1X ONCE 02/02/21 15:15 02/02/21 15:16 DC 02/02/21 15:36 75 ML Potassium Chloride (Klor-Con) 40 meq 1X ONCE 02/02/21 14:30 02/02/21 14:31 DC 02/02/21 14:54 40 MEQ Allergies: Allergies: Allergies Coded Allergies Type Severity Reaction Last Updated Verified ceftriaxone Allergy Severe SWELLING,HIVES 05/14/20 Yes Physical Exam: PE: See Above Constitutional: Well developed, well nourished, no acute distress, non-toxic appearance. [] HENT: Normocephalic, atraumatic, bilateral external ears normal, nose normal. [] Eyes: PERRLA, EOMI, conjunctiva normal, no discharge. [] Neck: Normal range of motion, no stridor. [] Cardiovascular:Heart rate regular rhythm Lungs & Thorax: Respirations even and unlabored, no retractions, no respiratory distress Abdomen: soft, LLQ TTP, no rebound tenderness, no guarding, no palpable mass, no pulsatile mass Skin: Warm, dry, no erythema, no rash. [] Extremities: No cyanosis, ROM intact, no edema; right arm contractures due to right sided hemiparesis after CVA [] Neurologic: Alert and oriented X 3, patient is nonverbal from previous stroke Psychologic: Affect normal, judgement normal, mood normal. [] Current Patient Data: Labs: Laboratory Tests Test 02/02/21 13:35 02/02/21 14:04 White Blood Count 3.3 x10^3/uL (4.0-11.0) L Red Blood Count 4.79 x10^6/uL (3.50-5.40) Hemoglobin 13.8 g/dL (12.0-15.5) Hematocrit 41.5 % (36.0-47.0) Mean Corpuscular Volume 87 fL (79-100) Mean Corpuscular Hemoglobin 29 pg (25-35) Mean Corpuscular Hemoglobin Concent 33 g/dL (31-37) Red Cell Distribution Width 13.5 % (11.5-14.5) Platelet Count 198 x10^3/uL (140-400) Neutrophils (%) (Auto) 57 % (31-73) Lymphocytes (%) (Auto) 33 % (24-48) Monocytes (%) (Auto) 9 % (0-9) Eosinophils (%) (Auto) 1 % (0-3) Basophils (%) (Auto) 1 % (0-3) Neutrophils # (Auto) 1.9 x10^3/uL (1.8-7.7) Lymphocytes # (Auto) 1.1 x10^3/uL (1.0-4.8) Monocytes # (Auto) 0.3 x10^3/uL (0.0-1.1) Eosinophils # (Auto) 0.0 x10^3/uL (0.0-0.7) Basophils # (Auto) 0.0 x10^3/uL (0.0-0.2) Sodium Level 140 mmol/L (136-145) Potassium Level 2.9 mmol/L (3.5-5.1) *L Chloride Level 100 mmol/L (98-107) Carbon Dioxide Level 27 mmol/L (21-32) Anion Gap 13 (6-14) Blood Urea Nitrogen 25 mg/dL (7-20) H Creatinine 0.8 mg/dL (0.6-1.0) Estimated GFR (Cockcroft-Gault) 88.2 BUN/Creatinine Ratio 31 (6-20) H Glucose Level 88 mg/dL (70-99) Calcium Level 10.5 mg/dL (8.5-10.1) H Magnesium Level 2.0 mg/dL (1.8-2.4) Total Bilirubin 0.3 mg/dL (0.2-1.0) Aspartate Amino Transferase (AST) 23 U/L (15-37) Alanine Aminotransferase (ALT) 20 U/L (14-59) Alkaline Phosphatase 106 U/L (46-116) Total Protein 9.2 g/dL (6.4-8.2) H Albumin 4.2 g/dL (3.4-5.0) Albumin/Globulin Ratio 0.8 (1.0-1.7) L Lipase 139 U/L (73-393) Urine Collection Type Void Urine Color Yellow Urine Clarity Clear Urine pH 6.0 (<5.0-8.0) Urine Specific [place] 1.015 (1.000-1.030) Urine Protein Negative mg/dL (NEG-TRACE) Urine Glucose (UA) Negative mg/dL (NEG) Urine Ketones (Stick) Negative mg/dL (NEG) Urine Blood Negative (NEG) Urine Nitrite Negative (NEG) Urine Bilirubin Negative (NEG) Urine Urobilinogen Dipstick 0.2 mg/dL (0.2 mg/dL) Urine Leukocyte Esterase Negative (NEG) Urine RBC Rare /HPF (0-2) Urine WBC Rare /HPF (0-4) Urine Squamous Epithelial Cells Few /LPF Urine Bacteria 0 /HPF (0-FEW) Laboratory Tests 02/02/21 13:35 Laboratory Tests 02/02/21 13:35 Vital Signs: Vital Signs Date Time Temp Pulse Resp B/P (MAP) Pulse Ox O2 Delivery O2 Flow Rate FiO2 02/02/21 16:00 88 17 170/79 (109) 96 Room Air 02/02/21 12:40 98.6 98.6 EKG: EKG: [] Heart Score: C/O Chest Pain: No Risk Scores: Score 0 - 3: 2.5% MACE over next 6 weeks - Discharge Home Score 4 - 6: 20.3% MACE over next 6 weeks - Admit for Clinical Observation Score 7 - 10: 72.7% MACE over next 6 weeks - Early Invasive Strategies Radiology/Procedures: Radiology/Procedures: PROCEDURE: CT ABD PELV W/ IV CONTRST ONLY PQRS Compliance Statement: One or more of the following individualized dose reduction techniques were utili zed for this examination: 1. Automated exposure control 2. Adjustment of the mA and/or kV according to patient size 3. Use of iterative reconstruction technique Exam performed: CT abdomen and pelvis with contrast HISTORY: Left lower quadrant Abdominal pain DATE OF SERVICE: 02/02/2021. COMPARISON: CT abdomen and pelvis without contrast from 12/27/2019. TECHNIQUE: Contiguous helical acquisitions are obtained through the abdomen and pelvis during intravenous demonstration of IV contrast. Sagittal and coronal reformatted images are obtained and reviewed. FINDINGS: Lung bases are clear. The visualized heart is normal. The liver, spleen, pancreas and gallbladder appear normal. Both adrenal glands and bilateral kidneys are normal in size with symmetric excretion of contrast via both kidneys. There is no hydronephrosis or nephrolithiasis. Small bilateral renal cysts are identified. Aorta is normal in caliber without aneurysm. There is extensive stool throughout the colon. Small bowel loops appear normal. Appendix is not clearly seen. Urinary bladder appears distended although extensive streak artifact relating from right hip arthroplasty limits evaluation of pelvic structures. No large pelvic masses are identified. Interrogation of bone windows appears grossly unremarkable. Mild spondylotic changes are present. IMPRESSION: No acute intra-abdominal or pelvic process seen. Extensive scattered stool throughout the colon. Correlate clinically for constipation. Electronically signed by: Brenda Correa MD (02/02/2021 4:02 PM) [facility] [] Course & Med Decision Making: Course & Med Decision Making Pertinent Labs and Imaging studies reviewed. (See chart for details) 60-year-old female well-known to the emergency department presents emergency room with complaints of lower left quadrant abdominal pain. CBC revealed a white blood cell count of 3.3, this is normal for the patient after review of her history; CMP revealed a potassium of 2.9, the patient was given 40 mEq of p.o. potassium in the emergency department, BUN was 25, elevated BUN/creatinine ratio 31, calcium of 10.5, otherwise unremarkable; urinalysis revealed no acute findings. After while waiting for the abdominal pelvis CT result the patient became frustrated and demanded to leave. She left AGAINST MEDICAL ADVICE. CT did not reveal any acute findings. [] Dragon Disclaimer: Dragon Disclaimer: This electronic medical record was generated, in whole or in part, using a voice recognition dictation system. Departure Departure Referrals: Marquita AGUILERA MD (PCP) WICHO SMITH APRN February 02, 2021 14:09
[2021-02-02 14:18] LABS: BILIRUBIN,URINE NEGATIVE (NEG); CLARITY,URINE CLEAR; COLOR,URINE YELLOW; NITRITE,URINE NEGATIVE (NEG); PROTEIN,URINE NEGATIVE (NEG-TRACE); UROBILINOGEN,URINE 0.2 mg/dL (0.2 mg/dL)
[2021-02-02 14:24] LABS: BACTERIA,URINE 0 /HPF (0-FEW); RBC,URINE RARE /HPF (0-2); WBC,URINE RARE /HPF (0-4)
[2021-02-02] MEDS ORDERED: POTASSIUM CHLORIDE 20 MEQ TABLET.ER. PO ONE (14:30)
[2021-02-02] MEDS ORDERED: CONTRAST GIVEN. MC PRN (15:15)
[2021-02-02] MEDS ORDERED: IOHEXOL 300 MG/ML 100ML VIAL. IV ONE (15:15)
[2021-02-02 16:00] VITALS: BP 170/79
--- NOTE | 2021-02-02 16:04 | RAD ---
PQRS Compliance Statement: One or more of the following individualized dose reduction techniques were utilized for this examinat ion: 1. Automated exposure control 2. Adjustment of the mA and/or kV according to patient size 3. Use of iterative reconstruction technique Exam performed: CT abdomen and pelvis with contrast HISTORY: Left lower quadrant Abdominal pain DATE OF SERVICE: 02/02/2021. COMPARISON: CT abdomen and pelvis without contrast from 12/27/2019. TECHNIQUE: Contiguous helical acquisitions are obtained through the abdomen and pelvis during intrave nous demonstration of IV contrast. Sagittal and coronal reformatted images are obtained and reviewed. FINDINGS: Lung bases are clear. The visualized heart is normal. The liver, spleen, pancreas and gallbladder appear normal. Both adrenal glands and bilateral kidneys are normal in size with symmetric excretion of contrast via both kidneys. There is no hydronephrosis or nephrolithiasis. Small bilateral renal cysts are identified. Aorta is normal in caliber without an eurysm. There is extensive stool throughout the colon. Small bowel loops appear normal. Appendix is n ot clearly seen. Urinary bladder appears distended although extensive streak artifact relating from right hip arthropl asty limits evaluation of pelvic structures. No large pelvic masses are identified. Interrogation of bone windows appears grossly unremarkable. Mild spondylotic changes are present. IMPRESSION: No acute intra-abdominal or pelvic process seen. Extensive scattered stool throughout the colon. Correlate clinically for constipation. Electronically signed by: Brenda Correa MD (02/02/2021 4:02 PM) [facility]
== END 2021-02-02 16:05 | disposition left against medical advice (07) ==
LOC: ER 12:40
DX: R10.32 Left lower quadrant pain (principal); K21.9 Gastro-esophageal reflux disease without esophagitis; Z86.73 Personal history of transient ischemic attack (TIA), and cerebral infarction without residual deficits; Z88.8 Allergy status to other drugs, medicaments and biological substances
CPT/HCPCS: 36415; 74177; 80053; 81001; 83690; 83735; 85025; 99285; Q9967

== ENCOUNTER 2021-02-17 14:25 | Emergency (ER) | payer MEDICAID ==
[~2021-02-17] VITALS: Ht 162.6 cm; Wt 85.0 kg
[~2021-02-17 14:25] MED LIST changes: +MIRT-8 PO; -MIRT30TA3 PO
--- NOTE | 2021-02-17 15:32 | PHYS DOC ---
Past Medical History Past Medical History: Cancer, CVA, GERD, Hypertension, Seizure, Other Additional Past Medical Histor: CVA/RIGHT SIDE HEMIPARESIS/NON-VERBAL (MARCK MA [employer]SEMBLER) Past Surgical History: Other Additional Past Surgical Histo: ABDOMINAL VERTICAL SURGICAL SCAR, rt masectomy (MARCK MA [employer]SEM[employer]) Smoking Status: Former Smoker Alcohol Use: None Drug Use: None, Benzodiazepine (MARCK MA [employer]SEM[employer]ER) General Adult EDM: Chief Complaint: LOWER EXT PAIN HPI: HPI: Patient is a 60 year old female with a history of CVA, hypertension, who presents to the ED today complaining of chronic right lower extremity pain. Patient has some expressive aphasia, occasionally she can answer yes to no questions but is very difficult to decipher the accuracy of her answers. (MARCK MA [employer] ASSEMBLER) Review of Systems: Review of Systems: Constitutional: Denies fever or chills. [] Eyes: Denies change in visual acuity. [] HENT: Denies nasal congestion or sore throat. [] Respiratory: Denies cough or shortness of breath. [] Cardiovascular: Denies chest pain or edema. [] GI: Denies abdominal pain, nausea, vomiting, bloody stools or diarrhea. [] : Denies dysuria. [] Musculoskeletal: Reports chronic right lower extremity pain. Denies back pain Integument: Denies rash. [] Neurologic: Denies headache, focal weakness or sensory changes. [] Psychiatric: Denies depression or anxiety. [] (MARCK MA [employer] ASSEMBLER) Heart Score: C/O Chest Pain: N/A Risk Factors: Risk Factors: DM, Current or recent (<one month) smoker, HTN, HLP, family hist ory of CAD, obesity. Risk Scores: Score 0 - 3: 2.5% MACE over next 6 weeks - Discharge Home Score 4 - 6: 20.3% MACE over next 6 weeks - Admit for Clinical Observation Score 7 - 10: 72.7% MACE over next 6 weeks - Early Invasive Strategies (MARCK MA [employer] ASSEMBLER) Allergies: Allergies: Allergies Coded Allergies Type Severity Reaction Last Updated Verified ceftriaxone Allergy Severe SWELLING,HIVES 05/14/20 Yes (MARCK [employer]SEM[employer]ER) Physical Exam: PE: Constitutional: Well developed, well nourished, no acute distress, non-toxic appearance. [] HENT: Normocephalic, atraumatic, bilateral external ears normal, oropharynx moist, no oral exudates, nose normal. [] Eyes: PERRLA, EOMI, conjunctiva normal, no discharge. [] Neck: Normal range of motion, no tenderness, supple, no stridor. [] Cardiovascular:Heart rate regular rhythm, no murmur [] Lungs & Thorax: Bilateral breath sounds clear to auscultation [] Abdomen: Bowel sounds normal, soft, no tenderness, no masses, no pulsatile kendy s. [] Skin: Warm, dry, no erythema, no rash. [] Back: No tenderness, no CVA tenderness. [] Extremities: No tenderness, no cyanosis, no clubbing, contracted upper and lower extremities to the right. No tenderness on exam to the right lower extremity, no bruising, no signs of trauma. Neurologic: Alert and oriented X 3, normal motor function, normal sensory function, no focal deficits noted. [] Psychologic: Affect normal, judgement normal, mood normal. [] (MARCK MA [employer] ASSEMBLER) Current Patient Data: Vital Signs: Vital Signs Date Time Temp Pulse Resp B/P (MAP) Pulse Ox O2 Delivery O2 Flow Rate FiO2 02/17/21 14:34 98.0 64 18 132/60 (84) 100 Room Air 98.0 (MARCK [employer]SEM[employer]ER) EKG: EKG: [] (MARCK MA APRN) Radiology/Procedures: Radiology/Procedures: [] (MARCK MA APRN) Course & Med Decision Making: Course & Med Decision Making Pertinent Labs and Imaging studies reviewed. (See chart for details) This is a 60-year-old female patient well-known to this ED presenting today with right lower extremity pain. Pain is chronic, no known injury. Venous Doppler of the right lower extremity is negative. Discharge to home. (MARCK MA [employer] ASSEMBLER) Dragon Disclaimer: Dragon Disclaimer: This electronic medical record was generated, in whole or in part, using a voice recognition dictation system. (MARCK MA [employer] ASSEMBLER) Departure Departure Impression: Primary Impression: Chronic pain of right lower extremity Disposition: 01 HOME / SELF CARE / HOMELESS Condition: STABLE Referrals: Marquita AGUILERA MD (PCP) Follow-up in 1 week Patient Instructions: Musculoskeletal Pain Additional Instructions: You were seen in the emergency room, we did an ultrasound of your right lower extremity which was negative for any acute findings. Please follow-up with your doctor in 1 to 2 weeks. Attending Signature I have participated in the care of this patient and I have reviewed and agree with all pertinent clinical information above including history, exam, and recommendations. (DEQUAN SALGADO DO) MARCK MA APRN Feb 17, 2021 15:32 DEQUAN SALGADO DO Feb 17, 2021 16:42
--- NOTE | 2021-02-17 16:35 | RAD ---
Right lower extremity venous duplex study 02/17/2021 Clinical History: Right leg pain. Technique: Using a combination of real time ultrasound imaging and color-flow and pulse Doppler imagi ng techniques along with graded compression and augmentation, duplex evaluation of the deep venous sy stem of the right lower extremity was performed. Multiple images were obtained. Findings: There is no sonographic evidence of deep venous thrombosis involving the visualized deep ve nous structures of the right lower extremity. Impression: Negative study. Electronically signed by: Macho Brennan MD (02/17/2021 4:32 PM) [id number]
[2021-02-17 17:49] VITALS: BP 134/71
== END 2021-02-17 18:10 | disposition home or self-care (01) ==
LOC: ER 14:25
DX: G89.29 Other chronic pain (principal); M79.604 Pain in right leg; R47.01 Aphasia; K21.9 Gastro-esophageal reflux disease without esophagitis; Z86.73 Personal history of transient ischemic attack (TIA), and cerebral infarction without residual deficits; I10 Essential (primary) hypertension; Z87.891 Personal history of nicotine dependence
CPT/HCPCS: 93971; 99284-25

== ENCOUNTER 2021-02-24 12:49 | Emergency (ER) | payer MEDICAID ==
[~2021-02-24] VITALS: Ht 162.6 cm; Wt 85.0 kg
[2021-02-24 13:00] VITALS: BP 130/64
--- NOTE | 2021-02-24 15:45 | ED.ADGEN ---
Past Medical History Past Medical History: Cancer, CVA, GERD, Hypertension, Seizure, Other Additional Past Medical Histor: CVA/RIGHT SIDE HEMIPARESIS/NON-VERBAL Past Surgical History: Other Additional Past Surgical Histo: ABDOMINAL VERTICAL SURGICAL SCAR, rt masectomy Smoking Status: Former Smoker Alcohol Use: None Drug Use: None, Benzodiazepine General Adult EDM: Chief Complaint: LOWER EXT PAIN HPI: HPI: Patient is a 60 year old AA female with past medical of CVA with right-sided hemiparesis and aphasia (only says yes or no/nods head yes or no) who presents to the ER via EMS with complaints of right foot pain. Pt is very well known to ed staff - frequently calls 911 when alone at home. Patient denies any new injury to her foot. HPI is limited due to patient's aphasia history. Using the faces pain scale the patient currently rates her pain a 1 out of 10 on the pain scale. Review of Systems: Review of Systems: Complete ROS is negative unless otherwise noted in HPI. Allergies: Allergies: Allergies Coded Allergies Type Severity Reaction Last Updated Verified ceftriaxone Allergy Severe SWELLING,HIVES 05/14/20 Yes Physical Exam: PE: See Above Constitutional: Well developed, well nourished, no acute distress, non-toxic appearance. [] HENT: Normocephalic, atraumatic, bilateral external ears normal, nose normal. [] Eyes: PERRLA, EOMI, conjunctiva normal, no discharge. [] Neck: Normal range of motion, no stridor. [] Cardiovascular:Heart rate regular rhythm Lungs & Thorax: Respirations even and unlabored, no retractions, no respiratory distress Skin: Warm, dry, no erythema, no rash. [] Extremities: Right foot: No obvious deformity, no tenderness, no cyanosis, ROM intact, no edema. [] Neurologic: Alert and oriented X 3, expressive aphasia present, right arm cont ractures Psychologic: Affect normal, judgement normal, mood normal. [] EKG: EKG: [] Heart Score: C/O Chest Pain: No Radiology/Procedures: Radiology/Procedures: PROCEDURE: FOOT RIGHT 3V XR FOOT_RIGHT 3 VIEWS History: Reason: r foot pain / Spl. Instructions: / History: Technique: 3 views right foot Comparison: January 26, 2021 Findings: Osteopenia. Flexion contracture of the digits. No definite fracture or d islocation although evaluation is degraded. Impression: 1. No acute osseous abnormality although evaluation is degraded. 2. Diffuse osteopenia. Electronically signed by: Rico Whitaker DO (02/24/2021 3:21 PM) [facility] Course & Med Decision Making: Course & Med Decision Making Pertinent Labs and Imaging studies reviewed. (See chart for details) 60-year-old female presents emergency department with complaints of right foot pain. X-ray was negative for any acute fractures or findings. During the stay the patient also reported to myself and nursing staff that she was not safe at home. I offered to have the patient admitted to look for placement at a care facility where the patient would be safe. The patient refused admission to the hospital and did not want to be admitted. Later in the visit the patient denied any concerns of safety at home to her nurse. Patient's nurse Val, made a report to Adult Protective Services about the patient's complaint of not being safe. Patient requested to go home. I encouraged her to follow-up with her primary care doctor for further evaluation of her ongoing foot pain. [] Dragon Disclaimer: Dragon Disclaimer: This electronic medical record was generated, in whole or in part, using a voice recognition dictation system. Departure Departure Impression: Primary Impression: Chronic pain in right foot Disposition: 01 HOME / SELF CARE / HOMELESS Condition: STABLE Referrals: Marquita AGUILERA MD (PCP) Patient Instructions: Chronic Pain Additional Instructions: You may take Tylenol or ibuprofen as needed for pain. Follow-up with your primary care doctor for further evaluation of your chronic pain. Return to the ER if symptoms worsen or fever develops. WICHO SMITH KEY RINGER Feb 24, 2021 15:45
== END 2021-02-24 16:40 | disposition home or self-care (01) ==
LOC: ER 12:49
DX: G89.29 Other chronic pain (principal); M79.671 Pain in right foot; I10 Essential (primary) hypertension; K21.9 Gastro-esophageal reflux disease without esophagitis; Z86.73 Personal history of transient ischemic attack (TIA), and cerebral infarction without residual deficits; Z87.891 Personal history of nicotine dependence; Z88.1 Allergy status to other antibiotic agents
CPT/HCPCS: 99284

== ENCOUNTER 2021-10-03 10:07 | Emergency (ER) | payer MEDICAID ==
[~2021-10-03] VITALS: Ht 157.5 cm; Wt 68.1 kg
[2021-10-03 10:07] VITALS: BP 130/64
[~2021-10-03 10:07] MED LIST changes: -DOXY100C2 PO; +DOXY100C3 PO
--- NOTE | 2021-10-03 10:35 | PHYS DOC ---
Past Medical History Past Medical History: Cancer, CVA, GERD, Hypertension, Seizure, Other Additional Past Medical Histor: CVA/RIGHT SIDE HEMIPARESIS/NON-VERBAL,BREAST CA Past Surgical History: Other Additional Past Surgical Histo: ABDOMINAL VERTICAL SURGICAL SCAR, rt masectomy Smoking Status: Former Smoker Alcohol Use: None Drug Use: None, Benzodiazepine General Adult EDM: Chief Complaint: SORE THROAT HPI: HPI: Patient is a 61 year old female with residual deficits status post CVA who presents with sore throat for the past couple of weeks. She reports associated nasal congestion and cough without sputum production, shortness of breath or fe bam. Patient denies sick contacts. She has not been vaccinated against COVID- 19 or received a flu shot this season. Review of Systems: Review of Systems: Constitutional: Denies fever, chills or generalized weakness Eyes: Denies change in visual acuity, visual field deficits or discharge HENT: See HPI Respiratory: See HPI Cardiovascular: Denies chest pain, palpitations or edema GI: Denies abdominal pain, nausea, vomiting, bloody stools or diarrhea : Denies dysuria or hematuria Musculoskeletal: Denies back pain or joint pain Integument: Denies rash or other skin lesion Heart Score: C/O Chest Pain: No Allergies: Allergies: Allergies Coded Allergies Type Severity Reaction Last Updated Verified ceftriaxone Allergy Severe SWELLING,HIVES 05/14/20 Yes Physical Exam: PE: Constitutional: Well developed, well nourished, no acute distress, non-toxic appearance. HENT: Normocephalic, atraumatic, bilateral external ears without deformity or discharge, oropharynx moist, no oral exudates, nose without deformity or discharge. Eyes: EOMI, conjunctiva normal, no discharge. Neck: Normal range of motion, no tenderness, trachea midline, supple, no stridor. Skin: Warm, dry, no erythema, no rash. Extremities: No tenderness, no cyanosis, no clubbing, ROM intact, no edema. Current Patient Data: Labs: Laboratory Tests Test 10/03/21 10:48 Influenza Type A Antigen Negative (NEGATIVE) Influenza Type B Antigen Negative (NEGATIVE) Vital Signs: Vital Signs Date Time Temp Pulse Resp B/P (MAP) Pulse Ox O2 Delivery O2 Flow Rate FiO2 10/03/21 10:07 97.6 72 17 130/64 (86) 100 Room Air 97.6 Course & Med Decision Making: Course & Med Decision Making Pertinent Labs and Imaging studies reviewed. (See chart for details) Patient is a 61-year-old female who presents with sore throat and cough. Work- up will include swabs for influenza A&B as well as COVID-19. She is given supportive treatment measures, quarantine/isolation instructions, and return precautions. Patient understands and is agreeable to discharge plan. Dragon Disclaimer: Dragon Disclaimer: This electronic medical record was generated, in whole or in part, using a voice recognition dictation system. Departure Departure Impression: Primary Impression: Upper respiratory infection Qualified Codes: J00 - Acute nasopharyngitis [common cold] Disposition: HOME / SELF CARE / HOMELESS Condition: STABLE Referrals: Marquita AGUILERA MD (PCP) Patient Instructions: Sinusitis, [id number], Viral Syndrome Additional Instructions: Follow the following supportive treatment measures: - Cool mist humidifier with plain water at bedside while you sleep - Mucinex (guaifenesin) per box instructions - Tessalon perles (benzonatate) for cough, especially at night before bed - Throat lozenges with benzocaine (example Cepacol) for throat discomfort - Alternate ibuprofen and acetaminophen every four hours for body aches/ fever/headache If antibiotics were prescribed, take them as directed. You have been tested for or diagnosed with COVID-19 infection. It is an infection caused by a new type of coronavirus. COVID-19 will cause cold-like or mild flu symptoms in most. It can cause more severe symptoms like problems breathing in some. There is no treatment for COVID-19. The body will clear the infection over time. Self-care will help to ease discomfort. Steps to Take: - Rest as needed. - Choose healthy foods including fruits and vegetables. Drink water throughout the day. - Get plenty of sleep each night. - If you smoke, try to quit. It may ease breathing. - Avoid alcohol. - Keep Others Healthy - The virus can spread to others. Droplets are released every time you sneeze or cough. The droplets can get into the mouth, nose, or eyes of people near you and lead to infection. To lower the chances of spreading COVID-19 to others: Stay at home until your doctor has said it is safe to leave. If you tested positive this will mean staying isolated until both of the following are true: - At least 10 days have passed since the start of illness. - You are free of fever for at least 72 hours without the use of medicine. During this time: - Avoid public areas, events, or transportation. Do not return to work or school until your doctor has said it is safe to do so. - Call ahead if you need to go to a medical center. Let them know you may have COVID-19. It will help them guide you where to go. They may also ask you to wear a facemask when you come to the office. - If you call for emergency medical services, let them know you may have COVID- 19. While at home: - Try to avoid close contact with others. Stay about 6 feet away. - If possible, spend most of your time in a separate room from others. - Use a face mask if you will be in close contact with others such as sharing a room or vehicle. - Have someone wipe down common surfaces in the home. Use household precinct police lieutenant every day on areas like doorknobs, counters, or sinks. - Cough or sneeze into a tissue. Throw the tissue away right after use. If a tissue is not available, cough or sneeze into your elbow. - Wash your hands often. Wash them after sneezing or coughing. Use soap and water and wash or at least 20 seconds. Alcohol based hand beer coil cleaner can be used if soap and water is not available. - Do not prepare food for others. Avoid sharing personal items like forks, spoons, or toothbrushes. - Avoid close contact with pets while you are sick. There is no evidence of the virus passing to pets. This is a safety step until more is known about this virus. - Isolation can be frustrating. Social interaction can help. Keep in touch with friends and family through phone and tech options. You can still interact with others in your home, just keep a safe distance of about 6 feet. Follow-up: - Your doctors office will check in with you to see if there are any changes in your health. - You may be asked to keep track of symptoms to share with them. They will also let you know when you are clear to be in public again. Contact your doctor if your recovery is not going as you expect. Get emergency care if you have problems such as: - Trouble breathing with oxygen saturation <90% - Nonstop chest pain or pressure - Changes in awareness, confusion, or problems waking - Lips or face have bluish color - Worsening of symptoms If you think you have an emergency, call for emergency medical services right away. [facility] from [facility] [employer] Benzonatate (BENZONATATE) 100 Mg Capsule 1-2 CAP PO Q4HRS, #60 CAP Prov: CONSUELO SUTTON 10/03/21 CONSUELO SUTTON Oct 03, 2021 10:35
[2021-10-03] MEDS ORDERED: BENZOCAINE/MENTHOL LOZENGE. PO PRN (10:45)
[2021-10-03] MEDS ORDERED: BENZONATATE 100 MG CAPSULE. PO ONE (10:45)
[2021-10-03 11:15] LABS: INFLUENZA A PATIENT NEGATIVE (NEGATIVE); INFLUENZA B PATIENT NEGATIVE (NEGATIVE)
[2021-10-03] MEDS ORDERED: BENZ-8 PO (11:26)
--- NOTE | 2021-10-05 10:51 | NUR ---
IP: Informed son on pt's covid positive test and the need for her to quarantine for 10 days. Pt without a phone so he will let her know.
== END 2021-10-03 13:21 | disposition home or self-care (01) ==
LOC: ER 10:07
DX: U07.1 COVID-19 (principal); J00 Acute nasopharyngitis [common cold]; K21.9 Gastro-esophageal reflux disease without esophagitis; I10 Essential (primary) hypertension; Z86.73 Personal history of transient ischemic attack (TIA), and cerebral infarction without residual deficits; Z87.891 Personal history of nicotine dependence; Z88.1 Allergy status to other antibiotic agents
CPT/HCPCS: 87428; 99284; U0003; U0005